=== PATIENT | male | born 1965 | race Caucasian/White ===

== ENCOUNTER → 2019-01-11 | Outpatient (CLI) | payer BC, SELFPAY ==
[2019-01-11 12:43] LABS: Absolute Lymphocyte Count 1.07 X10^3/uL (0.83-4.51); Absolute Neutrophil Count 3.6 X10^3/uL (2.0-7.7); Basophil# 0.04 X10^3/uL; Basophil% 0.7 % (0-1); Eosinophil# 0.46 X10^3/uL; Eosinophils% 8.2 % (0-5); Hematocrit 46.7 % (40-54); Hemoglobin 15.7 g/dL (13.0-16.5); Lymphocyte # 1.07 X10^3/ul (4.0); Lymphocyte % 19.1 % (19-41); Mean Corp Hgb Conc 33.6 g/dL (32-36); Mean Corpuscular Hgb 31.2 pg (27.0-32.0); Mean Corpuscular Volume 92.7 fL (80-94); Mean Platelet Vol. 8.8 fl (6.2-12.0); Monocyte# 0.47 X10^3/uL; Monocyte% 8.4 % (0-10); NRBC Flagged by Analyzer 0 % (0-5); Neutrophil # 3.55 X10^3/uL (2.7-7.7); Neutrophil % 63.4 % (47-70); Platelet Count 305 K/mm3 (150-450); RBC Distribution Width CV 11.9 % (11.6-14.6); RBC Distribution Width SD 40.7 fl (35.1-43.9); Red Blood Count 5.04 M/mm3 (4.6-6.2); White Blood Count 5.6 K/mm3 (4.4-11.0)
[2019-01-11 13:18] LABS: AST(SGOT) 23 U/L (15-37); Alanine Aminotransfer ALT/SGPT 38 U/L (16-61); Albumin, Serum 4.1 g/dL (3.2-5.0); Alkaline Phosphatase 51 U/L (45-117); Anion Gap 9 (5-15); BUN 16 mg/dL (7-18); BUN/Creat Ratio 13.4 RATIO (10-20); Calcium,Total 9.4 mg/dL (8.5-10.1); Chloride 105 mmol/L (98-107); Creatinine, Serum 1.19 mg/dL (0.70-1.30); EST Glomerular Filtration Rate 68 mL/min (>60); Est Glom Filt Rate - Afr Amer 82 mL/min (>60); Globulin 4.1 g/dL (2.2-4.2); Glucose 116 mg/dL (74-106); Potassium 4.2 mmol/L (3.5-5.1); Protein, Total 8.2 g/dL (6.4-8.2); Sodium Level 140 mmol/L (136-145); Thyroid Stim Hormone (TSH) 0.99 uIU/mL (0.358-3.74)
[2019-01-11 13:59] LABS: Hepatitis C Antibody Non-Reactive (Nonreactive)
== END | disposition home or self-care (01) ==
LOC: POLAB3 11:06
PROVIDERS: Family Provider Family Medicine Geriatric Medicine; PCP Family Medicine Geriatric Medicine; Visit Provider Family Medicine Geriatric Medicine
DX: Z00.00 Encounter for general adult medical examination without abnormal findings (principal); Z13.89 Encounter for screening for other disorder
CPT/HCPCS: 36415; 80053; 84443; 85025; 86803

== ENCOUNTER → 2019-07-02 14:27 | Outpatient (CLI) | payer BC, SELFPAY ==
--- NOTE | 2019-07-02 14:35 | RAD_ITS ---
STUDY: X-RAY - LUMBAR SPINE REASON FOR EXAM: Male, 53 years old. Pain TECHNIQUE: 4 view(s) of the lumbar spine were obtained. COMPARISON: None FINDINGS: There is no evidence of fracture or dislocation in the lumbar spine. The vertebral body heights are well-maintained. There are mild degenerative changes in the lower lumbar spine with disc space narrowing at L4/L5 and L5/S1. There is grade 1 anterolisthesis of L5 with respect to S1. RAD/L/S Spine Min 4 Views IMPRESSION: No fracture or dislocation in the lumbar spine. Mild degenerative changes in the lower lumbar spine. Grade 1 anterolisthesis of L5 with respect to S1. Electronically Signed: Mo Duckworth, at 15:05 EST Tel , Service support ,
== END ==
PROVIDERS: PCP Family Medicine Geriatric Medicine; Referring Provider Chiropractor; Visit Provider Chiropractor
DX: S33.5XXA Sprain of ligaments of lumbar spine, initial encounter (principal)
CPT/HCPCS: 72110

== ENCOUNTER → 2020-01-13 08:53 | Outpatient (CLI) | payer BC, SELFPAY ==
[2020-01-13 12:27] LABS: Absolute Lymphocyte Count 1.21 X10^3/uL (0.83-4.51); Absolute Neutrophil Count 3.1 X10^3/uL (2.0-7.7); Basophil# 0.04 X10^3/uL; Basophil% 0.8 % (0-1); Eosinophil# 0.28 X10^3/uL; Eosinophils% 5.5 % (0-5); Hematocrit 47.5 % (40-54); Hemoglobin 15.9 g/dL (13.0-16.5); Lymphocyte # 1.21 X10^3/ul (4.0); Lymphocyte % 23.9 % (19-41); Mean Corp Hgb Conc 33.5 g/dL (32-36); Mean Corpuscular Volume 92.6 fL (80-94); Mean Platelet Vol. 8.9 fl (6.2-12.0); Monocyte# 0.37 X10^3/uL; Monocyte% 7.3 % (0-10); NRBC Flagged by Analyzer 0 % (0-5); Neutrophil # 3.14 X10^3/uL (2.7-7.7); Neutrophil % 62.1 % (47-70); Platelet Count 340 K/mm3 (150-450); RBC Distribution Width CV 12.1 % (11.6-14.6); RBC Distribution Width SD 41.6 fl (35.1-43.9); Red Blood Count 5.13 M/mm3 (4.6-6.2); White Blood Count 5.1 K/mm3 (4.4-11.0)
[2020-01-13 12:45] LABS: AST(SGOT) 32 U/L (15-37); Alanine Aminotransfer ALT/SGPT 54 U/L (16-61); Albumin, Serum 4.2 g/dL (3.2-5.0); Alkaline Phosphatase 50 U/L (45-117); Anion Gap 4 (5-15); BUN 11 mg/dL (7-18); Calcium,Total 9.3 mg/dL (8.5-10.1); Chloride 102 mmol/L (98-107); EST Glomerular Filtration Rate 83 mL/min (>60); Est Glom Filt Rate - Afr Amer 100 mL/min (>60); Globulin 4.1 g/dL (2.2-4.2); Glucose 95 mg/dL (74-106); PSA,Total - Annual Screen 0.75 ng/mL (0.00-4.00); Potassium 4.4 mmol/L (3.5-5.1); Protein, Total 8.3 g/dL (6.4-8.2); Sodium Level 139 mmol/L (136-145); Thyroid Stim Hormone (TSH) 1.79 uIU/mL (0.358-3.74)
== END ==
PROVIDERS: PCP Family Medicine Geriatric Medicine; Visit Provider Family Medicine Geriatric Medicine
DX: I10 Essential (primary) hypertension (principal); Z12.5 Encounter for screening for malignant neoplasm of prostate
CPT/HCPCS: 36415; 80053; 84153; 84443; 85025; G0103

== ENCOUNTER 2020-01-31 10:30 | Outpatient (RCR) | payer BC, SELFPAY ==
--- NOTE | 2020-01-24 09:54 | HP.PTEVAL_ITS ---
Patient's Visit Information MARIANO PENA is a 54 year old M referred to Physical Therapy by Dr. Luis Carter MD with a diagnosis of L sciatica. Date of Evaluation: 01/24/20 Physical Therapist: CATHY Priest - Visit Plan Frequency: 2x /Week Duration: 4 Weeks Plan: Instructed pt to watch posture and do 3 X 10 press ups 5X/ day to help abolish L leg symptoms and to stop if increases leg symptoms for HEP. 2X/ week for 4 weeks for centralization of symptoms, core and postural stability, L LE strength including L hip and L foot with HEP and modalities as needed. - Subjective This started about 1.5 years ago and was at PT and someone felt something in his back and she did not want to see him until he got an MRI... went away on its own until about 6 months ago but the last 6 weeks were the worst. Pt reports that he has a sciatic problems that goes from his L buttock to L lateral thight or his L foot. He has pins and needles. Last week when he was at the (last Friday), he got 4 shots and 5 prescroptions... and with in 5 hours the pain was gone until Friday and then it came back and the last 3 days the pain is worse then it was before and the pins and needles are bad as well. He is worse in standing. He can lay without pain but with some pins and needles. He can sit for as long as he needs to.... He has no weakness in his leg. He sits a lot at work. 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 - Pain back pain Pain Intensity (Out of 10): 0 L buttock pain Pain Intensity (Out of 10): 0 L thigh pain Pain Intensity (Out of 10): 7 L foot Pain Intensity (Out of 10): 2 - Objective Gait: Walks with decrease stance time on the L LE and increase L hip drop. Pt has increase weakness on the L when walking on his heels and on his toes. B patellar DTR 0/3. Trunk AROM: flexion 100%, ext 100%, SB R 100% and SB L 75%. + SLUMP test on the L for min pain. - SLR on the L. LE MMT: B hip flex 4+/5, B knee ext/flex 4/5, L hip abd 4-/5 and R 4+/5, L hip ext 4-/5 and R 4/5. Tight B hip flexors. Sitting posture: sits leaning to the R with rounded L-spine. Prone to GOKUL... slighly decreased thight pain and tingling. PRONE press ups 3 X 10... abolish L thigh pain... numbness in the foot remains. Sitting posture with L-roll immed increases L thigh pain and then press ups 1 X 10 with pt sag abolishes L lateral thigh pain. Palpation: did not feel any difference in tissue on the R vs the L in prone along the L SI area that the pt pointed to and was told that there was abonormal tissue there by his Chiropractor. - Goals Goal 1:: I HEP Goal Time Frame: 4-6 Weeks Goal 2:: Centralize L leg pain Goal Time Frame: 4-6 Weeks Goal 3:: Increase L LE strength by 1/2 muscle grade ( at time of eval: LE MMT: B hip flex 4+/5, B knee ext/flex 4/5, L hip abd 4-/5 and R 4+/5, L hip ext 4-/5 and R 4/5). Goal Time Frame: 4-6 Weeks Goal 4:: Sit with upright posture during treatment sessions to help with carry over to work, home etc. Goal Time Frame: 4-6 Weeks Goal 5:: Be able to heel and toe walk without weakness Goal Time Frame: 4-6 Weeks - Rehabilitation Potential Rehabilitation Potential: Good - Anticipated Interventions Patient/Client Instruction: Educate patient on: Condition, Plan of Care For the Purpose of:: To decrease pain, To increase ROM, To improve nutrient delivery to tissue, To improve muscle performance and motor function, To improve ability to perform ADL's, To increase tolerance to activity/condition/position, To improve performance and independence with ADL's, To decrease level of supervision to perform tasks, To improve ability of physical actions for home/community/work/leisure, To improve gait and locomotor functions, To improve health of tissue, To decrease soft tissue restriction, To increase flexibility/ROM Therapeutic Exercise to Include: Strength training, Body mechanics, Postural training, Flexibilty training, Gait and locomotor training, Neuromotor development, Active ROM, Dynamic Lumbar Stabilization, Leigh Exercises For the Purpose of:: To decrease pain, To decrease swelling/inflammation, To increase ROM, To improve muscle performance and motor function, To improve ability to perform ADL's, To increase tolerance to activity/condition/position, To improve performance and independence with ADL's, To decrease level of supervision to perform tasks, To improve ability of physical actions for home/community/work/leisure, To improve gait and locomotor functions, To improve health of tissue, To decrease soft tissue restriction, To increase flexibility/ROM Manual Therapy Techniques to Include: Mobilization, Soft tissue mobilization For the Purpose of:: To decrease pain, To increase ROM, To improve nutrient delivery to tissue, To improve muscle performance and motor function, To improve ability to perform ADL's, To increase tolerance to activity/condition/position, To increase flexibility/ROM IF ES: Yes Cryotherapy (ice pack, ice massage): Yes Ultrasound (thermal/non thermal): Yes For the Purpose of:: To decrease pain, To decrease swelling/inflammation, To increase ROM, To improve nutrient delivery to tissue, To improve muscle performance and motor function, To improve ability to perform ADL's, To increase tolerance to activity/condition/position Thank you for the opportunity to evaluate your patient. For Medicare and Medicare HMO plans, please review the plan of care and approve it. It will need to be FAXED BACK to us at [phone] for Medicare purposes. For Medicare only, by signing this I certify the plan of care. Please let me know if there are questions or concerns regarding this plan of care. Physician Signature: Date:
--- NOTE | 2020-03-29 13:14 | HP.PTDCNRP_ITS ---
MARIANO Lyles BECKY was seen in my office for initial evaluation on 01/24/20. The following Plan of Care was established for this patient: Initial Frequency: 2x /Week Initial Duration: 4 Weeks Patient/Client Instruction: Educate patient on: Condition, Plan of Care For the Purpose of:: To decrease pain, To increase ROM, To improve nutrient delivery to tissue, To improve muscle performance and motor function, To improve ability to perform ADL's, To increase tolerance to activity/condition/position, To improve performance and independence with ADL's, To decrease level of supervision to perform tasks, To improve ability of physical actions for home/community/work/leisure, To improve gait and locomotor functions, To improve health of tissue, To decrease soft tissue restriction, To increase flexibility/ROM Therapeutic Exercise to Include: Strength training, Body mechanics, Postural training, Flexibilty training, Gait and locomotor training, Neuromotor development, Active ROM, Dynamic Lumbar Stabilization, Leigh Exercises For the Purpose of:: To decrease pain, To decrease swelling/inflammation, To increase ROM, To improve muscle performance and motor function, To improve ability to perform ADL's, To increase tolerance to activity/condition/position, To improve performance and independence with ADL's, To decrease level of supervision to perform tasks, To improve ability of physical actions for home/community/work/leisure, To improve gait and locomotor functions, To improve health of tissue, To decrease soft tissue restriction, To increase flexibility/ROM Manual Therapy Techniques to Include: Mobilization, Soft tissue mobilization For the Purpose of:: To decrease pain, To increase ROM, To improve nutrient delivery to tissue, To improve muscle performance and motor function, To improve ability to perform ADL's, To increase tolerance to activity/condition/position, To increase flexibility/ROM IF ES: Yes Cryotherapy (ice pack, ice massage): Yes Ultrasound (thermal/non thermal): Yes For the Purpose of:: To decrease pain, To decrease swelling/inflammation, To in crease ROM, To improve nutrient delivery to tissue, To improve muscle performance and motor function, To improve ability to perform ADL's, To increase tolerance to activity/condition/position This patient was last seen in our office 01/31/20. Pertinent comments regarding their Physical therapy will appear below: [facility] PT as pt was trying to get an MRI and was going to call in after that and has not. At this point I will be discontinuing this patient from physical therapy. I would be happy to see this patient again in the future if found appropriate by the physician. Thank you! Alexa Christy, MPT
== END 2020-01-31 19:00 | disposition home or self-care (01) ==
LOC: PT 10:30
PROVIDERS: PCP Family Medicine Geriatric Medicine; Referring Provider Family Medicine Geriatric Medicine; Visit Provider Family Medicine Geriatric Medicine
DX: M54.30 Sciatica, unspecified side (principal)
CPT/HCPCS: 97161; 97530

== ENCOUNTER → 2021-01-18 11:45 | Outpatient (CLI) | payer BC, SELFPAY ==
[2020-03-06 13:14] VITALS: BMI 29.7
[2021-01-18 12:56] LABS: Absolute Lymphocyte Count 1.27 X10^3/uL (0.83-4.51); Absolute Neutrophil Count 3.3 X10^3/uL (2.0-7.7); Basophil# 0.03 X10^3/uL; Basophil% 0.6 % (0-1); Eosinophil# 0.28 X10^3/uL; Eosinophils% 5.1 % (0-5); Hematocrit 45.3 % (40-54); Hemoglobin 15.1 g/dL (13.0-16.5); Lymphocyte # 1.27 X10^3/ul (0.83-4.51); Lymphocyte % 23.3 % (19-41); Mean Corp Hgb Conc 33.3 g/dL (32-36); Mean Corpuscular Hgb 31.1 pg (27.0-32.0); Mean Corpuscular Volume 93.4 fL (80-94); Monocyte# 0.57 X10^3/uL; Monocyte% 10.5 % (0-10); NRBC Flagged by Analyzer 0 % (0-5); Neutrophil # 3.28 X10^3/uL (2.7-7.7); Neutrophil % 60.3 % (47-70); Platelet Count 319 K/mm3 (150-450); RBC Distribution Width CV 12.7 % (11.6-14.6); RBC Distribution Width SD 43.8 fl (35.1-43.9); Red Blood Count 4.85 M/mm3 (4.6-6.2); White Blood Count 5.4 K/mm3 (4.4-11.0)
[2021-01-18 13:25] LABS: ALB/GLOB Ratio 1.1 RATIO (0.9-2.4); AST(SGOT) 40 U/L (15-37); Alanine Aminotransfer ALT/SGPT 61 U/L (16-61); Albumin, Serum 4.2 g/dL (3.2-5.0); Alkaline Phosphatase 52 U/L (45-117); Anion Gap 8 (5-15); BUN 14 mg/dL (7-18); BUN/Creat Ratio 13.6 RATIO (10-20); Calcium,Total 9.4 mg/dL (8.5-10.1); Chloride 100 mmol/L (98-107); Creatinine, Serum 1.03 mg/dL (0.70-1.30); EST Glomerular Filtration Rate 79 mL/min (>60); Est Glom Filt Rate - Afr Amer 96 mL/min (>60); Globulin 3.9 g/dL (2.2-4.2); Glucose 89 mg/dL (74-106); PSA,Total - Annual Screen 1.47 ng/mL (0.00-4.00); Potassium 4.3 mmol/L (3.5-5.1); Protein, Total 8.1 g/dL (6.4-8.2); Sodium Level 136 mmol/L (136-145); Thyroid Stim Hormone (TSH) 1.33 uIU/mL (0.358-3.74)
== END ==
PROVIDERS: Visit Provider Family Medicine Geriatric Medicine
DX: I10 Essential (primary) hypertension (principal); Z12.5 Encounter for screening for malignant neoplasm of prostate
CPT/HCPCS: 36415; 80053; 84153; 84443; 85025; G0103

== ENCOUNTER 2021-08-21 12:49 | Outpatient (RCR) | payer BC, SELFPAY ==
--- NOTE | 2021-08-22 11:13 | HP.PTEVAL ---
Patient's Visit Information MARIANO PENA is a 55 year old M referred to Physical Therapy by Dr. Zoila Pope MD with a diagnosis of LEFT FOOT DROP. 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 Patient has had lumbar issues for ~ 2.5 years . Patient had severe radicular symptoms 2 years ago.. Patient was seeing another pain management DR who was prescribing gabapentin. Most recently ,seen DR King but patient only wanted medications. Patient pain issue with pain top of foot mainly at night 8:00 which gabapentin. During day patient has not much pain . But other DR prescribed 2x/day. Left LS to lateral leg to dorsal foot. Aggravating night worse ,standing or sitting extended period of time repeated bending and lifting. Alleviating factors MEDS. Patient voices frustration about getting a epidural injection that he doesn't need at this time. Patient did have epidural injection 2 years ago. Denies paresthesia/tingling- except at night tingling at night. Coughing/sneezing-. Bowel/bladder. SOCIAL : . VOCAATION: [employer] - Objective POSTURE: mild forward posture. GAIT: reciprocal pattern ( although patient states. NUERO: c/o paresthesia /tingling at night dorsal foot, reflexes L3-4,L4-,L5-S1 2/3. SYMMTIES: align. LUMBAR ROM: flexion WNL, extension min loss , side glides min loss. FLEXABLITY: hams mild tight. MMT: quads/hip/knee WFL, ANKLE (PEAAK FORCE)DF R-31.8,L-17.3 - Special Tests L/S Slump test left side: Negative L/S Slump test right side: Negative L/S Left Straight Leg Raise: Negative L/S Right Straight Leg Raise: Negative Lumbar Standing: Flexion - Mechanical Response: No effect Lumbar Standing: Flexion - Symptoms During Testing: No effect Lumbar Standing: Flexion - Symptoms After Testing: No effect Lumbar Standing: Extension - Mechanical Response: No effect Lumbar Standing: Extension - Symptoms During Testing: No effect Lumbar Standing: Extension - Symptoms After Testing: No effect Lumbar Standing: Right Side Glides - Mechanical Response: No effect Lumbar Standing: Right Side [place] - Symptoms During Testing: No effect Lumbar Standing: Right Side [place] - Symptoms After Testing: No effect Lumbar Standing: Left Side [place] - Mechanical Response: No effect Lumbar Standing: Left Side [place] - Symptoms During Testing: No effect Lumbar Standing: Left Side [place] - Symptoms After Testing: No effect Lumbar Lying: Flexion - Mechanical Response: No effect Lumbar Lying: Flexion - Symptoms During Testing: No effect Lumbar Lying: Flexion - Symptoms After Testing: No effect Lumbar Lying: Extension - Mechanical Response: No effect Lumbar Lying: Extension - Symptoms During Testing: No effect Lumbar Lying: Extension - Symptoms After Testing: No effect - Balance/Special Test Scores Oswestry Low Back Score: 13 - Goals Goal 1:: Patient will be I with HEP. Goal Time Frame: 4-6 Weeks Goal 2:: Patient to improve posture for body mechanics 90% of the time. Goal Time Frame: 4-6 Weeks Goal 3:: Patient demonstrate 50% improvement with decrease symptoms with foot symptoms . Goal Time Frame: 4-6 Weeks Goal 4:: Patient to improve strength left dorsiflexion by 10 # peak force to impr Goal Time Frame: 4-6 Weeks Goal 5:: Patient to improve back oswestry score by 5 points to improve QOL Goal Time Frame: 4-6 Weeks - Rehabilitation Potential Physical Therapy Diagnosis: This patient has h/o lumbar radiculopathy causing and eventually weakness ankle dorsiflexion along with pain during day with sitting and symptoms in foot at night with numbness and tingling thus benefit from skilled PT Rehabilitation Potential: Good - Anticipated Interventions Patient/Client Instruction: Educate patient on: Condition, Plan of Care For the Purpose of:: To decrease pain, To increase ROM, To improve muscle performance and motor function, To increase tolerance to activity/condition/position, To improve performance and independence with ADL's, To improve ability of physical actions for home/community/work/leisure, To improve health of tissue, To decrease soft tissue restriction, To increase flexibility/ROM, To reduce risk of recurrence, To improve ability to perform tasks related to life management Therapeutic Exercise to Include: Strength training, Body mechanics, Postural training, Flexibilty training, Active ROM, Dynamic Lumbar Stabilization For the Purpose of:: To decrease pain, To increase ROM, To improve muscle performance and motor function, To improve ability to perform ADL's, To increase tolerance to activity/condition/position, To improve ability of physical actions for home/community/work/leisure, To improve health of tissue, To decrease soft tissue restriction, To increase flexibility/ROM, To prevent re-injury Thank you for the opportunity to evaluate your patient. For Medicare and Medicare HMO plans, please review the plan of care and approve it. It will need to be FAXED BACK to us at [phone] for Medicare purposes. For Medicare only, by signing this I certify the plan of care. Please let me know if there are questions or concerns regarding this plan of care. Physician Signature: Date:
--- NOTE | 2022-02-13 13:40 | HP.PT.NRP ---
MARIANO PENA was seen in my office for initial evaluation on 08/21/21. The following Plan of Care was established for this patient: Initial Frequency: 2x /Week Initial Duration: 4 Weeks Patient/Client Instruction: Educate patient on: Condition, Plan of Care For the Purpose of:: To decrease pain, To increase ROM, To improve muscle performance and motor function, To increase tolerance to activity/condition/position, To improve performance and independence with ADL's, To improve ability of physical actions for home/community/work/leisure, To improve health of tissue, To decrease soft tissue restriction, To increase flexibility/ROM, To reduce risk of recurrence, To improve ability to perform tasks related to life management Therapeutic Exercise to Include: Strength training, Body mechanics, Postural training, Flexibilty training, Active ROM, Dynamic Lumbar Stabilization For the Purpose of:: To decrease pain, To increase ROM, To improve muscle performance and motor function, To improve ability to perform ADL's, To increase tolerance to activity/condition/position, To improve ability of physical actions for home/community/work/leisure, To improve health of tissue, To decrease soft tissue restriction, To increase flexibility/ROM, To prevent re-injury This patient was last seen in our office . Pertinent comments regarding their Physical therapy will appear below: Patient was seen for PT for left foot drop thus is d/c At this point I will be discontinuing this patient from physical therapy. I would be happy to see this patient again in the future if found appropriate by the physician. Thank you! Keshawn Beckford, PT, Cert MDT, OCS Balance/Gait/Functional tests - Balance/Special Test Scores Oswestry Low Back Score: 13
== END 2021-08-21 19:00 | disposition home or self-care (01) ==
LOC: PT 12:49
PROVIDERS: PCP Family Medicine Geriatric Medicine; Referring Provider Anesthesiology Pain Medicine; Visit Provider Anesthesiology Pain Medicine
DX: M21.372 Foot drop, left foot (principal)
CPT/HCPCS: 97110; 97162

== ENCOUNTER → 2022-01-24 | Outpatient (CLI) | payer OTHER, SELFPAY ==
[2022-01-24 16:42] LABS: Absolute Lymphocyte Count 1.21 X10^3/uL (0.83-4.51); Absolute Neutrophil Count 3.5 X10^3/uL (2.0-7.7); Basophil# 0.04 X10^3/uL; Basophil% 0.7 % (0-1); Eosinophil# 0.24 X10^3/uL; Eosinophils% 4.3 % (0-5); Hematocrit 42.1 % (40-54); Lymphocyte # 1.21 X10^3/ul (0.83-4.51); Lymphocyte % 21.9 % (19-41); Mean Corp Hgb Conc 33.3 g/dL (32-36); Mean Corpuscular Hgb 31.3 pg (27.0-32.0); Monocyte# 0.57 X10^3/uL; Monocyte% 10.3 % (0-10); NRBC Flagged by Analyzer 0 % (0-5); Neutrophil # 3.46 X10^3/uL (2.7-7.7); Neutrophil % 62.6 % (47-70); Platelet Count 307 K/mm3 (150-450); RBC Distribution Width SD 41.7 fl (35.1-43.9); Red Blood Count 4.48 M/mm3 (4.6-6.2); White Blood Count 5.5 K/mm3 (4.4-11.0)
[2022-01-24 17:10] LABS: AST(SGOT) 25 U/L (15-37); Alanine Aminotransfer ALT/SGPT 41 U/L (16-61); Albumin, Serum 3.7 g/dL (3.2-5.0); Alkaline Phosphatase 53 U/L (45-117); Anion Gap 5 (5-15); BUN 21 mg/dL (7-18); BUN/Creat Ratio 18.3 RATIO (10-20); Calcium,Total 8.9 mg/dL (8.5-10.1); Chloride 103 mmol/L (98-107); Creatinine, Serum 1.15 mg/dL (0.70-1.30); EST Glomerular Filtration Rate 70 mL/min (>60); Est Glom Filt Rate - Afr Amer 84 mL/min (>60); Globulin 3.7 g/dL (2.2-4.2); Glucose 89 mg/dL (74-106); Potassium 4.5 mmol/L (3.5-5.1); Protein, Total 7.4 g/dL (6.4-8.2); Sodium Level 140 mmol/L (136-145); Thyroid Stim Hormone (TSH) 1.23 uIU/mL (0.358-3.74)
== END | disposition home or self-care (01) ==
PROVIDERS: PCP Family Medicine Geriatric Medicine; Visit Provider Family Medicine Geriatric Medicine
DX: Z00.00 Encounter for general adult medical examination without abnormal findings (principal); I10 Essential (primary) hypertension; Z12.5 Encounter for screening for malignant neoplasm of prostate
CPT/HCPCS: 36415; 80053; 84153; 84443; 85025; G0103

== ENCOUNTER → 2023-01-27 | Outpatient (CLI) | payer BC, SELFPAY ==
[2023-01-27 12:04] LABS: Absolute Lymphocyte Count 1.12 X10^3/uL (0.83-4.51); Absolute Neutrophil Count 4.1 X10^3/uL (2.0-7.7); Basophil# 0.03 X10^3/uL; Basophil% 0.5 % (0-1); Eosinophil# 0.34 X10^3/uL; Eosinophils% 5.4 % (0-5); Hematocrit 42.9 % (40-54); Hemoglobin 14.2 g/dL (13.0-16.5); Lymphocyte # 1.12 X10^3/ul (0.83-4.51); Lymphocyte % 17.9 % (19-41); Mean Corp Hgb Conc 33.1 g/dL (32-36); Mean Corpuscular Hgb 30.3 pg (27.0-32.0); Mean Corpuscular Volume 91.7 fL (80-94); Mean Platelet Vol. 8.9 fl (6.2-12.0); Monocyte# 0.71 X10^3/uL; Monocyte% 11.3 % (0-10); NRBC Flagged by Analyzer 0 % (0-5); Neutrophil # 4.05 X10^3/uL (2.7-7.7); Neutrophil % 64.7 % (47-70); Platelet Count 302 K/mm3 (150-450); RBC Distribution Width CV 12.6 % (11.6-14.6); RBC Distribution Width SD 41.9 fl (35.1-43.9); Red Blood Count 4.68 M/mm3 (4.6-6.2); White Blood Count 6.3 K/mm3 (4.4-11.0)
[2023-01-27 12:33] LABS: ALB/GLOB Ratio 0.9 RATIO (0.9-2.4); AST(SGOT) 21 U/L (15-37); Alanine Aminotransfer ALT/SGPT 36 U/L (16-61); Albumin, Serum 3.7 g/dL (3.2-5.0); Alkaline Phosphatase 61 U/L (45-117); Anion Gap 3 (5-15); BUN 17 mg/dL (7-18); BUN/Creat Ratio 16.5 RATIO (10-20); Calcium,Total 8.9 mg/dL (8.5-10.1); Chloride 103 mmol/L (98-107); Creatinine, Serum 1.03 mg/dL (0.70-1.30); EST Glomerular Filtration Rate 79 mL/min (>60); Est Glom Filt Rate - Afr Amer 95 mL/min (>60); Globulin 3.9 g/dL (2.2-4.2); Glucose 121 mg/dL (74-106); PSA,Total - Annual Screen 1.03 ng/mL (0.00-4.00); Protein, Total 7.6 g/dL (6.4-8.2); Sodium Level 136 mmol/L (136-145)
== END | disposition home or self-care (01) ==
PROVIDERS: PCP Family Medicine Geriatric Medicine; Visit Provider Family Medicine Geriatric Medicine
DX: I10 Essential (primary) hypertension (principal)
CPT/HCPCS: 36415; 80053; 84153; 84443; 85025; G0103

== ENCOUNTER → 2023-01-31 | Outpatient (CLI) | payer BC, SELFPAY ==
--- NOTE | 2023-02-03 07:55 | PFT ---
INTRODUCTION: The patient is a 57-year-old male who presents for pulmonary function studies secondary to a diagnosis of shortness of breath. Respiratory therapy reported good patient effort. Bronchodilators were used during testing. INTERPRETATION: Forced expiration spirometry demonstrates no evidence of a large airways obstructive ventilatory defect. There was a significant response to aerosolized bronchodilators, however. Spirograms are of good quality and plateau normally. Body plethysmography was performed and revealed lung volumes to be within normal limits. Diffusing capacity by single breath CO was also within normal limits. IMPRESSION: Stigmata of small airways disease with significant bronchodilator response noted.
== END | disposition home or self-care (01) ==
LOC: PSN 09:21
PROVIDERS: PCP Family Medicine Geriatric Medicine; Referring Provider Family Medicine Geriatric Medicine; Visit Provider Family Medicine Geriatric Medicine
DX: R06.02 Shortness of breath (principal); R07.9 Chest pain, unspecified
CPT/HCPCS: 94060; 94726; 94729

== ENCOUNTER → 2023-02-13 | Outpatient (CLI) | payer BC, SELFPAY ==
--- NOTE | 2023-02-14 09:04 | STRESSREP ---
Stress Test Report Exercise stress test. 57-year-old man with a history of shortness of breath Stress protocol: Resting EKG demonstrates normal sinus rhythm with a rate of 60 bpm resting blood pressure is 134/72 mmHg. The patient exercised according to the regular Josef protocol for a total duration of 8 minutes and 45 seconds attaining a maximum heart rate of 151 bpm which was 93% of maximum predicted heart rate; the maximum workload was 10.1 metabolic equivalents. At rest there were no ST or T wave changes noted to suggest ischemia and at peak exercise upsloping ST changes and some flattening of ST changes were present which did not meet the criteria for ischemia. No clinical angina was noted. The test was terminated due to shortness of breath. The peak blood pressure was 230/90 mmHg which was a hypertensive response to exercise and the rate-pressure product was 27,200. Conclusion: Exercise stress test with nonspecific EKG changes not meeting the criteria for ischemia.
== END | disposition home or self-care (01) ==
PROVIDERS: PCP Family Medicine Geriatric Medicine; Referring Provider Family Medicine Geriatric Medicine; Visit Provider Family Medicine Geriatric Medicine
DX: R06.02 Shortness of breath (principal); R07.9 Chest pain, unspecified
CPT/HCPCS: 93017

== ENCOUNTER → 2023-08-06 | Outpatient (CLI) | payer BC, SELFPAY ==
--- NOTE | 2023-08-06 13:46 | CT_ITS ---
STUDY: LOW DOSE CT LUNG CANCER SCREENING REASON FOR EXAM: Male, 57 years old. NICOTINE DEPENDENCE. Former smoker. 35 pack history. RADIATION DOSAGE (If Supplied By Facility): CTDIvol = ( 3.02 ) mGy, DLP = ( 108.35 ) mGycm TECHNIQUE: No contrast was administered. Low dose technique was utilized (average mAS-38 and kVp 120). 1.25 mm axial source images with a slice interval of 1.25-mm were reconstructed in lung windows. 2.5 mm axial source images with a slice interval of 2.5-mm were reconstructed in lung windows. 5.0 mm axial source images with a slice interval of 5.0-mm were reconstructed in soft tissue windows. COMPARISON: None. NODULES: No suspicious nodules are seen. Emphysema: Hyperinflation. Mild degree of emphysematous changes. Endobronchial lesion: None Aorta: Atherosclerotic plaque formation of the aortic arch. CORONARY ARTERIES: Coronary artery calcification is seen. Heart: Unremarkable Pulmonary artery: Unremarkable Mediastinal nodes: Unremarkable. Other chest and abdominal findings: CT/Low Dose CT Lung Screening IMPRESSION: Lung-RADS category 2 - Continue annual screening with LDCT in 12 months. IMPORTANT NOTES FOR USE: ACR Lung-RADS Version 1.1 Assessment Categories Release Date: 2018 Category: Coded 0-4 bases on nodule(s) with highest degree of suspicion. Negative screen is defined as categories 1 and 2; a positive screen is defined as categories 3 and 4. Category 3 and 4A nodules that are unchanged on interval CT should be coded as category 2, and individuals returned to screening in 12 months. Category 4X: Category 3 or 4 nodules with additional imaging findings that increase the suspicion of lung cancer, such as spiculation, GGN that doubles in size in 1 year, enlarged lymph notes, etc. Category Modifiers: S (significant finding unrelated to lung cancer) Electronically Signed: Tadeo Renner MD at 15:23 EST ,
--- OUTSIDE RECORDS SUMMARY | 2023-08-06 23:11 | XMS RPT_ITS | CCD ---
Author Name Unknown Address [address] [place] [address] Organization [facility] Care Team Providers Care Air Sealing Technician Name Role Phone Call, Anthony Greer Primary Care Provider [phone] Allergies Allergy Classification Reported Allergen(s) Allergy Type Date of Onset Reaction(s) Facility (4 sources) ct-scan dye [Other] Propensity to adverse reactions 6 [facility] (1 source) OTHER; Translations: [OTHER] Propensity to adverse reactions (disorder) 6 [facility] Repository Medications Completed/Discontinued Medications Medication Drug Class(es) Dates Sig (Normalized) Sig (Original) diclofenac sodium 75 mg delayed release oral tablet (4 sources) Nonsteroidal Anti-inflammatory Drug Start: 08-10-2021 take 1 tablet by mouth once daily diclofenac, EC, (VOLTAREN) 75 mg EC tablet Take 75 mg by mouth once daily. 0 08/10/2021 Active Problems Problem Classification Problem Date Documented Da te Episodic/Chronic Acquired foot deformities (4 sources) Left foot drop; Translations: [Foot drop, left foot] Episodic Osteoarthritis (3 sources) Inflammation of joint of foot; Translations: [Primary osteoarthritis, unspecified ankle and foot] Chronic Other nervous system disorders (1 source) Neuropathy; Translations: [Polyneuropathy, unspecified] Chronic Results Test Name Value Interpretation Reference Range Facil ity Encounters Encounter Date Encounter Type Care Provider Facility Start: 11-27-2022 Telephone encounter Rodolfo sanders MD Work Phone: Internal Medicine [place] Procedures Date Procedure Procedure Detail Performing Clinician Start: 10-08-2021 Radex foot complete minimum 3 views Corbin Aly Work Phone: Plan of Treatment Date Care Activity Detail Author Start: 02-07-2023 Influenza vaccination INFLUENZA (Sea son Ended) [facility] Start: 06-09-2022 DEPRESSION ASSESSMENT DEPRESSION ASS ESSMENT [facility] Start: 02-07-2022 Influenza vaccination C [facility] Start: 11-09-2020 COVID-19 VACCINE (2 - Booster for Kezia series) COVID-19 VACCINE (2 - Booster for Kezia series) [facility] Start: 09-21-2019 PROSTATE CANCER SCRE ENING DISCUSSION PROSTATE CANCER SCREENING DISCUSSION [facility] Start: 2014 SHINGRIX VACCINE (1 of 2) SHINGRIX V ACCINE (1 of 2) [facility] Start: 2009 COLOGUARD (FIT-DNA) COLOGUARD (FIT-D NA) [facility] Start: 2009 Colonoscopy COLONOSCOPY [facility] Start: 2009 COLORECTAL CANCER SCREENING COLORECTAL CANCER SCREENING [facility] Start: [address] COLONOGRAPHY [facility] Start: 2009 DIABETES SCREEN DIABETES SCREEN [facility] Start: 2009 FECAL OCCULT BLOOD FECAL OCCULT BLOO D [facility] Start: 2009 SIGMOIDOSCOPY SIGMOIDOSCOPY [facility] Start: 09-21-1999 LIPID SCREEN LIPID SCREEN [facility] Start: 09-21-1983 Urine microalbumin profile DTAP,TDAP ,TD (1 - Tdap) [facility] Start: 1982 HEPATITIS C SCREENING HEPATITIS C SC REENING [facility] Start: 1982 HIV SCREENING HIV SCREENING [facility] Start: 1976 Adult depression scr eening assessment DEPRESSION SCREENING [facility] Start: 1964 HEPATITIS B (1 of 3 - 3-dose series) HEPATITIS B (1 of 3 - 3-dose series) [facility] Payers Date Payer Category Payer Unknown [employer] ACCE SS PPO [id number] 2022-Present [phone] [address] [place] [address] PPO [id number] 2021 Private Health Insurance [employer] MANAGED CHOICE POS [id number] 2021-Present [phone] [address] [place] [address] POS [id number] 2021 Private Health Insurance [employer] MANAGED CHOICE POS [id number] 2021-Present [phone] [address] [place] [address] POS [id number] 2021 Private Health Insurance [id number] Social History Date Type Detail Facility [facility]: [facility] History of tobacco use Chews Tobacco [facility] Start: 10-08-2021 Alcohol intake Current drinke r of alcohol (finding) [facility] Start: 1965 Sex Assigned At Not on file [facility] Start: 09-28-2021 End: 10-08-2021 Exposure to SARS-CoV-2 (event) Not sure [facility] Start: 06-23-2019 Tobacco use and exposure User of smo keless tobacco [facility] Clinical Notes 10-08-2021 to 11-27-2022 Telephone Encounter - Renita Pollard RN - 11/27/2022 4:34 PM EDTTelephone Encounter - Danielle Hernandez LPN - 11/27/2022 4:25 PM EDTTelephone Encounter - Rodolfo Mckeon MD - 11/27/2022 12:51 PM EDT Note Date & Type Note Facility 11-27-2022 Miscellaneous Notes Formattin g of this note might be different from the original. Pt called and is notified of providers message and instructions. Pt voices understanding, states his elbow is hurting so he will have to see other provider. Pt will call back to schedule with Dr Valentine. Renita Pollard RN Message left to pt with info and requested return call to arrange appt. Okay. Schedule in 1-2 months. Request records. Pts called to see if pt could be added as a pt. She is a pt and spoke with Dr. Mckeon. Please advise if pt can be established. documented in this encounter [facility] 06-28-2022 Note HNO ID: [id number] Author: Carri Hunt LPN Service: ? Author Type: LICENSED NURSE Type: Progress Notes Filed: 06/28/2022 2:19 PM Note Text: Per Demetrius Wilde was provided with powerstep original inserts, size 9, and instructed/educated in its application, wear, and care. All questions were answered, and patient was able to demonstrate competence with the necessary skills to utilize the above equipment. Carri Hunt LPN [facility] 06-28-2022 History of Presen t illness Narrative Per Demetrius Wilde was provided with powerstep original inserts, size 9, and instructed/educated in its application, wear, and care. All questions were answered, and patient was able to demonstrate competence with the necessary skills to utilize the above equipment. Carri Hunt LPN documented in this encounter [facility] 10-08-2021 History of Presen t illness Narrative Per Demetrius Wilde was provided with a pair of Power Step original inserts, size 9 -9 1/2, and instructed/educated in its application, wear, and care. All questions were answered, and patient was able to demonstrate competence with the necessary skills to utilize the above equipment. Naila Diaz RN Images from the original note were not included. Initial Podiatric Office Visit: Chief Complaint: This 56 year old male who presents with chief complaint:pain in both feet HPI Patient presents to clinic for evaluation of b/l feet. Patient complains of burning on both feet. He states that his feet feel like he has a tourniquet on his foot. This has been going on for 2.5 years. He had issues of sciatia 2.5 years ago and was treated at [facility] with epidural. That epidural injection helped his pain in back and legs but the pain in his foot did not relieve. Patient was prescribed gabapentin and voltaren. The gabapentin and voltaren did help. Unfortunately, his pain specialist left town. The new pain specialist feels he needs another epidural injection . Patient is not interested in another injection. Patient new specialist feels his pain is related to drop foot from his back and he will not treat him press tender long goods with neurontin or voltaren, rather recommends epidural. Patient is here to have his foot evaluated. PAIN EVALUATION 10/08/2021 0931 Pain Level: 2 Pain Location: Foot-Left Description: Other: See comment Feel like a weight on my foot, like a torniquet. Duration Amount of Time: 2 Duration Units: Years Frequency: Continuous Intervention/Comfort measure: Medication No results found for: HBA1C PCP: Anthony Diaz PAST MEDICAL HISTORY Diagnosis Date NEGATIVE MEDICAL HISTORY Current Outpatient Medications Medication Sig gabapentin (NEURONTIN) 300 mg capsule Take 300 mg by mouth once daily. diclofenac, EC, (VOLTAREN) 75 mg EC tablet Take 75 mg by mouth once daily. metaxalone (SKELAXIN) 800 mg tablet Take 800 mg by mouth once daily. No current facility-administered medications for this visit. ALLERGIES Allergen Reactions Ct-Scan Dye [Other] Hives PAST SURGICAL HISTORY Procedure Laterality Date PAST SURGICAL HISTORY OF Left and right ACL repair FAMILY HISTORY Problem Relation Age of Onset Lung Cancer Mother Breast Cancer Mother Lung Cancer Father No Known Problems Sister No Known Problems Maternal Grandmother No Known Problems Maternal Grandfather Cancer Paternal Grandmother other (Heart disease) Paternal Grandfather Social History Tobacco Use Smoking status: Never Smoker Smokeless tobacco: Current User Types: Chew Vaping Use Vaping Use: Never used Substance Use Topics Alcohol use: Yes Comment: occasionally Drug use: Not on file REVIEW OF SYSTEMS GENERAL: Negative for Malaise, significant weight loss, fever RESPIRATORY: Negative for cough, wheezing and shortness of breath CARDIOVASCULAR: Negative for chest pain, leg swelling and palpitations GI: Negative for abdominal discomfort, blood in stools or black stools and change in bowel habits : Negative for dysuria, frequency and incontinence MUSCULOSKELETAL: Negative for joint pain or swelling, back pain, and muscle pain. SKIN: Negative for lesions, rash, and itching. HEMATOLOGY/LYMPHOLOGY Negative for prolonged bleeding, bruising easily, and swollen nodes. ENDOCRINE: Negative for cold or heat intolerance, polyuria, polydipsia and goiter. NEURO: negative Physical Exam: Constitutional: Pt is a well developed 56 year old male who is alert, oriented and cooperative Eyes: Following during examination. No redness or drainage. Respiratory: RR normal and nonlabored. Even breathing. No evidence of distress or shortness of breath. Psychology: Patient is engaged during conversation. Normal affect and mood. Does not appear depressed or anxious during encounter. Vascular: Dorsalis pedis and posterior tibial pulses palpable as b/l Capillary Fill time < 5 seconds to digits 1-5 b/l Skin temperature warm to warm proximal to distal b/l Hair growth present to digits Neurological: intact light touch/epicritic sensation Vibratory sensation decreased b/l decreased protective sensation + significant neurological deficits Dermatological: Nails 1-5 b/l appear normal. Webspaces clean and dry 1-4 b/l. Skin appears well hydrated and supple. good color, texture, turgor. No open lesions present. No callosities present. Musculoskeletal/Orthopaedic: Patient has pain to palpation of left tarsal metatarasl joint Foot type is pronated structurally with forefoot abduction AJ ROM is full with knee extended and flexed 1st MPJ is full when loaded and no pain or crepitus are noted with ROM. MTJ, STJ are full and free of pain and crepitus. +5/5 muscle strength dorsiflexion, plantarflexion, inversion, eversion right +4/5 muscle strength dorsiflexion, plantarflexion, inversion, eversion left Radiographs: ordered ASSESSMENT: (M19.079) Arthritis of foot (primary encounter diagnosis) (M21.372) Left foot drop (G62.9) Neuropathy (M21.41, M21.42) Pes planus of both feet PLAN: 1. History and physical examination performed. 2. Discussed pain in left foot. While this patient demonstrates slight decrease in strength of left foot relative to right foot and has evidence of neuropatrhy, I do feel his pain is likely more arthritis than the dropfoot or neuropathy 3. I am going to recommend powerstep inserts. If he continues to have pain, consider midtarsal joint injection under xray guide 4. xrays ordered today Corbin Aly DPM Podiatry [address] [facility] [address] Dept: [phone] Dept documented in this encounter [facility] 10-08-2021 History of Presen t illness Narrative Radiology Service Progress Note PATIENT NAME: Demetrius Smith DATE OF SERVICE: October 08, 2021 TIME: 10:35 AM PATIENT IDENTITY VERIFICATION COMPLETED USING TWO (2) IDENTIFIERS: Name and Date of confirmed by patient verbally. FALL SCREENING: Has the patient had 2 falls in the last year or 1 fall with injury or currently using an Ambulatory Assistive Device (Walker, Cane, Wheelchair, Crutches, etc.)? No PATIENT GENDER DATA: Male PATIENT RELEVANT IMPLANT DATA REVIEWED: Not Applicable RADIOLOGY DEPARTMENT: General X-ray: Exam(s) Completed: Lower Extremity X-Ray(s): Foot, Bilateral and Wt. Bearing PERIPHERAL IV DATA: Not applicable SIGNED BY: RT Mary Lou(R) October 08, 2021 10:35 AM documented in this encounter [facility] 10-08-2021 Instructions Corbin Aly - 10/08/2021 10:18 AM EDT Powerstep Original Full length. Can purchase at [facility] [employer] here in [place], [employer] in [place] or [place]. Also can find in [employer] in [facility]. Powersteps can also be purchased online, starting around $25.00 If you have a metatarsal or dancer pad for your feet apply the pad directly to the insole so you can interchange between your shoes. Find a shoe with a removable insole and take this out and replace with your powerstep insole. Always bring powersteps with you when shopping for shoes so that you can make sure that everything fits well together If inserts do not help, I would consider injection under xray documented in this encounter [facility] Diagnosis Arthritis of foot Unspecified arthropathy, ankle and foot Pes planus of both feet [facility] Diagnosis Arthritis of foot- Primary Unspecified arthropathy, ankle and foot Pes planus of both feet documented in this encounter [facility] for referral (narrative)* Diagnostic Procedure Only (Routine) - Closed Specialty Diagnoses / Procedures Referred By Leatha hinojosa Referred To Contact XR IMAGING Diagnoses Arthritis of foot Pes planus of both feet Procedures XR FOOT GENERAL 3V AP/LAT/OBL BILATERAL RADEX FOOT COMPLETE MINIMUM 3 VIEWS Corbin Aly[address] [place] [address] Xr Imaging Referral ID Status Reason Start Date Expiration Date V isits Requested Visits Authorized [id number] Closed Auto-Generate d Referral 10/08/2021 11/07/[address] [facility] for referral (narrative)* Diagnostic Procedure Only (Routine) - Closed Specialty Diagnoses / Procedures Referred By Leatha hinojosa Referred To Contact XR IMAGING Diagnoses Arthritis of foot Pes planus of both feet Procedures XR FOOT GENERAL 3V AP/LAT/OBL BILATERAL RADEX FOOT COMPLETE MINIMUM 3 VIEWS Corbin Aly [address] [place] [address] Xr Imaging Referral ID Status Reason Start Date Expiration Date V isits Requested Visits Authorized [id number] Closed Auto-Generate d Referral 10/08/2021 11/07/[address] [facility] for visit Narrative* Diagnostic Procedure Only (Routine) - Closed Specialty Diagnoses / Procedures Referred By Contac t Referred To Contact XR IMAGING Diagnoses Arthritis of foot Pes planus of both feet Procedures XR FOOT GENERAL 3V AP/LAT/OBL BILATERAL RADEX FOOT COMPLETE MINIMUM 3 [place] [address] Xr Imaging Referral ID Status Reason Start Date Expiration Date V isits Requested Visits Authorized [id number] Closed Auto-Generate d Referral 10/08/2021 11/07/2022 1 1 [facility] Summary Purpose Family History No Family History Records Found Advance Directives No Advanced Directives Records Found Additional Source Comments Source Comments (unrecognize d section and content) In the event this informatio n is protected by the Federal Confidentiality of Alcohol and Drug Abuse Patient Records regulations: The Federal rules restrict any use of the information to criminally investigate or prosecute any alcohol or drug abuse patient.[facility] the event this information is protected by the Federal Confidentiality of Alcohol and Drug Abuse Patient Records regulations: The Federal rules restrict any use of the information to criminally investigate or prosecute any alcohol or drug abuse patient.[facility] the event this information is protected by the Federal Confidentiality of Alcohol and Drug Abuse Patient Records regulations: The Federal rules restrict any use of the information to criminally investigate or prosecute any alcohol or drug abuse patient.[facility] the event this information is protected by the Federal Confidentiality of Alcohol and Drug Abuse Patient Records regulations: The Federal rules restrict any use of the information to criminally investigate or prosecute any alcohol or drug abuse patient.[facility] Reason for Visit (unrecogniz ed section and content) Reason Comments Patient Question Care Teams (unrecognized sec tion and content) Air Sealing Technician Relationship Specialty Start Date End Date Call, Anthony Greer [place], [place] [id number] [facility] 07/02/04 Air Sealing Technician Relationship Specialty Start Date End Date Call, Anthony Percy [place], [place] [id number] [facility] 07/02/04 Air Sealing Technician Relationship Specialty Start Date End Date Call, Anthony Percy [place], [place] [id number] [facility] General 07/02/04 (unrecognized sect ion and content) No Status Records Found INFORMATION SOURCE (unrecogn ized section and content) FOR RECORDS PERTAINING TO PATIENTS WHO ARE OR HAVE BEEN ENROLLED IN A CHEMICAL DEPENDENCY/SUBSTANCEABUSE PROGRAM, SOME INFORMATION MAY BE OMITTED. This clinical summary was aggregated from multiple sources. Caution should be exercised in using it in the provision of clinical care. This summary normalizes information from multiple sources, and as a consequence, information in this document may materially change the coding, format and clinical context of patient data. In addition, data may be omitted in some cases. CLINICAL DECISIONS SHOULD BE BASED ON THE PRIMARY CLINICAL RECORDS. [facility]. provides no warranty or guarantee of the accuracy or completeness of information in this document.
== END | disposition home or self-care (01) ==
LOC: CT 13:45
PROVIDERS: PCP Family Medicine Geriatric Medicine; Referring Provider Family Medicine Geriatric Medicine; Visit Provider Family Medicine Geriatric Medicine
DX: F17.210 Nicotine dependence, cigarettes, uncomplicated (principal)
CPT/HCPCS: 71271

== ENCOUNTER → 2024-02-02 | Outpatient (CLI) | payer OTHER, SELFPAY ==
[2024-02-02 09:51] LABS: Absolute Lymphocyte Count 1.37 X10^3/uL (0.83-4.51); Absolute Neutrophil Count 3.1 X10^3/uL (2.0-7.7); Basophil# 0.05 X10^3/uL; Basophil% 0.9 % (0-1); Eosinophil# 0.51 X10^3/uL; Eosinophils% 9.2 % (0-5); Hematocrit 43.9 % (40-54); Hemoglobin 14.4 g/dL (13.0-16.5); Lymphocyte # 1.37 X10^3/ul (0.83-4.51); Lymphocyte % 24.7 % (19-41); Mean Corp Hgb Conc 32.8 g/dL (32-36); Mean Corpuscular Hgb 30.3 pg (27.0-32.0); Mean Corpuscular Volume 92.4 fL (80-94); Mean Platelet Vol. 8.5 fl (6.2-12.0); Monocyte# 0.53 X10^3/uL; Monocyte% 9.5 % (0-10); NRBC Flagged by Analyzer 0 % (0-5); Neutrophil # 3.08 X10^3/uL (2.7-7.7); Neutrophil % 55.5 % (47-70); Platelet Count 300 K/mm3 (150-450); RBC Distribution Width CV 12.3 % (11.6-14.6); Red Blood Count 4.75 M/mm3 (4.6-6.2); White Blood Count 5.6 K/mm3 (4.4-11.0)
[2024-02-02 12:10] LABS: ALB/GLOB Ratio 0.9 RATIO (0.9-2.4); AST(SGOT) 22 U/L (15-37); Alanine Aminotransfer ALT/SGPT 31 U/L (16-61); Albumin, Serum 3.7 g/dL (3.2-5.0); Alkaline Phosphatase 54 U/L (45-117); Anion Gap 4 (5-15); BUN 17 mg/dL (7-18); BUN/Creat Ratio 15.3 RATIO (10-20); Calcium,Total 9.2 mg/dL (8.5-10.1); Chloride 104 mmol/L (98-107); Cholesterol 263 mg/dL (200); Creatinine, Serum 1.11 mg/dL (0.70-1.30); EST Glomerular Filtration Rate 72 mL/min (>60); Est Glom Filt Rate - Afr Amer 87 mL/min (>60); Globulin 4.1 g/dL (2.2-4.2); Glucose 122 mg/dL (74-106); High Density Lipoprotein 56 mg/dL; PSA,Total - Annual Screen 1.22 ng/mL (0.00-4.00); Potassium 4.8 mmol/L (3.5-5.1); Protein, Total 7.8 g/dL (6.4-8.2); Sodium Level 138 mmol/L (136-145); Triglycerides 115 mg/dL; Very Low Density Lipoprotein 23 mg/dL (5-40)
== END | disposition home or self-care (01) ==
LOC: POLAB3 09:36
PROVIDERS: PCP Family Medicine Geriatric Medicine; Visit Provider Family Medicine Geriatric Medicine
DX: I10 Essential (primary) hypertension (principal); Z12.5 Encounter for screening for malignant neoplasm of prostate; E78.5 Hyperlipidemia, unspecified
CPT/HCPCS: 36415; 80053; 80061; 84153; 84443; 85025; G0103

== ENCOUNTER → 2024-08-17 | Outpatient (CLI) | payer OTHER, SELFPAY ==
[2024-08-17 12:49] LABS: Absolute Lymphocyte Count 1.42 X10^3/uL (0.83-4.51); Absolute Neutrophil Count 3.9 X10^3/uL (2.0-7.7); Basophil# 0.06 X10^3/uL; Basophil% 0.9 % (0-1); Eosinophils% 9.2 % (0-5); Hematocrit 43.3 % (40-54); Hemoglobin 14.5 g/dL (13.0-16.5); Lymphocyte # 1.42 X10^3/ul (0.83-4.51); Lymphocyte % 21.9 % (19-41); Mean Corp Hgb Conc 33.5 g/dL (32-36); Mean Corpuscular Hgb 30.9 pg (27.0-32.0); Mean Corpuscular Volume 92.3 fL (80-94); Mean Platelet Vol. 8.9 fl (6.2-12.0); Monocyte# 0.47 X10^3/uL; Monocyte% 7.2 % (0-10); NRBC Flagged by Analyzer 0 % (0-5); Neutrophil # 3.93 X10^3/uL (2.7-7.7); Neutrophil % 60.6 % (47-70); Platelet Count 305 K/mm3 (150-450); RBC Distribution Width SD 43.9 fl (35.1-43.9); Red Blood Count 4.69 M/mm3 (4.6-6.2); White Blood Count 6.5 K/mm3 (4.4-11.0)
[2024-08-17 13:24] LABS: ALB/GLOB Ratio 1.3 RATIO (0.9-2.4); AST(SGOT) 23 U/L (<=37); Alanine Aminotransfer ALT/SGPT 24 U/L (<=46); Albumin, Serum 4.5 g/dL (3.5-5.0); Alkaline Phosphatase 59 U/L (40-129); Anion Gap 12 (5-15); BUN 18 mg/dL (4-19); BUN/Creat Ratio 18.6 RATIO (10-20); Calcium,Total 9.6 mg/dL (7.6-11.0); Carbon Dioxide 25.8 mmol/L (21.0-32.0); Chloride 100 mmol/L (98-108); Creatinine, Serum 0.97 mg/dL (0.70-1.20); EST Glomerular Filtration Rate 89 (>60); Globulin 3.3 g/dL (2.2-4.2); Glucose 157 mg/dL (70-99); Potassium 4.3 mmol/L (3.3-5.1); Protein, Total 7.8 g/dL (5.9-8.4); Sodium Level 138 mmol/L (133-145); Total Bilirubin 0.43 mg/dL (0.00-1.30)
[2024-08-18 09:44] LABS: Hemoglobin A1c 6.1 % (<=5.6)
== END | disposition home or self-care (01) ==
LOC: POLAB3 11:17
PROVIDERS: PCP Family Medicine Geriatric Medicine; Visit Provider Family Medicine Geriatric Medicine
DX: I10 Essential (primary) hypertension (principal); R73.09 Other abnormal glucose
CPT/HCPCS: 36415; 80053; 83036; 85025

== ENCOUNTER → 2024-09-10 | Outpatient (CLI) | payer OTHER, SELFPAY ==
--- NOTE | 2024-09-10 14:06 | ECHOD_ITS ---
Reason For Study Reason For Study: SOB Procedure This was a 2D Doppler, Color Flow transthoracic echocardiogram. Exam performed in department. Left Ventricle Normal LV size. Left ventricular systolic function is normal. The estimated ejection fraction is 60 %. No regional wall motion abnormalities noted. Right Ventricle Normal size and thickness. Normal systolic function. Atria The left atrium is mildly enlarged. Normal right atrium. Mitral Valve Normal mitral valve. Tricuspid Valve Normal tricuspid valve. Mild tricuspid valve insufficiency. Pulmonary artery systolic pressure is 28 mmHg. Aortic Valve Trisinus/trileaflet aortic valve. Pulmonic Valve Normal pulmonic valve. Great Vessels Normal aortic root. The pulmonary artery is normal size. Normal inferior vena cava. Pericardium/Pleural No pericardial effusion. MMode/2D Measurements & Calculations LVIDd: 4.6 cm IVSd: 1.3 cm Ao root diam: 3.2 cm LVIDs: 3.4 cm LVPWd: 1.1 cm RVDd: 3.7 cm FS: 26.3 % LAV(MOD-bp): 73.4 ml LVAd ap4: 32.6 cm2 LVAd ap2: 33.9 cm2 LAV(MOD-bp) Indexed: 37.6 ml/m2 LVLd ap4: 9.2 cm LVLd ap2: 9.3 cm LAV(MOD-sp2): 59.3 ml EDV(MOD-sp4): 95.3 ml EDV(MOD-sp2): 104.9 ml LAV(MOD-sp4): 90.8 ml EDV(sp4-el): 98.3 ml EDV(sp2-el): 105.2 ml LVAs ap4: 18.4 cm2 LVAs ap2: 21.0 cm2 LVLs ap4: 8.0 cm LVLs ap2: 8.1 cm ESV(MOD-sp4): 36.5 ml ESV(MOD-sp2): 50.3 ml ESV(sp4-el): 35.9 ml ESV(sp2-el): 46.1 ml EF(MOD-sp4): 61.7 % EF(MOD-sp2): 52.0 % EF(sp4-el): 63.4 % SV(MOD-sp4): 58.8 ml SV(MOD-sp2): 54.6 ml SV(sp4-el): 62.4 ml SI(MOD-sp4): 30.1 ml/m2 SI(MOD-sp2): 28.0 ml/m2 LA A4 area: 25.7 cm2 LA dimension(2D): 4.0 cm RA A4 area: 15.3 cm2 TAPSE: 1.8 cm Time Measurements MV dec time: 0.17 sec Doppler Measurements & Calculations MV E max fracisco: 82.6 cm/sec Lat Peak E' Fracisco: 16.8 cm/sec Med Peak E' Fracisco: 9.4 cm/sec MV A max fracisco: 58.8 cm/sec E/E' lat: 4.9 E/E' med: 8.7 MV E/A: 1.4 Ao V2 max: 146.2 cm/sec LV V1 max: 93.5 cm/sec MV dec slope: 490.1 cm/sec2 Ao max P.5 mmHg LV V1 max P.5 mmHg Ao V2 mean: 102.7 cm/sec LV V1 mean P.0 mmHg Ao mean P.8 mmHg LV V1 mean: 65.6 cm/sec Ao V2 VTI: 32.8 cm LV V1 VTI: 21.7 cm AV (velocity ratio): 0.66 PA V2 max: 119.3 cm/sec TR max fracisco: 247.2 cm/sec PA V2 mean: 87.2 cm/sec TR max P.4 mmHg ECHO/Echo Complete Interpretation Summary Normal LV size. Left ventricular systolic function is normal. The estimated ejection fraction is 60 %. The left atrium is mildly enlarged. Ordering Physician: Luis Carter Chi Referring Physician: Luis Carter Chi Performed By: Kamila Mitchell, RDMADALYN
--- NOTE | 2024-09-10 14:07 | CDU_ITS ---
Reason For Study Reason For Study: SOB Rt. Velocities/BP Lt. Velocities/BP Prox CCA 69.6/16.8 cm/sec. Prox CCA 110.4/24.8 cm/sec. Mid CCA 166.8/42.6 cm/sec. Mid CCA 88.2/22.5 cm/sec. Dist CCA 117.4/27.9 cm/sec. Dist CCA 101.0/27.9 cm/sec. Prox ICA 139.0/20.4 cm/sec. Prox ICA 158.7/44.6 cm/sec. Mid ICA 79.0/28.6 cm/sec. Mid ICA 79.5/24.5 cm/sec. Dist ICA 66.8/25.7 cm/sec. Dist ICA 68.5/16.8 cm/sec. Rt. ICA/CCA = 0.8. Lt. ICA/CCA = 1.8. Prox ECA 156.5/18.2 cm/sec. Prox ECA 154.3/18.2 cm/sec. Rt. Vert. 70.7/15.7 cm/sec. Lt. Vert. 38.6/9.0 cm/sec. Right Extracranial There is homogeneous, smooth atherosclerotic plaque noted in the right common carotid artery. Stenosis noted at Mid CCA. There is heterogeneous, irregular atherosclerotic plaque noted in the right internal carotid artery. There is heterogeneous, irregular atherosclerotic plaque noted in the right external carotid artery. Antegrade flow is noted in the right vertebral artery. Left Extracranial There is intimal thickening but no significant atherosclerotic plaque noted in the left common carotid artery. There is heterogeneous, irregular atherosclerotic plaque noted in the left internal carotid artery. There is homogeneous, smooth atherosclerotic plaque noted in the left external carotid artery. Antegrade flow is noted in the left vertebral artery. Procedure Carotid Duplex [id number]. This is a Carotid Duplex examination using B-mode, color flow and specral Doppler. Exam performed in department. VL/Carotid Duplex Ultrasound Interpretation Summary Moderate (50-69%) stenosis right extracranial internal carotid. Elevated veolci ties mid common carotid artery Moderate (50-69%) stenosis left extracranial internal carotid. Patent and antegrade vertebrals bilaterally. Ordering Physician: Luis Carter Chi Referring Physician: Luis Carter Chi Performed By: Nayeli Childers RVT
== END | disposition home or self-care (01) ==
PROVIDERS: PCP Family Medicine Geriatric Medicine; Referring Provider Family Medicine Geriatric Medicine; Visit Provider Family Medicine Geriatric Medicine
DX: R55 Syncope and collapse (principal); R06.02 Shortness of breath; R07.9 Chest pain, unspecified
CPT/HCPCS: 93306; 93880

== ENCOUNTER → 2024-11-16 | Outpatient (CLI) | payer OTHER, SELFPAY ==
[2024-11-16 11:19] LABS: ALB/GLOB Ratio 1.3 RATIO (0.9-2.4); AST(SGOT) 23 U/L (<=37); Alanine Aminotransfer ALT/SGPT 23 U/L (<=46); Albumin, Serum 4.3 g/dL (3.4-4.8); Alkaline Phosphatase 57 U/L (40-129); Anion Gap 10 (5-15); BUN 19 mg/dL (4-19); BUN/Creat Ratio 18.6 RATIO (10-20); Calcium,Total 9.3 mg/dL (7.6-11.0); Carbon Dioxide 27.9 mmol/L (21.0-32.0); Chloride 102 mmol/L (98-108); Cholesterol 269 mg/dL (<=200); Creatinine, Serum 1.02 mg/dL (0.70-1.20); EST Glomerular Filtration Rate 84 (>60); Globulin 3.2 g/dL (2.2-4.2); Glucose 118 mg/dL (70-99); High Density Lipoprotein 52 mg/dL; Low Density Lipoprotein Calc. 180 mg/dL; Potassium 4.5 mmol/L (3.3-5.1); Protein, Total 7.5 g/dL (5.9-8.4); Sodium Level 139 mmol/L (133-145); Total Bilirubin 0.32 mg/dL (0.00-1.30); Triglycerides 185 mg/dL; Very Low Density Lipoprotein 37 mg/dL (5-40); cholesterol:hdl ratio screen 5.19
--- OUTSIDE RECORDS SUMMARY | 2024-11-16 21:02 | XMS RPT_ITS | CCD ---
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 Luis Chiang Primary Care Provider Juliane, Dr. Lusi Chiang Referring Provider Juliane, Dr. Luis Chiang Other Provider Dr. Chapin Buckley Attending Provider Juliane CUTLER, Dr. Luis Chiang Primary Care Provider Juliane CUTLER, Dr. Luis Chiang Attending Provider Juliane CUTLER, Dr. Luis Chiang Referring Provider Johnathan CUTLER, Dr. Vazquez Attending Provider Pina CUTLER, Dr. Wei Attending Provider Elvin CUTLER, Dr. Koch Attending Provider Juliane, Luis Chi Referring Unavailable Juliane, Luis Chi Primary Care Unavailable August Oconnor Attending Unavailable Juliane, Luis Chi Referring Unavailable Juliane, Luis Chi Primary Care Unavailable Juliane, Luis Chi Attending Unavailable Juliane, Luis Chi Primary Care Unavailable Juliane, Luis Chi Attending Unavailable Juliane, Luis Chi Primary Care Unavailable Juliane, Luis Chi Attending Unavailable Juliane, Luis Chi Primary Care Unavailable August Oconnor Attending Unavailable Elvin, August Referring Unavailable Juliane, Luis Chi Referring Unavailable Juliane, Luis Chi Primary Care Unavailable Eriberto Heller Attending Unavailable Juliane, Luis Chi Primary Care Unavailable George Mann Attending Unavailable Allergies Allergy Classification Reported Allergen(s) Allergy Type Date of Onset Reaction(s) Facility (4 sources) ct-scan dye [Other] Propensity to adverse reactions 6 [facility] (2 sources) Contrast media Allergy to substance 0 [facility] Work Phone: (8 sources) Iodine Drug Allergy 0 [facility] (1 source) OTHER; Translations: [OTHER] Propensity to adverse reactions (disorder) 6 [facility] (6 sources) Triiodobenzoic Acids Allergy to substance 3 [facility] Comment on above: CT DYE (1 source) Iodine Drug Allergy 5 [facility] (1 source) Iodinated Contrast Media Drug allergy (disorder) 5 [facility] Medications Current Medications Medication Drug Class(es) Dates Sig (Normalized) Sig (Original) Fluticasone Furoate (1 source) Corticosteroid Start: 10-20-2024 take 200 ug by inhalation once daily Fluticasone Furoate (Arnuity Ellipta) 200 mcg/actuation blister with device Active 1 NMA INHALATION daily October 20, 2024 12:00am gabapentin 300 mg oral capsule (14 sources) Anti-epileptic Agent Start: 09-03-2024 take 1 capsule by mouth at bedtime Gabapentin 300 mg capsule Active 300 mg PO AT BEDTIME September 03, 2024 10:43am Start: 08-10-2021 take 1 capsule by mo [facility] once daily gabapentin (NEURONTIN) 300 mg capsule Take 300 mg by mouth once daily. 0 08/10/2021 Active Start: 03-06-2020 End: 09-03-2024 take 1 capsule by mouth twice daily Gabapentin 300 mg capsule Discontinued 300 mg PO TWICE A DAY March 06, 2020 12:00am September 03, 2024 10:45am Comment on above: Take 300 mg by mouth once daily. Completed/Discontinued Medications Medication Drug Class(es) Dates Sig (Normalized) Sig (Original) [id number] 200 actuat albuterol 0.09 mg/actuat metered dose inhaler (2 sources) beta2-Adrenergic Agonist Start: 09-03-2024 End: 10-20-2024 Albuterol Sulfate 90 mcg/actuation HFA aerosol inhaler Discontinued 2 NMA INHALATION Q4H as needed September 03, 2024 12:00am October 20, 2024 10:08am diclofenac sodium 75 mg delayed release oral tablet (12 sources) Nonsteroidal Anti-inflammatory Drug Start: 08-10-2021 take 1 tablet by mouth once daily diclofenac, EC, (VOLTAREN) 75 mg EC tablet Take 75 mg by mouth once daily. 0 08/10/2021 Active Start: 03-06-2020 End: 09-03-2024 take 1 tablet by mouth twice daily Diclofenac Sodium 75 mg tablet,delayed release (DR/EC) Discontinued 75 mg PO TWICE A DAY March 06, 2020 12:00am September 03, 2024 10:44am Comment on above: Take 75 mg by mouth once daily. metaxalone 800 mg oral tablet (12 sources) Start: 08-11-2021 take 1 tablet by mouth once daily metaxalone (SKELAXIN) 800 mg tablet Take 800 mg by mouth once daily. 0 08/11/2021 Active Start: 03-06-2020 End: 09-03-2024 take 1 tablet by mouth three times daily Metaxalone 800 mg tablet Discontinued 800 mg PO THREE TIMES A DAY March 06, 2020 12:00am September 03, 2024 10:44am Comment on above: Take 800 mg by mouth once daily. pantoprazole 40 mg delayed release oral tablet (8 sources) Proton Pump Inhibitor Start: End: take 1 tablet by mouth once daily Pantoprazole 40 mg tablet,delayed release (DR/EC) Discontinued 40 mg PO DAILY March 06, 2020 12:00am September 03, 2024 10:44am Problems Active Problems Problem Classification Problem Date Documented Da te Episodic/Chronic Acquired foot deformities (4 sources) Left foot drop; Translations: [Foot drop, left foot] Episodic Alcohol-related disorders (3 sources) Alcohol abuse; Translations: [Alcohol abuse, uncomplicated] Onset: 10-20-2024 10-20-2024 Chronic Asthma (3 sources) Asthma; Translations: [Unspecified asthma, uncomplicated] Onset: 10-20-2024 10-20-2024 Chronic Conditions associated with dizziness or vertigo (5 sources) Lightheadedness; Translations: [Dizziness and giddiness] Onset: 10-20-2024 09-03-2024 Episodic Disorders of lipid metabolism (5 sources) Hyperlipidemia; Translations: [Hyperlipidemia, unspecified] Onset: 10-20-2024 09-03-2024 Chronic Essential hypertension (3 sources) Essential hypertension; Translations: [Essential (primary) hypertension] Onset: 08-26-2024 09-03-2024 Chronic Osteoarthritis (3 sources) Inflammation of joint of foot; Translations: [Primary osteoarthritis, unspecified ankle and foot] Chronic Other circulatory disease (2 sources) Disorder of carotid artery; Translations: [Disorder of arteries and arterioles, unspecified] 10-20-2024 Chronic Other circulatory disease (1 source) Disorder of arteries and arterioles, unspecified; Translations: [Disorder of arteries and arterioles, unspecified] Onset: 10-20-2024 Chronic Other lower respiratory disease (1 source) Shortness of breath; Translations: [Shortness of breath] Onset: 09-16-2024 Episodic Other nervous system disorders (1 source) Neuropathy; Translations: [Polyneuropathy, unspecified] Chronic Syncope (5 sources) Syncope; Translations: [Syncope and collapse] Onset: 10-20-2024 09-03-2024 Episodic Past or Other Problems Problem Classification Problem Date Documented Da te Episodic/Chronic Unclassified (7 sources) history bilateral ACL repair 12-28-2021 Results Test Name Value Interpretation Reference Range Facility Cardiology Visit Reporton Cardiology Visit Report [facility] [address] [place] [address] OFFICE VISIT Date of Service: 10/20/24 MR#: [id number] Acct: [id number] Name: DEMETRIUS PENA Rep #: [id number] : 1965 Provider: Dr. August Oconnor MD Age/Sex: 59/M Location: [facility] Status: Signed HPI HPI History of Present Illness Details: This gentleman has been referred to us for syncopal episode. Per patient, in July of this year, he was partying with his and some friends. Per him, he drank excessively and also had some THC Gummies. While with his friends, he momentarily just put his head back. According to him, his friend shook him and then he was back to normal. The same episode occurred about 5 days later when he has not had any alcohol or the Gummies. He just felt lightheaded on that occasion. Per patient, he feels lightheaded for a few seconds almost on a daily basis. According to him, he could be sitting or walking when he momentarily feels lightheaded. No syncope or presyncope. Per him, he just feels unsteady on his feet for a couple of seconds most. Denies any chest pains either at rest or with exertion. Per patient, he previously used to get shortness of breath with exertion however since his inhaler was changed for his asthma, he has not been having any shortness of breath either at rest or with exertion. Denies any palpitations. No orthopnea or PND. No ankle edema. Patient has had an echocardiogram done. It showed normal left ventricular systolic function. Mildly dilated left atrium was reported. Doppler ultrasound of the carotids showed 50 to 69% stenosis bilaterally. Intake Vital Signs 10/20/24 08:35 Height 5 ft 7 in Weight: 185 lb BMI 29.0 BP 138/62 H Blood Pressure Location Lt brachial Position Sitting Respiration 20 H Pulse 64 Pulse Source NIBP Intake Visit Reasons: SYNCOPE (JULIANE) Camera Technician Required: No Accompanied by: Self Is patient in pain?: No Allergies Iodinated Contrast Media (CT) Allergy (Intermediate, Verified 10/20/24 10:07) Hives iodine Allergy (Intermediate, Verified 10/20/24 10:07) Hives Medications ???Medication ???Instructions ???Recorded ???Confirmed ???Type gabapentin 300 mg capsule 300 mg PO QHS 09/03/24 10/20/24 Hi story fluticasone furoate 200 1 inh inhalation QDAY 10/20/24 History mcg/actuation blister powder for inhalation (Arnuity Ellipta) Ejection fraction %: 60 Have you fallen in the past year?: No PFSH Medical History (Updated 10/20/24 @ 10:[address] August Oconnor MD) Essential hypertension Hyperlipidemia Asthma Lightheadedness Syncope Sciatica History of back problems Arthritis Surgical History History of repair of ACL History of colonoscopy Family History Aunt Breast cancer Mother Breast cancer Father Cancer Lung Cancer Grandfather Hypertension Grandmother Hypertension Social History Smoking Status: Former smoker quit date: 06/09/87 alcohol intake: current substance use type: other details: THC Gummies ROS Const Const: Negative for fatigue, weakness, headache(s) or weight gain ENT ENT: Positive for dizziness and balance problems; Negative for headache(s) or Nosebleed/epistaxis Cardio Chest Pain: No Palpitations: No Edema: None Muscle aches with walking: None Resp Respiratory: Negative for SOB with activity, SOB at rest or SOB orthopnea SOB lying down GI GI: Negative nausea, vomiting or heartburn Musc Musc: Positive for balance problems; Negative for muscle aches/ myalgia, muscle weakness or joint pain Neuro Neuro: Positive for dizziness and lightheadedness; Negative for near syncope, syncope, headache(s) or weakness Endo Endo: Negative for fatigue Cardiology Exam Const Appearance: comfortable and no acute distress Nutritional Appearance: well nourished Neck Neck: no JVD Carotids: Negative bruit Chest Auscultation: Bilateral: Clear to Auscultation Cardio Rate: regular rate Rhythm: regular rhythm Heart sounds: S1 normal and S2 normal Neuro General: patient alert, patient awake and patient oriented x3 Extremities Lower Extremity Edema: None: Bilateral Supplemental Info Supplemental Information Echocardiogram 09/10/2024: Interpretation Summary Normal LV size. Left ventricular systolic function is normal. The estimated ejection fraction is 60 %. The left atrium is mildly enlarged. Stress Test 02/14/2023: Conclusion: Exercise stress test with nonspecific EKG changes not meeting the criteria for ischemia. Carotid Duplex US 09/12/2024: Interpretation Summary Moderate (50-69%) stenos (more content not included)... Normal [facility] Duplex ultrasound of carotid artery reportOrdered By: Eriberto Heller on 09-12-[address] [facility] [address] [place] [address] Carotid Duplex Ultrasound 09/10/24 1440 MR#: [id number] Acct: [id number] Name: DEMETRIUS PENA Rafal Rep #:[id number] : 1965 58 From: Eriberto Goins Attending Dr: Dr. Luis Carter MD Status: REG CLI Ordering Dr: Luis Carter MD Date: 10/01 Location: [facility] Sex: M C Admitted: Reason For Study Reason For Study: SOB Rt. Velocities/BP Lt. Velocities/BP Prox CCA 69.6/16.8 cm/sec. Prox CCA 110.4/24.8 cm/sec. Mid CCA 166.8/42.6 cm/sec. Mid CCA 88.2/22.5 cm/sec. Dist CCA 117.4/27.9 cm/sec. Dist CCA 101.0/27.9 cm/sec. Prox ICA 139.0/20.4 cm/sec. Prox ICA 158.7/44.6 cm/sec. Mid ICA 79.0/28.6 cm/sec. Mid ICA 79.5/24.5 cm/sec. Dist ICA 66.8/25.7 cm/sec. Dist ICA 68.5/16.8 cm/sec. Rt. ICA/CCA = 0.8. Lt. ICA/CCA = 1.8. Prox ECA 156.5/18.2 cm/sec. Prox ECA 154.3/18.2 cm/sec. Rt. Vert. 70.7/15.7 cm/sec. Lt. Vert. 38.6/9.0 cm/sec. Right Extracranial There is homogeneous, smooth atherosclerotic plaque noted in the right common carotid artery. Stenosis noted at Mid CCA. There is heterogeneous, irregular atherosclerotic plaque noted in the right internal carotid artery. There is heterogeneous, irregular atherosclerotic plaque noted in the right external carotid artery. Antegrade flow is noted in the right vertebral artery. Left Extracranial There is intimal thickening but no significant atherosclerotic plaque noted in the left common carotid artery. There is heterogeneous, irregular atherosclerotic plaque noted in the left internal carotid artery. There is homogeneous, smooth atherosclerotic plaque noted in the left external carotid artery. Antegrade flowis noted in the left vertebral artery. Procedure Carotid Duplex [id number]. This is a Carotid Duplex examination using B-mode, color flow and specral Doppler. Exam performed in department. VL/Carotid Duplex Ultrasound Interpretation Summary Moderate (50-69%) stenosis right extracranial internal carotid. Elevated veolcities mid common carotid artery Moderate (50-69%) stenosis left extracranial internal carotid. Patent and antegrade vertebrals bilaterally. __ Ordering Physician: Luis Carter Chi Referring Physician: Luis Carter Chi Performed By: Nayeli Childers RVT 09/12/24 1338 Date _ Eriberto Heller MD CC: Dr. Luis Carter MD ~ Date Dictated: 09/10/24 1440 Date Transcribed: 09/12/241337 Medical Technologist Chemistry: Signed [facility] Work Phone: Carotid Duplex Ultrasoundon 09-10-2024 Carotid Duplex Ultrasound [facility] [address] [place] [address] Carotid Duplex Ultrasound 09/10/24 1440 MR#: [id number] Acct: [id number] Name: BECKYDEMETRIUS Rafal Rep #: [id number] : 1965 58 From: Eriberto Heller MD Attending Dr: Dr. Luis Carter MD Status: REG CLI Ordering Dr: Luis Carter MD Date: 09/10/24 Location: [facility] Sex: M C Admitted: Reason For Study Reason For Study: SOB Rt. Velocities/BP Lt. Velocities/BP Prox CCA 69.6/16.8 cm/sec. Prox CCA 110.4/24.8 cm/sec. Mid CCA 166.8/42.6 cm/sec. Mid CCA 88.2/22.5 cm/sec. Dist CCA 117.4/27.9 cm/sec. Dist CCA 101.0/27.9 cm/sec. Prox ICA 139.0/20.4 cm/sec. Prox ICA 158.7/44.6 cm/sec. Mid ICA 79.0/28.6 cm/sec. Mid ICA 79.5/24.5 cm/sec. Dist ICA 66.8/25.7 cm/sec. Dist ICA 68.5/16.8 cm/sec. Rt. ICA/CCA = 0.8. Lt. ICA/CCA = 1.8. Prox ECA 156.5/18.2 cm/sec. Prox ECA 154.3/18.2 cm/sec. Rt. Vert. 70.7/15.7 cm/sec. Lt. Vert. 38.6/9.0 cm/sec. Right Extracranial There is homogeneous, smooth atherosclerotic plaque noted in the right common carotid artery. Stenosis noted at Mid CCA. There is heterogeneous, irregular atherosclerotic plaque noted in the right internal carotid artery. There is heterogeneous, irregular atherosclerotic plaque noted in the right external carotid artery. Antegrade flow is noted in the right vertebral artery. Left Extracranial There is intimal thickening but no significant atherosclerotic plaque noted in the left common carotid artery. There is heterogeneous, irregular atherosclerotic plaque noted in the left internal carotid artery. There is homogeneous, smooth atherosclerotic plaque noted in the left external carotid artery. Antegrade flow is noted in the left vertebral artery. Procedure Carotid Duplex [id number]. This is a Carotid Duplex examination using B-mode, color flow and specral Doppler. Exam performed in department. VL/Carotid Duplex Ultrasound Interpretation Summary Moderate (50-69%) stenosis right extracranial internal carotid. Elevated veolcities mid common carotid artery Moderate (50-69%) stenosis left extracranial internal carotid. Patent and antegrade vertebrals bilaterally. __ Ordering Physician: Luis Carter Chi Referring Physician: Luis Carter Chi Performed By: Nayeli Childers, RVT 09/12/24 1338 Date Eriberto Heller MD CC: Dr. Luis Carter MD Date Dictated: 09/10/24 1440 Date Transcribed: 09/12/24 1338 Medical Technologist Chemistry: Signed Normal [facility] Echo Completeon 09-10-2024 Echo Complete [facility] [place] [address] Echo Complete 09/10/24 1412 MR#: [id number] Acct: [id number] Name: DEMETRIUS PENA Rep #: [id number] : 1965 58 From: George Mann MD Attending Dr: Dr. Luis Carter MD Status: REG CLI Ordering Dr: Luis Carter MD Date: 09/10/24 Location: [facility] Sex: M C Admitted: Reason For Study Reason For Study: SOB Procedure This was a 2D Doppler, Color Flow transthoracic echocardiogram. Exam performed in department. Left Ventricle Normal LV size. Left ventricular systolic function is normal. The estimated ejection fraction is 60 %. No regional wall motion abnormalities noted. Right Ventricle Normal size and thickness. Normal systolic function. Atria The left atrium is mildly enlarged. Normal right atrium. Mitral Valve Normal mitral valve. Tricuspid Valve Normal tricuspid valve. Mild tricuspid valve insufficiency. Pulmonary artery systolic pressure is 28 mmHg. Aortic Valve Trisinus/trileaflet aortic valve. Pulmonic Valve Normal pulmonic valve. Great Vessels Normal aortic root. The pulmonary artery is normal size. Normal inferior vena cava. Pericardium/Pleural No pericardial effusion. MMode/2D Measurements Calculations LVIDd: 4.6 cm IVSd: 1.3 cm Ao root diam: 3.2 cm LVIDs: 3.4 cm LVPWd: 1.1 cm RVDd: 3.7 cm FS: 26.3 % __ LAV(MOD-bp): 73.4 ml LVAd ap4: 32.6 cm2 LVAd ap2: 33.9 cm2 LAV(MOD-bp) Indexed: 37.6 ml/m2 LVLd ap4: 9.2 cm LVLd ap2: 9.3 cm LAV(MOD-sp2): 59.3 ml EDV(MOD-sp4): 95.3 ml EDV(MOD-sp2): 104.9 ml LAV(MOD-sp4): 90.8 ml EDV(sp4-el): 98.3 ml EDV(sp2-el): 105.2 ml LVAs ap4: 18.4 cm2 LVAs ap2: 21.0 cm2 LVLs ap4: 8.0 cm LVLs ap2: 8.1 cm ESV(MOD-sp4): 36.5 ml ESV(MOD-sp2): 50.3 ml ESV(sp4-el): 35.9 ml ESV(sp2-el): 46.1 ml EF(MOD-sp4): 61.7 % EF(MOD-sp2): 52.0 % EF(sp4-el): 63.4 % __ SV(MOD-sp4): 58.8 ml SV(MOD-sp2): 54.6 ml SV(sp4-el): 62.4 ml SI(MOD-sp4): 30.1 ml/m2 SI(MOD-sp2): 28.0 ml/m2 __ LA A4 area: 25.7 cm2 LA dimension(2D): 4.0 cm RA A4 area: 15.3 cm2 __ TAPSE: 1.8 cm Time Measurements MV dec time: 0.17 sec Doppler Measurements Calculations MV E max fracisco: 82.6 cm/sec Lat Peak E' Fracisco: 16.8 cm/sec Med Peak E' Fracisco: 9.4 cm/sec MV A max fracisco: 58.8 cm/sec E/E' lat: 4.9 E/E' med: 8.7 MV E/A: 1.4 __ Ao V2 max: 146.2 cm/sec LV V1 max: 93.5 cm/sec MV dec slope: 490.1 cm/sec2 Ao max P.5 mmHg LV V1 max P.5 mmHg Ao V2 mean: 102.7 cm/sec LV V1 mean P.0 mmHg Ao mean P.8 mmHg LV V1 mean: 65.6 cm/sec Ao V2 VTI: 32.8 cm LV V1 VTI: 21.7 cm AV (velocity ratio): 0.66 __ PA V2 max: 119.3 cm/sec TR max fracisco: 247.2 cm/sec PA V2 mean: 87.2 cm/sec TR max P.4 mmHg ECHO/Echo Complete Interpretation Summary Normal LV size. Left ventricular systolic function is normal. The estimated ejection fraction is 60 %. The left atrium is mildly enlarged. __ Ordering Physician: Luis Carter Chi Referring Physician: Luis Carter Chi Performed By: Kamila Mitchell RDCS 09/10/24 1558 Date George Mann MD CC: Dr. Luis Carter MD Date Dictated: 09/10/24 141 Date Transcribed: 09/10/241557 Medical Technologist Chemistry: Signed Normal [facility] Echocardiogram study reportO rdered By: George Mann on 09-10-[address] [facility] [address] [place] [address] Echo Complete 09/10/24 1412 MR#: [id number] Acct: [id number] Name: DEMETRIUS PENA Rep #:[id number] : 1965 58 From: George Goins Attending Dr: Dr. Luis Carter MD Status: REG CLI Ordering Dr: Luis Carter MD Date: 10/01 Location: [facility] Sex: M C Admitted: Reason For Study Reason For Study: SOB Procedure This was a 2D Doppler, Color Flow transthoracic echocardiogram. Exam performed in department. Left Ventricle Normal LV size. Left ventricular systolic function is normal. The estimated ejection fraction is 60 %. No regional wall motion abnormalities noted. Right Ventricle Normal size and thickness. Normal systolic function. Atria The left atrium is mildly enlarged. Normal right atrium. Mitral Valve Normal mitral valve. Tricuspid Valve Normal tricuspid valve. Mild tricuspid valve insufficiency. Pulmonary artery systolic pressure is 28 mmHg. Aortic Valve Trisinus/trileaflet aortic valve. Pulmonic Valve Normal pulmonic valve. Great Vessels Normal aortic root. The pulmonary artery is normal size. Normal inferior vena cava. Pericardium/Pleural No pericardial effusion. MMode/2D Measurements & Calculations LVIDd: 4.6 cm IVSd: 1.3 cm Ao root diam: 3.2 cm LVIDs: 3.4 cm LVPWd: 1.1 cm RVDd: 3.7 cm FS: 26.3 % ____ LAV(MOD-bp): 73.4 ml LVAd ap4: 32.6 cm2 LVAd ap2: 33.9 cm2 LAV(MOD-bp) Indexed: 37.6 ml/m2 LVLd ap4: 9.2 cm LVLd ap2: 9.3 cm LAV(MOD-sp2): 59.3 ml EDV(MOD-sp4): 95.3 ml EDV(MOD-sp2): 104.9 ml LAV(MOD-sp4): 90.8 ml EDV(sp4-el): 98.3 ml EDV(sp2-el): 105.2 ml LVAs ap4: 18.4 cm2 LVAs ap2: 21.0 cm2 LVLs ap4: 8.0 cm LVLs ap2: 8.1 cm ESV(MOD-sp4): 36.5 ml ESV(MOD-sp2): 50.3 ml ESV(sp4-el): 35.9 ml ESV(sp2-el): 46.1 ml EF(MOD-sp4): 61.7 % EF(MOD-sp2): 52.0 % EF(sp4-el): 63.4 % __ SV(MOD-sp4): 58.8 ml SV(MOD-sp2): 54.6 ml SV(sp4-el): 62.4 ml SI(MOD-sp4): 30.1 ml/m2 SI(MOD-sp2): 28.0 ml/m2 ____ LA A4 area: 25.7 cm2 LA dimension(2D): 4.0 cm RA A4 area: 15.3 cm2 ____ TAPSE: 1.8 cm Time Measurements MV dec time: 0.17 sec Doppler Measurements & Calculations MV E max fracisco: 82.6 cm/sec Lat Peak E' Fracisco: 16.8 cm/sec Med Peak E' Fracisco: 9.4 cm/sec MV A max fracisco: 58.8 cm/sec E/E' lat: 4.9 E/E' med: 8.7 MV E/A: 1.4 ____ Ao V2 max: 146.2 cm/sec LV V1 max: 93.5 cm/sec MV dec slope: 490.1 cm/sec2 Ao max P.5 mmHg LV V1 max P.5 mmHg Ao V2 mean: 102.7 cm/sec LV V1 mean P.0 mmHg Ao mean P.8 mmHg LV V1 mean: 65.6 cm/sec Ao V2 VTI: 32.8 cm LV V1 VTI: 21.7 cm AV (velocity ratio): 0.66 __ PA V2 max: 119.3 cm/sec TR max fracisco: 247.2 cm/sec PA V2 mean: 87.2 cm/sec TR max P.4 mmHg ECHO/Echo Complete Interpretation Summary Normal LV size. Left ventricular systolic function is normal. The estimated ejection fraction is 60 %. The left atrium is mildly enlarged. __ Ordering Physician: Luis Carter Chi Referring Physician: Luis Carter Chi Performed By: Kamila Mitchell RDCS 09/10/24 1558 Date _ George Mann MD CC: Dr. Luis Carter MD ~ Date Dictated: 09/10/24 1412 Date Transcribed: 09/10/24 0284 Medical Technologist Chemistry: Signed [facility] Work Phone: Hemoglobin A1con 08-18-2024 HbA1c (Bld) [Mass fraction] 6.1 % Normal <=5.6 [facility] Comment on above: Order Comment: ADD O N FROM 08/17/24 H209 Performed By: #### L 100.0100, L501.9985, L500.4050 ####[facility] [id number] [place], [address] Absolute lymphocyte countOrd ered By: Luis Carter on 08-17-2024 Lymphocytes Auto (Unsp spec) [#/Vol] 1.42 10*3/uL 0.83-4.51 [facility] Absolute neutrophil countOrd ered By: Luis Carter on 08-17-2024 Neutrophils (Bld) [#/Vol] 3.9 10*3/uL 2.0-7.7 [facility] Anion gap in Serum or Plasma Ordered By: Luis Carter on 08-17-2024 Anion gap [Moles/Vol] 12 mmol/L 5-15 [facility] Automated lymphocyte count a s percentage of total leukocytesOrdered By: Luis Carter on 08-17-2024 Lymphocytes/100 WBC Auto (Unsp spec) 21.9 % 19-41 [facility] BUN/creatinine ratioOrdered By: Luis Carter on 08-17-2024 Urea nitrogen/Creatinine [Mass ratio] 18.6 mg/mg 10-20 [facility] Basophil percentageOrdered B y: Luis Carter on 08-17-2024 Basophils/100 WBC (Bld) 0.9 % 0-1 [facility] Bilirubin, totalOrdered By: Luis Carter on 08-17-2024 Bilirubin [Mass/Vol] 0.43 mg/dL 0.00-1.30 [facility] CBC W/Diff, Automatedon 03- Absolute Lymph 1.42 X10 3/uL Normal 0.83-4.51 [facility] Comment on above: Performed By: #### L 100.0100, L501.9985, L500.4050 #### [facility] [address] [place], [address] Absolute Neut 3.9 X10 3/uL Normal 2.0-7.7 [facility] [place] Comment on above: Performed By: #### L 100.0100, L501.9985, L500.4050 #### [facility] [address] [place], [address] Basophils/100 WBC (Bld) 0.9 % Normal 0-1 [facility] Comment on above: Performed By: #### L 100.0100, L501.9985, L500.4050 #### [facility] [address] [place], [address] Eosinophils/100 WBC (Bld) 9.2 % High 0-5 [facility] Comment on above: Performed By: #### L 100.0100, L501.9985, L500.4050 #### [facility] [address] [place], [address] Erythrocyte distribution width (RBC) [Ratio] 13.0 % Normal 11.6-14.6 [facility] Comment on above: Performed By: #### L 100.0100, L501.9985, L500.4050 #### [facility] [address] [place], [address] Hematocrit (Bld) [Volume fraction] 43.3 % Normal 40-54 [facility] Comment on above: Performed By: #### L 100.0100, L501.9985, L500.4050 #### [facility] [address] [place], [address] Hemoglobin (Bld) [Mass/Vol] 14.5 g/dL Normal 13.0-16.5 [facility] Comment on above: Performed By: #### L 100.0100, L501.9985, L500.4050 #### [facility] [address] [place], [address] IG% 0.200 Normal 0.0-0.9 [facility] Comment on above: Result Comment: IG% - Immature Granulocytes (promyelocytes, myelocytes and metamyelocytes) > 1% indicates that a LEFT SHIFT is Present. Performed By: #### L 100.0100, L501.9985, L500.4050 #### [facility] [address] [place], [address] Lymphocytes/100 WBC (Bld) 21.9 % Normal 19-41 [facility] Comment on above: Performed By: #### L 100.0100, L501.9985, L500.4050 #### [facility] [address] [place], [address] MCH (RBC) [Entitic mass] 30.9 pg Normal 27.0-32.0 [facility] Comment on above: Performed By: #### L 100.0100, L501.9985, L500.4050 #### [facility] [address] [place], [address] MCHC (RBC) [Mass/Vol] 33.5 g/dL Normal 32-36 [facility] Comment on above: Performed By: #### L 100.0100, L501.9985, L500.4050 #### [facility] [address] [place], [address] MCV (RBC) [Entitic vol] 92.3 fL Normal 80-94 [facility] Comment on above: Performed By: #### L 100.0100, L501.9985, L500.4050 #### [facility] [address] [place], [address] Monocytes/100 WBC (Bld) 7.2 % Normal 0-10 [facility] Comment on above: Performed By: #### L 100.0100, L501.9985, L500.4050 #### [facility] [address] [place], [address] Neutrophils/100 WBC (Bld) 60.6 % Normal 47-70 [facility] Comment on above: Performed By: #### L 100.0100, L501.9985, L500.4050 #### [facility] [address] [place], [address] Nucleated RBC (Bld) [#/Vol] 0 10*3/uL Normal 0-5 [facility] Comment on above: Performed By: #### L 100.0100, L501.9985, L500.4050 #### [facility] [address] [place], [address] Platelet mean volume (Bld) [Entitic vol] 8.9 fL Normal 6.2-12.0 [facility] Comment on above: Performed By: #### L 100.0100, L501.9985, L500.4050 #### [facility] [address] [place], [address] Platelets (Bld) [#/Vol] 305 10*3/uL Normal 150-450 [facility] Comment on above: Performed By: #### L 100.0100, L501.9985, L500.4050 #### [facility] [address] [place], [address] RBC (Bld) [#/Vol] 4.69 10*6/uL Normal 4.6-6.2 [facility] Comment on above: Performed By: #### L 100.0100, L501.9985, L500.4050 #### [facility] [address] [place], [address] RDW SD 43.9 fl Normal 35.1-43.9 [facility] Comment on above: Performed By: #### L 100.0100, L501.9985, L500.4050 #### [facility] [address] [place], [address] WBC (Bld) [#/Vol] 6.5 10*3/uL Normal 4.4-11.0 [facility] Comment on above: Performed By: #### L 100.0100, L501.9985, L500.4050 #### [facility] [address] [place], [address] Carbon dioxide, total [Moles /volume] in Central venous bloodOrdered By: Luis Carter on 08-17-2024 CO2 [Moles/Vol] 25.8 mmol/L 21.0-32.0 [facility] Chloride assayOrdered By: Nadeem Carter on 08-17-2024 Chloride [Moles/Vol] 100 mmol/L 98-108 [facility] Comprehensive Metabolic Prof ilon 08-17-2024 Albumin [Mass/Vol] 4.5 g/dL Normal 3.5-5.0 [facility] Comment on above: Performed By: #### L 100.0100, L501.9985, L500.4050 #### [facility] [address] [place], [address] Albumin/Globulin [Mass ratio] 1.3 {ratio} Normal 0.9-2.4 [facility] Comment on above: Performed By: #### L 100.0100, L501.9985, L500.4050 #### [facility] [address] [place], [address] ALK PHOS 59 U/L Normal 40-129 [facility] Comment on above: Performed By: #### L 100.0100, L501.9985, L500.4050 #### [facility] [address] [place], [address] ALT [Catalytic activity/Vol] 24 U/L Normal <=46 [facility] Comment on above: Performed By: #### L 100.0100, L501.9985, L500.4050 #### [facility] [address] [place], [address] AST [Catalytic activity/Vol] 23 U/L Normal <=37 [facility] Comment on above: Performed By: #### L 100.0100, L501.9985, L500.4050 #### [facility] [address] [place], [address] Bilirubin [Mass/Vol] 0.43 mg/dL Normal 0.00-1.30 [facility] Comment on above: Performed By: #### L 100.0100, L501.9985, L500.4050 #### [facility] [address] [place], [address] BUN/CRE 18.6 RATIO Normal 10-20 [facility] Comment on above: Performed By: #### L 100.0100, L501.9985, L500.4050 #### [facility] [address] [place], [address] Calcium [Mass/Vol] 9.6 mg/dL Normal 7.6-11.0 [facility] Comment on above: Performed By: #### L 100.0100, L501.9985, L500.4050 #### [facility] [address] [place], [address] Chloride [Moles/Vol] 100 mmol/L Normal 98-108 [facility] Comment on above: Performed By: #### L 100.0100, L501.9985, L500.4050 #### [facility] [address] [place], [address] CO2 [Moles/Vol] 25.8 mmol/L Normal 21.0-32.0 [facility] Comment on above: Performed By: #### L 100.0100, L501.9985, L500.4050 #### [facility] [address] [place], [address] Creatinine [Mass/Vol] 0.97 mg/dL Normal 0.70-1.20 [facility] Comment on above: Performed By: #### L 100.0100, L501.9985, L500.4050 #### [facility] [address] [place], [address] GAP 12 Normal 5-15 [facility] Comment on above: Performed By: #### L 100.0100, L501.9985, L500.4050 #### [facility] [address] [place], [address] GFR/1.73 sq M.predicted among non-blacks MDRD (S/P/Bld) [Vol rate/Area] 89 mL/min/{1.73_m2} Normal >60 [facility] Comment on above: Result Comment: mL/m in/1.73m2 CKD-EPI Creatinine Equation (2020) Performed By: #### L 100.0100, L501.9985, L500.4050 #### [facility] [address] [place], [address] Globulin (S) [Mass/Vol] 3.3 g/dL Normal 2.2-4.2 [facility] Comment on above: Performed By: #### L 100.0100, L501.9985, L500.4050 #### [facility] [address] [place], [address] Glucose [Mass/Vol] 157 mg/dL High 70-99 [facility] Comment on above: Performed By: #### L 100.0100, L501.9985, L500.4050 #### [facility] [address] [place], [address] Potassium [Moles/Vol] 4.3 mmol/L Normal 3.3-5.1 [facility] Comment on above: Result Comment: Hemo lysis present, Results??could be affected. ?? Performed By: #### L 100.0100, L501.9985, L500.4050 #### [facility] [address] [place], [address] Sodium [Moles/Vol] 138 mmol/L Normal 133-145 [facility] Comment on above: Performed By: #### L 100.0100, L501.9985, L500.4050 #### [facility] [address] [place], [address] T PROT 7.8 g/dL Normal 5.9-8.4 [facility] Comment on above: Performed By: #### L 100.0100, L501.9985, L500.4050 #### [facility] [address] [place], [address] Urea nitrogen [Mass/Vol] 18 mg/dL Normal 4-19 [facility] Comment on above: Performed By: #### L 100.0100, L501.9985, L500.4050 #### [facility] [address] [place], [address] Eosinophil percentageOrdered By: Luis Carter on 08-17-2024 Eosinophils/100 WBC (Bld) 9.2 % High 0-5 [facility] Erythrocyte distribution wid th ratioOrdered By: Luis Carter on 08-17-2024 Erythrocyte distribution width (RBC) [Ratio] 13.0 % 11.6-14.6 [facility] Erythrocyte distribution wid th standard deviationOrdered By: Luis Carter on 08-17-2024 Erythrocyte distribution width (RBC) [Entitic vol] 43.9 fL 35.1-43.9 [facility] Erythrocyte distribution width (RBC) [Ratio] 43.9 fl 35.1-43.9 [facility] GFR/1.73 sq M.predicted nory g non-blacks MDRD (S/P/Bld) [Vol rate/Area]Ordered By: Luis Carter on 08-17-2024 Estimated GFR (MDRD) Non-Af Amer 89 >60 [facility] Comment on above: mL/min/1.73m2 CKD-EP I Creatinine Equation (2020) Glomerular filtration rate ( GFR) estimation/1.73 sq m using serum, plasma, or whole bOrdered By: Luis Carter on 08-17-2024 GFR/1.73 sq M.predicted among non-blacks MDRD (S/P/Bld) [Vol rate/Area] 89 mL/min/{1.73_m2} >60 [facility] Comment on above: mL/min/1.73m2 CKD-EP I Creatinine Equation (2020) Hematocrit Auto (Bld) [Volum e fraction]Ordered By: Luis Carter 08-17-2024 Hematocrit (Bld) [Volume fraction] 43.3 % 40-54 [facility] Hemoglobin A1c percentageOrd ered By: Luis Carter 08-17-2024 HbA1c (Bld) [Mass fraction] 6.1 % >5.7 [facility] Hemoglobin measurementOrdere d By: Luis Carter 08-17-2024 Hemoglobin (Bld) [Mass/Vol] 14.5 g/dL 13.0-16.5 [facility] Immature granulocytes/100 WB C Auto (Bld)Ordered By: Luis Carter 08-17-2024 Immature granulocytes/100 WBC (Bld) 0.200 % 0.0-0.9 [facility] Comment on above: IG% - Immature Granu locytes (promyelocytes, myelocytes and metamyelocytes) > 1% indicates that a LEFT SHIFT is Present. Laboratory - Chemistry and C hemistry - challengeOrdered By: Luis Carter 08-17-2024 AST [Catalytic activity/Vol] 23 U/L <38 [facility] Lymphocytes Auto (Unsp spec) [#/Vol]Ordered By: Luis Carter 08-17-2024 Lymphocytes (Bld) [#/Vol] 1.42 10*3/uL 0.83-4.5 1 [facility] Lymphocytes/100 WBC Auto (Un sp spec)Ordered By: Luis Carter on 08-17-2024 Lymphocytes/100 WBC (Bld) 21.9 % 19-41 [facility] MCV (mean corpuscular volume ) determinationOrdered By: Luis Carter on 08-17-2024 MCV (RBC) [Entitic vol] 92.3 fL 80-94 [facility] Mean corpuscular hemoglobin (MCH) determinationOrdered By: Luis Carter on 08-17-2024 MCH (RBC) [Entitic mass] 30.9 pg 27.0-32.0 [facility] Mean corpuscular hemoglobin concentration (MCHC) determinationOrdered By: Luis Carter on 08-17-2024 MCHC (RBC) [Mass/Vol] 33.5 g/dL 32-36 [facility] Mean platelet volume determi nationOrdered By: Luis Carter on 08-17-2024 Platelet mean volume (Bld) [Entitic vol] 8.9 fL 6.2-12.0 [facility] Monocyte percentageOrdered B y: Luis Carter on 08-17-2024 Monocytes/100 WBC (Bld) 7.2 % 0-10 [facility] Neutrophil percentageOrdered By: Luis Carter on 08-17-2024 Neutrophils/100 WBC (Bld) 60.6 % 47-70 [facility] Nucleated red blood cell per centageOrdered By: Luis Carter on 08-17-2024 Nucleated RBC/100 WBC (Bld) [Ratio] 0 % 0-5 [facility] Platelet countOrdered By: Nadeem Carter on 08-17-2024 Platelets (Bld) [#/Vol] 305 10*3/uL 150-450 [facility] Potassium (Unsp spec) [Mass/ Vol]Ordered By: Luis Carter on 08-17-2024 Potassium [Moles/Vol] 4.3 mmol/L 3.3-5.1 [facility] Comment on above: Hemolysis present, R esults could be affected. Potassium measurement (mass/ volume)Ordered By: Luis Carter on 08-17-2024 Potassium (Unsp spec) [Mass/Vol] 4.3 mmol/L 3.3-5.1 [facility] Comment on above: Hemolysis present, R esults could be affected. RBC Auto (Bld) [#/Vol]Ordere d By: Luis Carter on 08-17-2024 RBC (Bld) [#/Vol] 4.69 10*6/uL 4.6-6.2 [facility] Serum creatinine measurement (mass/volume)Ordered By: Luis Carter on 08-17-2024 Creatinine [Mass/Vol] 0.97 mg/dL 0.70-1.20 [facility] Serum globulin measurementOr dered By: Luis Carter on 08-17-2024 Globulin (S) [Mass/Vol] 3.3 g/dL 2.2-4.2 [facility] Serum glucose measurement (m ass/volume)Ordered By: Luis Carter on 08-17-2024 Glucose [Mass/Vol] 157 mg/dL High 70-99 [facility] Serum or plasma alanine sexton otransferase (ALT) measurementOrdered By: Luis Carter on 08-17-2024 ALT [Catalytic activity/Vol] 24 U/L <47 [facility] Serum or plasma albumin nima urement (mass/volume)Ordered By: Luis Carter 08-17-2024 Albumin [Mass/Vol] 4.5 g/dL 3.5-5.0 [facility] Serum or plasma albumin/glob ulin mass ratioOrdered By: Luis Carter 08-17-2024 Albumin/Globulin [Mass ratio] 1.3 {ratio} 0.9-2.4 [facility] Serum or plasma alkaline kamini sphatase measurementOrdered By: Luis Carter 08-17-2024 ALP [Catalytic activity/Vol] 59 U/L 40-129 [facility] Serum or plasma calcium nima urement (mass/volume)Ordered By: Luis Carter 08-17-2024 Calcium [Mass/Vol] 9.6 mg/dL 7.6-11.0 [facility] Serum or plasma urea nitroge n measurement (mass/volume)Ordered By: Luis Carter 08-17-2024 Urea nitrogen [Mass/Vol] 18 mg/dL 4-19 [facility] Sodium levelOrdered By: Luis Carter on 08-17-2024 Sodium [Moles/Vol] 138 mmol/L 133-145 [facility] Total proteinOrdered By: Luis Carter on 08-17-2024 Protein [Mass/Vol] 7.8 g/dL 5.9-8.4 [facility] White blood cell (WBC) count Ordered By: Luis Carter on 08-17-2024 WBC (Bld) [#/Vol] 6.5 10*3/uL 4.4-11.0 [facility] CBC W/Diff, Automatedon 01-08 Absolute Lymph 1.37 X10 3/uL Normal 0.83-4.51 [facility] Comment on above: Performed By: #### L 500.4050, L100.0100, L500.4100, L501.9910, L501.9520 #### [facility] [address] [place], [address] Absolute Neut 3.1 X10 3/uL Normal 2.0-7.7 [facility] Comment on above: Performed By: #### L 500.4050, L100.0100, L500.4100, L501.9910, L501.9520 #### [facility] [address] [place], [address] Basophils/100 WBC (Bld) 0.9 % Normal 0-1 [facility] Comment on above: Performed By: #### L 500.4050, L100.0100, L500.4100, L501.9910, L501.9520 #### [facility] [address] [place], [address] Eosinophils/100 WBC (Bld) 9.2 % High 0-5 [facility] Comment on above: Performed By: #### L 500.4050, L100.0100, L500.4100, L501.9910, L501.9520 #### [facility] [address] [place], [address] Erythrocyte distribution width (RBC) [Ratio] 12.3 % Normal 11.6-14.6 [facility] Comment on above: Performed By: #### L 500.4050, L100.0100, L500.4100, L501.9910, L501.9520 #### [facility] [address] [place], [address] Hematocrit (Bld) [Volume fraction] 43.9 % Normal 40-54 [facility] Comment on above: Performed By: #### L 500.4050, L100.0100, L500.4100, L501.9910, L501.9520 #### [facility] [address] [place], [address] Hemoglobin (Bld) [Mass/Vol] 14.4 g/dL Normal 13.0-16.5 [facility] Comment on above: Performed By: #### L 500.4050, L100.0100, L500.4100, L501.9910, L501.9520 #### [facility] [address] [place], [address] IG% 0.200 Normal 0.0-0.9 [facility] Comment on above: Result Comment: IG% - Immature Granulocytes (promyelocytes, myelocytes and metamyelocytes) > 1% indicates that a LEFT SHIFT is Present. Performed By: #### L 500.4050, L100.0100, L500.4100, L501.9910, L501.9520 #### [facility] [address] [place], [address] Lymphocytes/100 WBC (Bld) 24.7 % Normal 19-41 [facility] Comment on above: Performed By: #### L 500.4050, L100.0100, L500.4100, L501.9910, L501.9520 #### [facility] [address] [place], [address] MCH (RBC) [Entitic mass] 30.3 pg Normal 27.0-32.0 [facility] Comment on above: Performed By: #### L 500.4050, L100.0100, L500.4100, L501.9910, L501.9520 #### [facility] [address] [place], [address] MCHC (RBC) [Mass/Vol] 32.8 g/dL Normal 32-36 [facility] Comment on above: Performed By: #### L 500.4050, L100.0100, L500.4100, L501.9910, L501.9520 #### [facility] [address] [place], [address] MCV (RBC) [Entitic vol] 92.4 fL Normal 80-94 [facility] Comment on above: Performed By: #### L 500.4050, L100.0100, L500.4100, L501.9910, L501.9520 #### [facility] [address] [place], [address] Monocytes/100 WBC (Bld) 9.5 % Normal 0-10 [facility] Comment on above: Performed By: #### L 500.4050, L100.0100, L500.4100, L501.9910, L501.9520 #### [facility] [address] [place], [address] Neutrophils/100 WBC (Bld) 55.5 % Normal 47-70 [facility] Comment on above: Performed By: #### L 500.4050, L100.0100, L500.4100, L501.9910, L501.9520 #### [facility] [address] [place], [address] Nucleated RBC (Bld) [#/Vol] 0 10*3/uL Normal 0-5 [facility] Comment on above: Performed By: #### L 500.4050, L100.0100, L500.4100, L501.9910, L501.9520 #### [facility] [address] [place], [address] Platelet mean volume (Bld) [Entitic vol] 8.5 fL Normal 6.2-12.0 [facility] Comment on above: Performed By: #### L 500.4050, L100.0100, L500.4100, L501.9910, L501.9520 #### [facility] [address] [place], [address] Platelets (Bld) [#/Vol] 300 10*3/uL Normal 150-450 [facility] Comment on above: Performed By: #### L 500.4050, L100.0100, L500.4100, L501.9910, L501.9520 #### [facility] [address] [place], [address] RBC (Bld) [#/Vol] 4.75 10*6/uL Normal 4.6-6.2 [facility] Comment on above: Performed By: #### L 500.4050, L100.0100, L500.4100, L501.9910, L501.9520 #### [facility] [address] [place], [address] RDW SD 42.0 fl Normal 35.1-43.9 [facility] Comment on above: Performed By: #### L 500.4050, L100.0100, L500.4100, L501.9910, L501.9520 #### [facility] [address] [place], [address] WBC (Bld) [#/Vol] 5.6 10*3/uL Normal 4.4-11.0 [facility] Comment on above: Performed By: #### L 500.4050, L100.0100, L500.4100, L501.9910, L501.9520 #### [facility] [address] [place], [address] Comprehensive Metabolic Prof ilon 02-02-2024 Albumin [Mass/Vol] 3.7 g/dL Normal 3.2-5.0 [facility] Comment on above: Performed By: #### L 500.4050, L100.0100, L500.4100, L501.9910, L501.9520 #### [facility] [address] [place], [address] Albumin/Globulin [Mass ratio] 0.9 {ratio} Normal 0.9-2.4 [facility] Comment on above: Performed By: #### L 500.4050, L100.0100, L500.4100, L501.9910, L501.9520 #### [facility] [address] [place], [address] ALK P 54 U/L Normal 45-117 [facility] Comment on above: Performed By: #### L 500.4050, L100.0100, L500.4100, L501.9910, L501.9520 #### [facility] [address] [place], [address] ALT [Catalytic activity/Vol] 31 U/L Normal 16-61 [facility] Comment on above: Performed By: #### L 500.4050, L100.0100, L500.4100, L501.9910, L501.9520 #### [facility] [address] [place], [address] AST [Catalytic activity/Vol] 22 U/L Normal 15-37 [facility] Comment on above: Performed By: #### L 500.4050, L100.0100, L500.4100, L501.9910, L501.9520 #### [facility] [address] [place], [address] Bilirubin [Mass/Vol] 0.40 mg/dL Normal 0.20-1.00 [facility] Comment on above: Result Comment: For patients on eltrombopag therapy, use of Dimension [place] TBIL is not recommended. Performed By: #### L 500.4050, L100.0100, L500.4100, L501.9910, L501.9520 #### [facility] [address] [place], [address] BUN/CRE 15.3 RATIO Normal 10-20 [facility] Comment on above: Performed By: #### L 500.4050, L100.0100, L500.4100, L501.9910, L501.9520 #### [facility] [address] [place], [address] CA,Total 9.2 mg/dL Normal 8.5-10.1 [facility] Comment on above: Performed By: #### L 500.4050, L100.0100, L500.4100, L501.9910, L501.9520 #### [facility] [address] [place], [address] Chloride [Moles/Vol] 104 mmol/L Normal 98-107 [facility] Comment on above: Performed By: #### L 500.4050, L100.0100, L500.4100, L501.9910, L501.9520 #### [facility] [address] [place], [address] CO2 [Moles/Vol] 30.0 mmol/L Normal 21.0-32.0 [facility] Comment on above: Performed By: #### L 500.4050, L100.0100, L500.4100, L501.9910, L501.9520 #### [facility] [address] [place], [address] Creatinine [Mass/Vol] 1.11 mg/dL Normal 0.70-1.30 [facility] Comment on above: Result Comment: The validity of the calculated GFR GFRAA in patients over 70 years has not been determined. Clinical correlation is essential. Performed By: #### L 500.4050, L100.0100, L500.4100, L501.9910, L501.9520 #### [facility] [address] [place], [address] EST GFR - AA 87 mL/min Normal >60 [facility] Comment on above: Result Comment: Afri can [place] GFR Calc Performed By: #### L 500.4050, L100.0100, L500.4100, L501.9910, L501.9520 #### [facility] [address] [place], [address] GAP 4 Low 5-15 [facility] Comment on above: Performed By: #### L 500.4050, L100.0100, L500.4100, L501.9910, L501.9520 #### [facility] [address] [place], [address] GFR/1.73 sq M.predicted among non-blacks MDRD (S/P/Bld) [Vol rate/Area] 72 mL/min/{1.73_m2} Normal >60 [facility] Comment on above: Result Comment: Non- GFR Calc Performed By: #### L 500.4050, L100.0100, L500.4100, L501.9910, L501.9520 #### [facility] [address] [place], [address] Globulin (S) [Mass/Vol] 4.1 g/dL Normal 2.2-4.2 [facility] Comment on above: Performed By: #### L 500.4050, L100.0100, L500.4100, L501.9910, L501.9520 #### [facility] [address] [place], [address] Glucose [Mass/Vol] 122 mg/dL High 74-106 [facility] Comment on above: Result Comment: Fast ing Glucose result from 100 to 125 mg/dL suggests IMPAIRED HOMEOSTASIS per A.D.A. criteria. Performed By: #### L 500.4050, L100.0100, L500.4100, L501.9910, L501.9520 #### [facility] [address] [place], [address] Potassium [Moles/Vol] 4.8 mmol/L Normal 3.5-5.1 [facility] Comment on above: Performed By: #### L 500.4050, L100.0100, L500.4100, L501.9910, L501.9520 #### [facility] [address] [place], [address] Sodium [Moles/Vol] 138 mmol/L Normal 136-145 [facility] Comment on above: Performed By: #### L 500.4050, L100.0100, L500.4100, L501.9910, L501.9520 #### [facility] [address] [place], [address] T PROT 7.8 g/dL Normal 6.4-8.2 [facility] Comment on above: Performed By: #### L 500.4050, L100.0100, L500.4100, L501.9910, L501.9520 #### [facility] [address] [place], [address] Urea nitrogen [Mass/Vol] 17 mg/dL Normal 7-18 [facility] Comment on above: Performed By: #### L 500.4050, L100.0100, L500.4100, L501.9910, L501.9520 #### [facility] [address] [place], [address] Lipid Profileon 02-02-2024 Cholesterol [Mass/Vol] 263 mg/dL High 200 [facility] Comment on above: Result Comment: <200 mg/dL Desirable 200-240 mg/dL Borderline >240 mg/dL High Risk Performed By: #### L 500.4050, L100.0100, L500.4100, L501.9910, L501.9520 #### [facility] [address] [place], [address] Cholesterol in HDL [Mass/Vol] 56 mg/dL Normal [facility] Comment on above: Result Comment: The drugs N-Acetylcysteine and Metamizole may falsely depress this assay. Reference Range HDL <40 mg/dL Low HDL Cholesterol HDL >or= 60 mg/dL High HDL Cholesterol Performed By: #### L 500.4050, L100.0100, L500.4100, L501.9910, L501.9520 #### [facility] [address] [place], [address] Cholesterol in LDL [Mass/Vol] 184 mg/dL High 0-130 [facility] Comment on above: Performed By: #### L 500.4050, L100.0100, L500.4100, L501.9910, L501.9520 #### [facility] [address] [place], [address] Cholesterol in VLDL [Mass/Vol] 23 mg/dL Normal 5-40 [facility] Comment on above: Performed By: #### L 500.4050, L100.0100, L500.4100, L501.9910, L501.9520 #### [facility] [address] [place], [address] Triglyceride [Mass/Vol] 115 mg/dL Normal [facility] Comment on above: Result Comment: The drugs N-Acetylcysteine and Metamizole may falsely depress this assay. Serum Triglycerides Reference Interval Normal <150 mg/dL Borderline high 150 - 199 mg/dL High 200 - 499 mg/dL Very High > or = 500 mg/dL Performed By: #### L 500.4050, L100.0100, L500.4100, L501.9910, L501.9520 #### [facility] [address] [place], [place], [id number] PSA,Total - Annual Screenon 02-02-2024 PSA,TOT SCREEN 1.22 ng/mL Normal 0.00-4.00 [facility] Comment on above: Result Comment: This test was performed using the TPSA assay method for the [employer] chemistry system. Values obtained with different assay methods cannot be used interchangably. When changing PSA assays in the course of monitoring a patient, additional sequential testing should be carried out to confirm baseline values. Performed By: #### L 500.4050, L100.0100, L500.4100, L501.9910, L501.9520 #### [facility] [address] [place], [place], [id number] Thyroid Stim Hormone (TSH)on 02-02-2024 TSH 1.720 uIU/mL Normal 0.358-3.740 [facility] Comment on above: Performed By: #### L 500.4050, L100.0100, L500.4100, L501.9910, L501.9520 #### [facility] [address] [place], [place], [address] Absolute lymphocyte countOrd ered By: Luis Carter on 01-27-2023 Lymphocytes Auto (Unsp spec) [#/Vol] 1.12 10*3/uL 0.83-4.51 [facility] Basophil percentageOrdered B y: Luis Carter on 01-27-2023 Basophils/100 WBC (Bld) 0.5 % 0-1 [facility] Bilirubin [Mass/Vol] 0.60 mg/dL 0.20-1.00 [facility] Comment on above: For patients on eltr ombopag therapy, use of Dimension [place] TBIL is not recommended. Chloride [Moles/Vol] 103 mmol/L 98-107 [facility] Eosinophils/100 WBC (Bld) 5.4 % 0-5 [facility] Glucose [Mass/Vol] 121 mg/dL 74-106 [facility] Comment on above: Fasting Glucose resu lt from 100 to 125 mg/dL suggests IMPAIRED HOMEOSTASIS per A.D.A. criteria. Neutrophils (Bld) [#/Vol] 4.1 10*3/uL 2.0-7.7 [facility] Neutrophils/100 WBC (Bld) 64.7 % 47-70 [facility] Potassium [Moles/Vol] 4.0 mmol/L 3.5-5.1 [facility] Protein [Mass/Vol] 7.6 g/dL 6.4-8.2 [facility] Sodium [Moles/Vol] 136 mmol/L 136-145 [facility] WBC (Bld) [#/Vol] 6.3 10*3/uL 4.4-11.0 [facility] Blood erythrocytes count (nu mber/volume)Ordered By: Luis Carter on 01-27-2023 RBC (Bld) [#/Vol] 4.68 10*6/uL 4.6-6.2 [facility] Blood hemoglobin measurement (mass/volume)Ordered By: Luis Carter on 01-27-2023 Hemoglobin (Bld) [Mass/Vol] 14.2 g/dL 13.0-16.5 [facility] Blood lymphocytes/100 leukoc ytesOrdered By: Luis Carter on 01-27-2023 Lymphocytes/100 WBC (Bld) 17.9 % 19-41 [facility] Blood monocytes/100 leukocyt esOrdered By: Luis Carter on 01-27-2023 Monocytes/100 WBC (Bld) 11.3 % 0-10 [facility] Blood platelet mean volumeOr dered By: Luis Carter on 01-27-2023 Platelet mean volume (Bld) [Entitic vol] 8.9 fL 6.2-12.0 [facility] Determination of erythrocyte mean corpuscular volume (MCV)Ordered By: Luis Cartre on 01-27-2023 MCV (RBC) [Entitic vol] 91.7 fL 80-94 [facility] Hematocrit Auto (Bld) [Volum e fraction]Ordered By: Luis Carter on 01-27-2023 Hematocrit (Bld) [Volume fraction] 42.9 % 40-54 [facility] - Chemistry and C hemistry - challengeOrdered By: Luis Carter on 01-27-2023 ALP [Catalytic activity/Vol] 61 U/L 45-117 [facility] ALT [Catalytic activity/Vol] 36 U/L 16-61 [facility] CO2 [Moles/Vol] 30.0 mmol/L 21.0-32.0 [facility] Globulin (S) [Mass/Vol] 3.9 g/dL 2.2-4.2 [facility] Urea nitrogen/Creatinine [Mass ratio] 16.5 mg/mg 10-20 [facility] - Hematology and Cell countsOrdered By: Luis Carter on 01-27-2023 Erythrocyte distribution width (RBC) [Entitic vol] 41.9 fL 35.1-43.9 [facility] Erythrocyte distribution width (RBC) [Ratio] 12.6 % 11.6-14.6 [facility] Immature granulocytes/100 WBC (Bld) 0.200 % 0.0-0.9 [facility] Comment on above: IG% - Immature Granu locytes (promyelocytes, myelocytes and metamyelocytes) > 1% indicates that a LEFT SHIFT is Present. MCH (RBC) [Entitic mass] 30.3 pg 27.0-32.0 [facility] Nucleated RBC/100 WBC (Bld) [Ratio] 0 % 0-5 [facility] MCHC Auto (RBC) [Mass/Vol]Or dered By: Luis Carter on 01-27-2023 MCHC (RBC) [Mass/Vol] 33.1 g/dL 32-36 [facility] No Panel InformationOrdered By: Luis Carter on 01-27-2023 Estimated GFR (MDRD) Amer 95 mL/min >60 [facility] Comment on above: GFR Calc Estimated GFR (MDRD) Non-Af Amer 79 mL/min >60 [facility] Comment on above: Non- GFR Calc Prostate Specific Antigen Screen 1.03 ng/mL 0.00-4.00 [facility] Comment on above: This test was perfor med using the TPSA assay method for [employer] chemistry system. Values obtained with differentassay methods cannot be used interchangably.When changing PSA assays in the course of monitoring apatient, additional sequential testing should be carriedout to confirm baseline values. Thyroid Stimulating Hormone (TSH) 1.20 uIU/mL 0.358-3.74 [facility] Platelets bldOrdered By: Luis Carter on 01-27-2023 Platelets (Bld) [#/Vol] 302 10*3/uL 150-450 [facility] Serum or plasma albumin nima urement (mass/volume)Ordered By: Luis Carter on 01-27-2023 Albumin [Mass/Vol] 3.7 g/dL 3.2-5.0 [facility] Serum or plasma albumin/glob ulin mass ratioOrdered By: Luis Carter 01-27-2023 Albumin/Globulin [Mass ratio] 0.9 {ratio} 0.9-2.4 [facility] Serum or plasma calcium nima urement (mass/volume)Ordered By: Luis Carter 01-27-2023 Calcium [Mass/Vol] 8.9 mg/dL 8.5-10.1 [facility] Serum or plasma creatinine m easurement (mass/volume)Ordered By: Luis Carter 01-27-2023 Creatinine [Mass/Vol] 1.03 mg/dL 0.70-1.30 [facility] Comment on above: The validity of the calculated GFR & GFRAA in patients over 70 years has not been determined. Clinical correlation is essential. Serum or plasma urea nitroge n measurement (mass/volume)Ordered By: Luis Carter on 01-27-2023 Urea nitrogen [Mass/Vol] 17 mg/dL 7-18 [facility] Thin prep Papanicolaou smear with manual screeningOrdered By: Luis Carter 01-27-2023 Thin prep Papanicolaou smear with manual screening 21 U/L 15-37 [facility] Thin prep Papanicolaou smear with manual screening 3 5-15 [facility] CNPNon 11-27-2022 CNPN Telephone (INTMWS) ---- DEMETRIUS PENA ([id number]) 1965 M Date Time Provider Department 11/27/22 RODOLFO GUERRERO During your visit today, we recorded the following information about you: Skylar Sal 11/27/2022 9:57 AM Signed Pts called to see if pt could be added as a pt. She is a pt and spoke with Dr. Guerrero. Please advise if pt can be established. Rodolfo Guerrero MD 11/27/2022 12:53 PM Signed Okay. Schedule in 1-2 months. Request records. Danielle Hernandez LPN 11/27/2022 4:25 PM Signed Message left to pt with info and requested return call to arrange appt. Maddison Gale RN 11/27/2022 4:38 PM Signed Pt called and is notified of providers message and instructions. Pt voices understanding, states his elbow is hurting so he will have to see other provider. Pt will call back to schedule with Dr Valentine. FAY Maria LPN 12/18/2022 9:02 AM Signed Message left to pt if still having elbow issues Dr. Guerrero can review sooner than one or two months. Dr. Guerrero could see him this week or next if needed. Allergies As of Date: 11/27/[address]-scan dye [Other] 11/01/2005 4 - Hives Date Reviewed: 10/08/2021 Reviewed by: Matilde Iraheta LPN - Fully Assessed Reason for Visit: Patient Question [6087] Prescriptions as of 12/18/2022 - gabapentin (NEURONTIN) 300 mg capsule Take 300 mg by mouth once daily. - diclofenac, EC, (VOLTAREN) 75 mg EC tablet Take 75 mg by mouth once daily. - metaxalone (SKELAXIN) 800 mg tablet Take 800 mg by mouth once daily. Problem List As Of Date: 11/27/2022 (None) Encounter Status:Closed by MADDISON GALE on 11/27/22 Normal [facility] CNNURSEon 06-28-2022 CNNURSE Nurse Visit (PODIWS) ---- DEMETRIUS PENA ([id number]) 1965 M Date Time Provider Department 06/28/22 2:00 PM NURSE/[facility] PODIWS During your visit today, we recorded the following information about you: Carri Hunt LPN 06/28/2022 2:19 PM Signed Per Demetrius Wilde was provided with powerstep original inserts, size 9, and instructed/educated in its application, wear, and care. All questions were answered, and patient was able to demonstrate competence with the necessary skills to utilize the above equipment. 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 - diclofenac, EC, (VOLTAREN) 75 mg EC tablet Take 75 mg by mouth once daily. - metaxalone (SKELAXIN) 800 mg tablet Take 800 mg by mouth once daily. Problem List As Of Date: 06/28/2022 (None) Encounter Status:Closed by CARRI HUNT on 06/28/22 Normal [facility] Absolute lymphocyte counton 01-24-2022 Lymphocytes Auto (Unsp spec) [#/Vol] 1.21 10*3/uL 0.83-4.51 [facility] Work Phone: Basophil percentageon 2021 Basophils/100 WBC (Bld) 0.7 % 0-1 [facility] Work Phone: [phone] Bilirubin [Mass/Vol] 0.40 mg/dL 0.20-1.00 [facility] Work Phone: Comment on above: For patients on eltr ombopag therapy, use of Dimension [place] TBIL is not recommended. Chloride [Moles/Vol] 103 mmol/L 98-107 [facility] Work Phone: Eosinophils/100 WBC (Bld) 4.3 % 0-5 [facility] Work Phone: [phone] Glucose [Mass/Vol] 89 mg/dL 74-106 [facility] Work Phone: [phone] Neutrophils (Bld) [#/Vol] 3.5 10*3/uL 2.0-7.7 [facility] Work Phone: Neutrophils/100 WBC (Bld) 62.6 % 47-70 [facility] Work Phone: [phone] Potassium [Moles/Vol] 4.5 mmol/L 3.5-5.1 [facility] Work Phone: [phone] Protein [Mass/Vol] 7.4 g/dL 6.4-8.2 [facility] Work Phone: [phone] Sodium [Moles/Vol] 140 mmol/L 136-145 [facility] Work Phone: WBC (Bld) [#/Vol] 5.5 10*3/uL 4.4-11.0 [facility] Work Phone: Blood erythrocytes count (nu mber/volume)on 01-24-2022 RBC (Bld) [#/Vol] 4.48 10*6/uL 4.6-6.2 [facility] Work Phone: [phone] Blood hemoglobin measurement (mass/volume)on 01-24-2022 Hemoglobin (Bld) [Mass/Vol] 14.0 g/dL 13.0-16.5 [facility] Work Phone: Blood lymphocytes/100 leukoc yteson 01-24-2022 Lymphocytes/100 WBC (Bld) 21.9 % 19-41 [facility] Work Phone: Blood monocytes/100 leukocyt eson 01-24-2022 Monocytes/100 WBC (Bld) 10.3 % 0-10 [facility] Work Phone: Blood platelet mean volumeon 01-24-2022 Platelet mean volume (Bld) [Entitic vol] 9.0 fL 6.2-12.0 [facility] Work Phone: Determination of erythrocyte mean corpuscular volume (MCV)on 01-24-2022 MCV (RBC) [Entitic vol] 94.0 fL 80-94 [facility] Work Phone: Hematocrit Auto (Bld) [Volum e fraction]on 01-24-2022 Hematocrit (Bld) [Volume fraction] 42.1 % 40-54 [facility] Work Phone: Laboratory - Chemistry and C hemistry - challengeon 01-24-2022 ALP [Catalytic activity/Vol] 53 U/L 45-117 [facility] Work Phone: ALT [Catalytic activity/Vol] 41 U/L 16-61 [facility] Work Phone: CO2 [Moles/Vol] 32.0 mmol/L 21.0-32.0 [facility] Work Phone: Globulin (S) [Mass/Vol] 3.7 g/dL 2.2-4.2 [facility] Work Phone: Urea nitrogen/Creatinine [Mass ratio] 18.3 mg/mg 10-20 [facility] Work Phone: Laboratory - Hematology and Cell countson 01-24-2022 Erythrocyte distribution width (RBC) [Entitic vol] 41.7 fL 35.1-43.9 [facility] Work Phone: Erythrocyte distribution width (RBC) [Ratio] 12.0 % 11.6-14.6 [facility] Work Phone: Immature granulocytes/100 WBC (Bld) 0.200 % 0.0-0.9 [facility] Work Phone: Comment on above: IG% - Immature Granu locytes (promyelocytes, myelocytes and metamyelocytes) > 1% indicates that a LEFT SHIFT is Present. MCH (RBC) [Entitic mass] 31.3 pg 27.0-32.0 [facility] Work Phone: Nucleated RBC/100 WBC (Bld) [Ratio] 0 % 0-5 [facility] Work Phone: MCHC Auto (RBC) [Mass/Vol]on 01-24-2022 MCHC (RBC) [Mass/Vol] 33.3 g/dL 32-36 [facility] Work Phone: No Panel Informationon 01-24 Estimated GFR (MDRD) Amer 84 mL/min >60 [facility] Work Phone: Comment on above: GFR Calc Estimated GFR (MDRD) Non-Af Amer 70 mL/min >60 [facility] Work Phone: Comment on above: Non- GFR Calc Prostate Specific Antigen Screen 1.30 ng/mL 0.00-4.00 [facility] Work Phone: Comment on above: This test was perfor med using the TPSA assay method for the[employer] chemistry system. Values obtained with differentassay methods cannot be used interchangably.When changing PSA assays in the course of monitoring apatient, additional sequential testing should be carriedout to confirm baseline values. Thyroid Stimulating Hormone (TSH) 1.23 uIU/mL 0.358-3.74 [facility] Work Phone: Platelets bldon 01-24-2022 Platelets (Bld) [#/Vol] 307 10*3/uL 150-450 [facility] Work Phone: Serum or plasma albumin nima urement (mass/volume)on 01-24-2022 Albumin [Mass/Vol] 3.7 g/dL 3.2-5.0 [facility] Work Phone: Serum or plasma albumin/glob ulin mass ratioon 01-24-2022 Albumin/Globulin [Mass ratio] 1.0 {ratio} 0.9-2.4 [facility] Work Phone: Serum or plasma calcium nima urement (mass/volume)on 01-24-2022 Calcium [Mass/Vol] 8.9 mg/dL 8.5-10.1 [facility] Work Phone: Serum or plasma creatinine m easurement (mass/volume)on 01-24-2022 Creatinine [Mass/Vol] 1.15 mg/dL 0.70-1.30 [facility] Work Phone: Comment on above: The validity of the calculated GFR & GFRAA in patients over 70 years has not been determined. Clinical correlation is essential. Serum or plasma urea nitroge n measurement (mass/volume)on 01-24-2022 Urea nitrogen [Mass/Vol] 21 mg/dL 7-18 [facility] Work Phone: Thin prep Papanicolaou smear with manual screeningon 01-24-2022 Thin prep Papanicolaou smear with manual screening 25 U/L 15-37 [facility] Work Phone: Thin prep Papanicolaou smear with manual screening 5 5-15 [facility] Work Phone: No Panel Informationon 10-08 [facility] Vital Signs Date Time Vital Sign Value Performing Clinician Faci lity 10-20-2024 08:35-0400 Body height 170.[address] Luis Carter MD Work Phone: [facility] 10-20-2024 08:35-0400 Body mass index (BMI) [Ratio] 29 kg/m2 Dr. Luis Carter MD Work Phone: [facility] 10-20-2024 08:35-0400 Body weight 83.[address] Luis Carter MD Work Phone: [facility] 10-20-2024 08:35-0400 Diastolic blood pressure 62 mm[Hg] Dr. Luis Carter MD Work Phone: [facility] 10-20-2024 08:35-0400 Heart rate 64 /min Dr. Luis Carter MD Work Phone: [facility] 10-20-2024 08:35-0400 Respiratory rate 20 /min Dr. Luis Carter MD Work Phone: [facility] 10-20-2024 08:35-0400 Systolic blood pressure 138 mm[Hg] Dr. Luis Carter MD Work Phone: [facility] Encounters Encounter Date Encounter Type Care Provider Facility Start: 11-16-2024 ambulatory [facility] Facility:[facility] Start: 10-20-2024 End: 10-20-[address] August Oconnor MD -[facility] Work Phone: Start: 10-20-2024 End: 10-20-[address] Luis Carter MD Work Phone: [facility] Work Phone: Start: 09-10-2024 Non-patient / Non-visit Dr. Eriberto faulkner MD -[facility] Start: 09-10-2024 End: 09-10-[address] Luis Carter MD Work Phone: [facility] Work Phone: Start: 09-10-2024 End: 09-10-[address] Luis Carter MD -Cardiovascular Services Work Phone: Start: 09-10-2024 End: 09-10-2024 ambulatory Luis Carter Facility:[facility] Start: 08-17-2024 End: 08-17-[address] Luis Carter MD Work Phone: [facility] Work Phone: Start: 08-17-2024 End: 08-17-[address] Luis Carter MD -Laboratory, Phy Office 3rd Flr Start: 08-17-2024 End: 08-17-2024 ambulatory Luis Lambok Facility:[facility] Start: 02-02-2024 End: 02-02-2024 ambulatory [facility] Juliane Facility:[facility] Start: 08-06-2023 End: 08-06-2023 ambulatory [facility] Work Phone: Start: 08-06-2023 End: 08-06-2023 [facility] Start: 02-03-2023 Non-patient / Non-visit Dr. Nadeem Carter Work Phone: [facility] Start: 01-31-2023 End: 01-31-[address] Luis Carter Work Phone: [facility] Work Phone: Start: 01-31-2023 End: 01-31-2023 Patient encounter procedure [facility]-Pulmonary Services/Neurology Work Phone: Start: 01-27-2023 End: 01-27-2023 ambulatory [facility] Work Phone: Start: 01-27-2023 End: 01-27-2023 Patient encounter procedure [facility]-Laboratory, Phy Office 3rd Flr Start: 11-27-2022 Telephone encounter Rodolfo sanders MD Work Phone: [facility] [place] Comment on above: Patient Question Start: 06-28-2022 End: 06-28-2022 ambulatory NIDHI C CALL Facility:[facility] Start: 06-28-2022 End: 06-28-2022 Nursing evaluation of patient and report Nurse/[facility] Work Phone: Podiatry Comment on above: Arthritis of foot (P rimary Dx); Pes planus of both feet Start: 01-24-2022 End: 01-24-2022 ambulatory [facility] Work Phone: Start: 01-24-2022 End: 01-24-2022 Patient encounter procedure [facility]-Laboratory, Phy Office 3rd Flr Start: 10-08-2021 End: 10-08-2021 Subsequent hospital visit by physician Xr [facility] Work Phone: Radiology Comment on above: Arthritis of foot [M 19.079] Start: 10-08-2021 End: 10-08-2021 Patient encounter procedure Corbin Aly Work Phone: Podiatry Comment on above: Arthritis of foot (P rimary Dx); Left foot drop; Neuropathy; Pes planus of both feet Procedures Date Procedure Procedure Detail Performing Clinician Start: 08-06-2023 CT of chest Start: 10-08-2021 Radex foot complete minimum 3 views Corbin Aly Work Phone: Plan of Treatment Date Care Activity Detail Author Start: 10-20-2024 Evaluation of diagnostic study results [facility] Start: 02-07-2023 [facility] Start: 06-09-2022 DEPRESSION ASSESSMENT DEPRESSION ASSESSMENT [facility] Start: 02-07-2022 Influenza vaccination [facility] Start: 11-09-2020 COVID-19 VACCINE (2 - Booster for Kezia series) COVID-19 VACCINE (2 - Booster for Kezia series) [facility] Start: 09-21-2019 PROSTATE CANCER SCREENING DISCUSSION PROSTATE CANCER SCREENING DISCUSSION [facility] Start: 2014 SHINGRIX VACCINE (1 of 2) SHINGRIX VACCINE (1 of 2) [facility] Start: 2009 COLOGUARD (FIT-DNA) COLOGUARD (FIT-DNA) [facility] Start: 2009 Colonoscopy COLONOSCOPY [facility] Start: 2009 COLORECTAL CANCER SCREENING COLORECTAL CANCER SCREENING [facility] Start: [address] COLONOGRAPHY [facility] Start: 2009 DIABETES SCREEN DIABETES SCREEN [facility] Start: 2009 FECAL OCCULT BLOOD FECAL OCCULT BLOOD [facility] Start: 2009 SIGMOIDOSCOPY SIGMOIDOSCOPY [facility] Start: 09-21-1999 LIPID SCREEN LIPID SCREEN [facility] Start: 09-21-1983 Urine microalbumin profile DTAP,TDAP,TD (1 - Tdap) [facility] Start: 1982 HEPATITIS C SCREENING HEPATITIS C SCREENING [facility] Start: 1982 HIV SCREENING HIV SCREENING [facility] Start: 1976 Adult depression screening assessment DEPRESSION SCREENING [facility] Start: 1964 HEPATITIS B (1 of 3 - 3-dose series) HEPATITIS B (1 of 3 - 3-dose series) [facility] Payers Date Payer Category Payer Unknown [id number] 2024 Self-pay [id number] 2024 Unknown [id number] 2022 Unknown [employer] PPO [id number] 2022-Present [phone] [address] [place] [address] PPO [id number] 2021 Private Health Insurance [employer] CHOICE POS [id number] 2021-Present [phone] [address] [place] [address] POS [id number] 2021 Private Health Insurance [id number] 2021 Private Health Insurance [employer] MANA[employer]ED CHOICE POS [id number] 2021-Present [phone] [address] [place] [address] POS [id number] 2006 Unknown [facility] *DO NOT USE* [id number] Unknown [employer] [id number] Unknown ANTHEM [id number] Unknown [id number] 62 Unknown [id number] 62 Unknown [id number] 62 Unknown [id number] 62 Unknown [id number] 62 Unknown [id number] 62 Unknown [id number] 62 Social History Date Type Detail Facility Start: 06-23-2019 Tobacco smoking stat [facility] Never smoked tobacco [facility] History of tobacco use Chews Tobacco [facility] Start: 10-08-2021 Alcohol intake Current drinke r of alcohol (finding) [facility] Start: 1965 Sex Assigned At Not on file [facility] Start: 09-28-2021 End: 10-08-2021 Exposure to SARS-CoV-2 (event) Not sure [facility] Start: 1965 Sex Assigned At Male [facility] Start: 06-23-2019 Tobacco use and exposure User of smokeless tobacco [facility] Work Phone: Start: 08-26-2024 End: 09-16-2024 Sex Male (finding) [facility] Start: 09-03-2024 Tobacco smoking stat us ILIS Smokes tobacco daily (finding) [facility] Start: 10-20-2024 Tobacco smoking stat us ILIS Ex-smoker (finding) [facility] Clinical Notes 10-08-2021 to 10-20-2024 Note Date & Type Note Facility 10-20-2024 Progress note [facility] 10-20-2024 Progress note Note Date/Time October 20, 2024 10:40am [facility] [address] [place] [address] OFFICE VISIT Date of Service: 10/20/24 MR#: [id number] Acct: [id number] Name: DEMETRIUS PENA Rep #: [id number] : 1965 Provider: Dr. Zack Oconnor MD Age/Sex: 59/M Location: [facility] Status: Signed HPI HPI History of Present Illness Details: This gentleman has been referred to us for syncopal episode. Per patient, in July of this year, he was partying with his and some friends. Per him, he drank excessively and also had some THC Gummies. While with his friends, he momentarily just put his head back. According to him, his friend shook him and then he was back to normal. The same episode occurred about 5 days later when he has not had any alcohol or the Gummies. He just feltlightheaded on that occasion. Per patient, he feels lightheaded for a few seconds almost on a daily basis. According to him, he could be sitting or walking when he momentarily feels lightheaded. No syncope or presyncope. Per him, he just feels unsteady on his feet for a couple of seconds most. Denies any chest pains either at rest or with exertion. Per patient, he previously used to get shortness of breath with exertion however since his inhaler was changed for his asthma, he has not been having any shortness of breath either at rest or with exertion. Denies any palpitations. No orthopnea or PND. No ankle edema. Patient has had an echocardiogram done. It showed normal left ventricular systolic function. Mildly dilated left atrium was reported. Doppler ultrasoundof the carotids showed 50 to 69% stenosis bilaterally. Intake Vital Signs 10/20/24 08:35 Height 5 ft 7 in Weight: 185 lb BMI 29.0 BP 138/62 H Blood Pressure Location Lt brachial Position Sitting Respiration 20 H Pulse 64 Pulse Source NIBP Intake Visit Reasons: SYNCOPE (JULIANE) Camera Technician Required: No Accompanied by: Self Is patient in pain?: No Allergies Iodinated Contrast Media (CT) Allergy (Intermediate, Verified 10/20/24 10:07) Hives iodine Allergy (Intermediate, Verified 10/20/24 10:07) Hives Medications ?Medication ?Instructions ?Recorded ?Confirmed ?Type gabapentin 300 mg capsule 300 mg PO QHS 09/03/2410/20 History fluticasone furoate 200 1 inh inhalation QDAY 10/20/24 History mcg/actuation blister powder for inhalation (Arnuity Ellipta) Ejection fraction %: 60 Have you fallen in the past year?: No PFSH Medical History (Updated 10/20/24 @ 10:[address] August Oconnor MD) Essential hypertension Hyperlipidemia Asthma Lightheadedness Syncope Sciatica History of back problems Arthritis Surgical History History of repair of ACL History of colonoscopy Family History Aunt Breast cancer Mother Breast cancer Father Cancer Lung Cancer Grandfather Hypertension Grandmother Hypertension Social History Smoking Status: Former smoker quit date: 06/09/87 alcohol intake: current substance use type: other details: THC Gummies ROS Const Const: Negative for fatigue, weakness, headache(s) or weight gain ENT ENT: Positive for dizziness and balance problems; Negative for headache(s) or Nosebleed/epistaxis Cardio Chest Pain: No Palpitations: No Edema: None Muscle aches with walking: None Resp Respiratory: Negative for SOB with activity, SOB at rest or SOB orthopneaundefinedSOB lying down GI GI: Negative nausea, vomiting or heartburn Musc Musc: Positive for balance problems; Negative for muscle aches/ myalgia, muscle weakness or joint pain Neuro Neuro: Positive for dizziness and lightheadedness; Negative for near syncope, syncope, headache(s) or weakness Endo Endo: Negative for fatigue Cardiology Exam Const Appearance: comfortable and no acute distress Nutritional Appearance: well nourished Neck Neck: no JVD Carotids: Negative bruit Chest Auscultation: Bilateral: Clear to Auscultation Cardio Rate: regular rate Rhythm: regular rhythm Heart sounds: S1 normal and S2 normal Neuro General: patient alert, patient awake and patient oriented x3 Extremities Lower Extremity Edema: None: Bilateral Supplemental Info Supplemental Information Echocardiogram 09/10/2024: Interpretation Summary Normal LV size. Left ventricular systolic function is normal. The estimated ejection fraction is 60 %. The left atrium is mildly enlarged. Stress Test 02/14/2023: Conclusion: Exercise stress test with nonspecific EKG changes not meeting the criteria for ischemia. Carotid Duplex US 09/12/2024: Interpretation Summary Moderate (50-69%) stenosis right extracranial internal carotid. Elevated veolcities mid common carotid artery Moderate (50-69%) stenosis left extracranial internal carotid. Patent and antegrade vertebrals bilaterally. Assessment and Plan Assessment and Plan (1) Lightheadedness: Status: Chronic Plan: Per patient, this happens almost on a daily basis. Check 48-hour Holter monitor. Normal LV systolic function on echo. Moderate bilateral carotid artery disease. Refer to vascular surgery for establishing care. (2) Syncope: Status: Resolved Plan: Question of very brief syncopal episode earlier in July when he was under the influence of alcohol and cannabis Gummies. Counseled to quit alcohol and drugs. (3) Carotid artery disease: Status: Chronic Plan: Start enteric-coated aspirin 81 mg daily. Refer to vascular surgery for establishing care. (4) Dyslipidemia: Status: Chronic Plan: Repeat lipid profile. (5) Asthma: Status: Chronic Plan: As per PCP. (6) ETOH abuse: Status: Chronic Plan: Per patient, he has a couple drinks of hard liquor every night. Counseled to quit. Orders: Orders 12 Lead EKG performed by BMS Today R42 - Dizziness and giddiness, R55 - Syncopeand collapse Plan Details Follow Up: 3 Months Coding Level of Care Code Off vis,new,level 4 Diagnoses Lightheadedness R42 Syncope R55 Carotid artery disease I77.9 Dyslipidemia E78.5 Asthma J45.909 ETOH abuse F10.10 Coding Level of Care Code Off vis,new,level 4 Diagnoses Lightheadedness R42 Syncope R55 Carotid artery disease I77.9 Dyslipidemia E78.5 Asthma J45.909 ETOH abuse F10.10 Clinical Quality Measures Falls Risk Screening/Assistive Devices Have you fallen in the past year?: No Cardiac Ejection fraction %: 60 10/20/24 1040 <Electronically signed by August Oconnor MD> Date _ [facility] Signature: Date (if applicable) CC: Dr. Luis Carter MD ~ [place] [employer] Work Phone: [phone] 902-116308-28-2023 Procedure [facility] 11-27-2022 Miscellaneous Notes* Telephone Encounter - Maddison Gale RN - 11/27/2022 4:34 PM EDT Pt called and is notified of providers message and instructions. Pt voices understanding, states his elbow is hurting so he will have to see other provider. Pt will call back to schedule with Dr Valentine. Maddison Gale RN * Telephone Encounter - Danielle Hernandez LPN - 11/27/2022 4:25 PM EDT Message left to pt with info and requested return call to arrange appt. * Telephone Encounter - Rodolfo Guerrero MD - 11/27/2022 12:51 PM EDT Okay. Schedule in 1-2 months. Request records. * Telephone Encounter - kSylar Sal - 11/27/2022 9:55 AM EDT Pts called to see if pt could be added as a pt. She is a pt and spoke with Dr. Guerrero. Please advise if pt can be established. [facility]23 NoteHNO ID: [id number] Author: Carri Hunt LPN Service: ? Author Type: LICENSED NURSE Type: Progress Notes Filed: 06/28/2022 2:19 PM Note Text: Per Demetrius Wilde was provided with powerstep original inserts, size 9, and instructed/educated in its application, wear, and care. All questions were answered, and patient was able to demonstrate competence with the necessary skills to utilize the above equipment. [facility] History of Present illness Narrative* Carri Hunt LPN - 06/28/2022 2:19 PM EST Per Demetrius Wilde was provided with powerstep original inserts, size 9, and instructed/educated in its application, wear, and care. All questions were answered, and patient was able to demonstrate competence with the necessary skills to utilize the above equipment. Carri Hunt LPN documented in this encounterGood [facility]05-02-[facility]22 History of Present illness Narrative* Naila Diaz RN - 10/08/2021 2:34 PM EDT Per Demetrius Wilde was provided with a pair of Power Step original inserts, size 9 -9 1/2, and instructed/educated in its application, wear, and care. All questions were answered, and patient wasable to demonstrate competence with the necessary skills to utilize the above equipment. Naila Diaz RN * Corbin Aly - 10/08/2021 10:04 AM EDT Images from the original note were not [...] 2.5 years ago and was treated at [facility] with epidural. That epidural injection helped his pain in back and legs but the pain in his foot did not relieve. Patient was prescribed gabapentin and voltaren. The gabapentin and voltaren did help. Unfortunately, his pain specialistleft town. The new pain specialist feels he needs another epidural injection . Patient is not interested in another injection. 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 Patient is here to have his foot evaluated. PAIN EVALUATION 10/08/2021 0931 Pain Level: 2 Pain Location: Foot-Left Description: Other: See comment Feel like a weight on my foot, like a torniquet. Duration Amount of Time: 2 Duration Units: Years Frequency: Continuous Intervention/Comfort measure: Medication No results found for: HBA1C PCP: Nidhi Diaz PAST MEDICAL HISTORY Diagnosis Date NEGATIVE [...] patient demonstrates slight decrease in strength of leftfoot relative to right foot and has evidence of neuropatrhy, I do feel his pain is likely more arthritis than the dropfoot or neuropathy 3. I am going to recommend powerstep inserts. If he continues to have pain, consider midtarsal joint injection under xray guide 4. xrays ordered today Corbin Aly DPM Podiatry [address] [place] [facility] [address] Dept: [phone] Dept documented in this encounterGood [facility] History of Present illness Narrative* RT Mary Lou(R) - 10/08/2021 10:30 AM EDT Radiology Service Progress Note PATIENT NAME: Demetrius Pena DATE OF SERVICE: October 08, 2021 TIME: 10:35 AM PATIENT IDENTITY VERIFICATION COMPLETED USING TWO (2) IDENTIFIERS: Name and Date of confirmedby patient verbally. FALL SCREENING: Has the patient had 2 falls in the last year or 1 fall with injury or currently using an Ambulatory Assistive Device (Walker, Cane, Wheelchair, Crutches, etc.)? No PATIENT GENDER DATA: Male PATIENT RELEVANT IMPLANT DATA REVIEWED: Not Applicable RADIOLOGY DEPARTMENT: General X-ray: Exam(s) Completed: Lower Extremity X- Ray(s): Foot, Bilateral and Wt. Bearing PERIPHERAL IV DATA: Not applicable SIGNED BY: RT Mary Lou(R) October 08, 2021 10:35 AM documented in this encounterGood [facility]05-02-2022 Instructions* Patient Instructions* Corbin Aly - 10/08/2021 10:18 AM EDT Powerstep Original Full length. Can purchase at [employer] here in [place], [employer] in [place] or [place]. Also can find in [place] in [facility]. Powersteps can also be purchased online, [...] consider injection under xray [facility]* Diagnosis Arthritis of foot- Primary Unspecified arthropathy, ankle and foot Left foot drop Other acquired deformity of ankle and foot Neuropathy Mononeuritis of unspecified site Pes planus of both feet documented in this encounter [facility]* Diagnosis Arthritis of foot Unspecified arthropathy, ankle and foot Pes planus of both feet documented in this encounter [facility] noteNo assessment information availableWAdena [facility] Work Phone: Evaluation note* Diagnosis Arthritis of foot- Primary Unspecified arthropathy, ankle and foot Pes planus of both feet documented in this encounter [facility] note* Diagnosis Onset Date Resolution Status Admit Date Asthma chronic October 20, 2024 9:59am Carotid artery disease chronic 2024 9:59am Dyslipidemia chronic October 20 9:59am ETOH abuse chronic October 20, 2024 9:59am Lightheadedness chronic October 20, 2024 9:59am Syncope resolved October 20, 2024 9:59am [facility] Work Phone: Reason for referral (narrative)* Diagnostic Procedure Only (Routine) - Closed Specialty Diagnoses / Procedures Referred By Contac t Referred To Contact XR IMAGING Diagnoses Arthritis of foot Pes planus of both feet Procedures XR FOOT GENERAL 3V AP/LAT/OBL BILATERAL RADEX FOOT COMPLETE MINIMUM 3 VIEWS Corbin Aly [address] [place] [address] Xr Imaging Referral ID Status Reason Start Date Expiration Date V isits Requested Visits Authorized [id number] Closed Auto-Generate d Referral 10/08/2021 11/07/2022 1 1 [facility] for referral (narrative)* Diagnostic Procedure Only (Routine) - Closed Specialty Diagnoses / Procedures Referred By Contac t Referred To Contact XR IMAGING Diagnoses Arthritis of foot Pes planus of both feet Procedures XR FOOT GENERAL 3V AP/LAT/OBL BILATERAL RADEX FOOT COMPLETE MINIMUM 3 VIEWS Corbin Aly [address] [place] [address] Xr Imaging Referral ID Status Reason Start Date Expiration Date V isits Requested Visits Authorized [id number] Closed Auto-Generate d Referral 10/08/2021 11/07/2022 1 1 [facility] for referral (narrative)No reason for referral information availableWAdena [facility] Work Phone: Reason for visit Narrative* Diagnostic Procedure Only (Routine) - Closed Specialty Diagnoses / Procedures Referred By Contac t Referred To Contact XR IMAGING Diagnoses Arthritis of foot Pes planus of both feet Procedures XR FOOT GENERAL 3V AP/LAT/OBL BILATERAL RADEX FOOT COMPLETE MINIMUM 3 VIEWS Corbin Aly [address] [place] [address] Xr Imaging Referral ID Status Reason Start Date Expiration Date V isits Requested Visits Authorized [id number] Closed Auto-Generate d Referral 10/08/2021 11/07/2022 1 1 [facility] Family History No Family History Records Found Relationship Condition Age at Onset Recorded Date/T shon aunt Malignant neoplasm of breast Unknown mother Malignant neoplasm of breast Unknown father Malignant neoplasm Unknown grandfather Hypertension Unknown grandmother Hypertension Unknown Summary Purpose Advance Directives No Advanced Directives Records FoundNo Advanced Directives Records Found Chief Complaint and Reason for Visit Chief Complaint SOB Chief Complaint SOB Shortness of breath Chief Complaint NICOTINE DEPENDENCE Chief Complaint Admit Date SOB September 10, 2024 1:56 pm Chief Complaint Admit Date SOB September 10, 2024 1:56 pm SYNCOPE (JULIANE) October 20, 2024 9:59a m Reason for Visit Admit Date Asthma October 20, 2024 9:59a m Carotid artery disease October 20, 2024 9: 59am Dyslipidemia October 20, 2024 9:59a m ETOH abuse October 20, 2024 9:59a m Lightheadedness October 20, 2024 9:59a m Syncope October 20, 2024 9:59a m Additional Source Comments Source Comments (unrecognize d section and content) In the event this informatio n is protected by the Federal Confidentiality of Alcohol and Drug Abuse Patient Records regulations: The Federal rules restrict any use of the information to criminally investigate or prosecute any alcohol or drug abuse patient.[facility] HospitalIn the event this information is protected by the Federal Confidentiality of Alcohol and Drug Abuse Patient Records regulations: The Federal rules restrict any use of the information to criminally investigate or prosecute any alcohol or drug abuse patient.[facility] HospitalIn the event this information is protected by the Federal Confidentiality of Alcohol and Drug Abuse Patient Records regulations: The Federal rules restrict any use of the information to criminally investigate or prosecute any alcohol or drug abuse patient.[facility] HospitalIn the event this information is protected by the Federal Confidentiality of Alcohol and Drug Abuse Patient Records regulations: The Federal rules restrict any use of the information to criminally investigate or prosecute any alcohol or drug abuse patient.[facility] Reason for Visit (unrecogniz ed section and content) Reason Comments New Pain Reason Comments Patient Question Care Teams (unrecognized sec tion and content) 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 Luis Carter MD Family Provider Active Dr. Luis Carter MD Primary Care Provider Active Team Status: Inactive Member Role Status Dates Dr. Luis Carter MD Primary Care Provider, Attending Provider Active Team Status: Active Member Role Status Dates Dr. Luis Carter MD Primary Care Provi sudhir, Attending Provider, Referring Provider Active Team Status: Active Member Role Status Dates Dr. Luis Carter MD Primary Care Provi sudhir, Referring Provider, Other Provider Active Dr. Chapin Buckley DO Attending Provider Active Team Status: Inactive Member Role Status Dates Dr. Luis Carter MD Primary Care Provi sudhir, Attending Provider, Referring Provider Active Team Status: Active Member Role Status Dates Dr. Luis Carter MD Primary Care Provider Active Team Status: Inactive Member Role Status Dates Dr. Luis Carter MD Primary Care Provider Active Start: August 17, 2024 End: August 17, 2024 Dr. Luis Carter MD Attending Provider Active Start: August 17, 2024 End: August 17, 2024 Team Status: Inactive Member Role Status Dates Dr. Luis Carter MD Primary Care Provider Active Start: September 10, 2024 End: September 10, 2024 Dr. Luis Carter MD Attending Provider Active Start: September 10, 2024 End: September 10, 2024 Dr. Luis Carter MD Referring Provider Active Start: September 10, 2024 End: September 10, 2024 Team Status: Active Member Role Status Dates Dr. Luis Carter MD Primary Care Provider Active Start: September 10, 2024 Dr. George Mann MD Attending Provider Active S tart: September 10, 2024 Team Status: Active Member Role Status Dates Dr. Luis Carter MD Primary Care Provider Active Start: September 10, 2024 Dr. Luis Carter MD Referring Provider Active Start: September 10, 2024 Dr. Eriberto Heller MD Attending Provider Active S tart: September 10, 2024 Team Status: Inactive Member Role Status Dates Dr. Luis Carter MD Primary Care Provider Active Start: October 20, 2024 End: October 20, 2024 Dr. Luis Carter MD Referring Provider Active Start: October 20, 2024 End: October 20, 2024 Dr. August Oconnor MD Attending Provider Active Start: October 20, 2024 End: October 20, 2024 Goals (unrecognized section and content) Goals may be documented in a n alternate sectionGoals may be documented in an alternate sectionGoals may be documented in an alternate sectionGoals may be documented in an alternate sectionGoals may be documented in an alternate sectionGoals may be documented in an alternate sectionGoals may be documented in an alternate section (unrecognized sect ion and content) No Status Records FoundNo Status Records Found INFORMATION SOURCE (unrecogn ized section and content) DATE CREATED AUTHOR 12/19/2022 [facility] DATE CREATED AUTHOR 'S PARMJIT ATCHRIS 11/05/2024 [facility] FOR RECORDS PERTAINING TO PATIENTS WHO ARE [...] BE BASED ON THE PRIMARY CLINICAL RECORDS. [facility] CenterFastBook[facility]. provides no warranty or guarantee of the accuracy or completeness of information in this document.
== END | disposition home or self-care (01) ==
LOC: PSN 09:15 → LAB 09:32
PROVIDERS: PCP Family Medicine Geriatric Medicine; Referring Provider Internal Medicine Cardiovascular Disease; Visit Provider Internal Medicine Cardiovascular Disease
DX: R42 Dizziness and giddiness (principal); R55 Syncope and collapse; I10 Essential (primary) hypertension; E78.5 Hyperlipidemia, unspecified
CPT/HCPCS: 36415; 80053; 80061; 93225; 93226

== ENCOUNTER 2024-11-29 15:18 | Observation (INO) | payer OTHER, SELFPAY ==
[2024-11-26 10:06] VITALS: BMI 29.0
--- NOTE | 2024-11-26 12:10 | RAD_ITS ---
PROCEDURE: CHEST PA AND LATERAL 11/26/2024 REASON FOR EXAM: PACEMAKER INSERTION TECHNIQUE: CHEST PA AND LATERAL COMPARISON: None. FINDINGS: The lungs are expanded. There is no demonstrated parenchymal abnormality. There is no demonstrated pleural abnormality. Normal heart and pericardium. Normal mediastinum and jennyfer. Normal visualized pulmonary arteries. Normal visualized aortic arch and descending thoracic aorta. Normal visualized thoracic spine. Normal visualized ribs, clavicles, and shoulders. There is no demonstrated abnormality of the visualized soft tissue structures of the upper abdomen. RAD/Chest PA and Lateral IMPRESSION: No evidence for acute abnormality. Reading Location[facility]
--- NOTE | 2024-11-26 12:10 | RAD_ITS ---
PROCEDURE: CHEST PA AND LATERAL 11/26/2024 REASON FOR EXAM: PACEMAKER INSERTION TECHNIQUE: CHEST PA AND LATERAL COMPARISON: None. FINDINGS: The lungs are expanded. There is no demonstrated parenchymal abnormality. There is no demonstrated pleural abnormality. Normal heart and pericardium. Normal mediastinum and jennyfer. Normal visualized pulmonary arteries. Normal visualized aortic arch and descending thoracic aorta. Normal visualized thoracic spine. Normal visualized ribs, clavicles, and shoulders. There is no demonstrated abnormality of the visualized soft tissue structures of the upper abdomen. RAD/Chest PA and Lateral IMPRESSION: No evidence for acute abnormality. Reading Location[facility]
[2024-11-26 12:17] LABS: Bacteria 0 SEEN /hpf (None Seen); Mucous, Urine 0 SEEN /hpf (<or=2+); Squamous Epithelial Cells - UA 0 SEEN /hpf (0-5); White Blood Cells 0 SEEN /hpf (0-5)
[2024-11-26 12:42] LABS: Hemoglobin 14.4 g/dL (13.0-16.5); Mean Corp Hgb Conc 33.5 g/dL (32-36); Mean Corpuscular Hgb 31.2 pg (27.0-32.0); Mean Corpuscular Volume 93.1 fL (80-94); Mean Platelet Vol. 8.8 fl (6.2-12.0); Platelet Count 303 K/mm3 (150-450); RBC Distribution Width CV 12.6 % (11.6-14.6); RBC Distribution Width SD 42.9 fl (35.1-43.9); Red Blood Count 4.62 M/mm3 (4.6-6.2); White Blood Count 8.2 K/mm3 (4.4-11.0)
[2024-11-26 12:46] LABS: Color, Urine Yellow (Yellow); Glucose, Dipstick Normal (Normal); Ketone-Dipstick Negative (Negative); Leukocyte Esterase-Dipstick Negative /ul (Negative); Nitrite-Dipstick Negative (Negative); Occult Blood-Urine 10 /ul (Negative); Protein-Dipstick Negative (Negative); Urine Bilirubin Dipstick Negative (Negative); Urine Clarity Clear (Clear); Urine Urobilinogen Normal (Normal)
[2024-11-26 12:48] LABS: International Normalized Ratio 0.9; Prothrombin Time (Protime)PT. 12.2 SECONDS (11.7-14.9)
[2024-11-26 12:52] LABS: Red Blood Cells-Urine 0-5 SEEN /hpf (0-5)
[2024-11-26 13:30] LABS: Anion Gap 10 (5-15); BUN 20 mg/dL (4-19); BUN/Creat Ratio 20.8 RATIO (10-20); Calcium,Total 9.4 mg/dL (7.6-11.0); Carbon Dioxide 27.6 mmol/L (21.0-32.0); Chloride 103 mmol/L (98-108); Creatinine, Serum 0.95 mg/dL (0.70-1.20); EST Glomerular Filtration Rate 92 (>60); Estimated Creatinine Clearance 84.03 ml/min (50-250); Glucose 114 mg/dL (70-99); Sodium Level 141 mmol/L (133-145)
[2024-11-29] VITALS (8 sets, daily range): BP systolic 128–154; BP diastolic 66–86; PULSE 63–73; RESP 18; TEMP 36.5–36.6; O2SAT 95–98; BMI 29.0
[2024-11-29] MEDS: Atorvastatin Calcium 20 MG Tablet PO (21:33)
[2024-11-29] MEDS: Gabapentin 300 MG Capsule PO (21:33)
--- OUTSIDE RECORDS SUMMARY | 2024-11-29 23:09 | XMS RPT_ITS | CCD ---
Author Organization [facility] Care Team Providers Care Red Leader Name Role Phone Call, Nidhi Greer Primary Care Provider Juliane, Dr. Luis Chiang Primary Care Provider Juliane, Dr. Luis Chiang Referring Provider Juliane, Dr. Luis Chiang Other Provider Dr. Chapin Buckley Attending Provider 1([facility])[phone] Juliane CUTLER, Dr. Luis Chiang Primary Care Provider 1([facility] )[phone] Juliane CUTLER, Dr. Luis Chiang Attending Provider 1([facility])[phone] Juliane CUTLER, Dr. Luis Chiang Referring Provider Johnathan CUTLER, Dr. Vazquez Attending Provider [phone] Pina CUTLER, Dr. Wei Attending Provider 1([facility])[phone] Elvin CUTLER, Dr. Koch Attending Provider Elvin CUTLER, Dr. Koch Referring Provider Danyell Lyon Attending Provider [phone] George Mann Attending Unavailable George Mann Referring Unavailable Juliane, Luis Chi Primary Care Unavailable Juliane, Luis Chi Attending Unavailable Juliane, Luis Chi Referring Unavailable Juliane, Luis Chi Primary Care Unavailable Juliane, Luis Chi Referring Unavailable Juliane, Luis Chi Primary Care Unavailable Eriberto Heller Attending Unavailable George Mann Attending Unavailable Juliane, Luis Chi Primary Care Unavailable Danyell Quintero Attending Unavailable Juliane, Luis Chi Referring Unavailable Juliane, Luis Chi Primary Care Unavailable August Oconnor Attending Unavailable Juliane, Luis Chi Referring Unavailable Juliane, Luis Chi Primary Care Unavailable Juliane, Luis Chi Attending Unavailable Juliane, Luis Chi Primary Care Unavailable Juliane, Luis Chi Primary Care Unavailable Juliane, Luis Chi Attending Unavailable August Oconnor Attending Unavailable August Oconnor Referring Unavailable Luis Carter Chi Primary Care Unavailable Allergies Allergy Classification Reported Allergen(s) Allergy Type Date of Onset Reaction(s) Facility (4 sources) ct-scan dye [Other] Propensity to adverse reactions 6 [facility] (2 sources) Contrast media Allergy to substance 0 [facility] Work Phone: (10 sources) Iodine Drug Allergy 0 [facility] (1 source) OTHER; Translations: [OTHER] Propensity to adverse reactions (disorder) [address] [facility] Repository (8 sources) Triiodobenzoic Acids Allergy to substance 3 [facility] Comment on above: CT DYE (1 source) Iodine Drug Allergy 5 [facility] Repository (1 source) Iodinated Contrast Media Drug allergy (disorder) 5 [facility] Repository Medications Current Medications Medication Drug Class(es) Dates Sig (Normalized) Sig (Original) aspirin 81 mg delayed release oral tablet (2 sources) Platelet Aggregation Inhibitor, Nonsteroidal Anti-inflammatory Drug Start: 10-20-2024 Aspirin (Adult Low Dose Aspirin) 81 mg tablet,delayed release (DR/EC) Active 81 mg PO daily October 20, 2024 12:00am atorvastatin 20 mg oral tablet (2 sources) HMG-CoA Reductase Inhibitor Start: 11-17-2024 take 1 tablet by mouth once daily Atorvastatin 20 mg tablet Active 20 mg PO DAILY November 17, 2024 12:00am diphenhydrAMINE hydrochloride 25 mg oral capsule (1 source) Histamine-1 Receptor Antagonist Start: 11-26-2024 take 1 capsule by mouth at bedtime as needed Diphenhydramine Hcl (Benadryl) 25 mg capsule Active 25 mg PO AT BEDTIME as needed November 26, 2024 12:00am Fluticasone Furoate (3 sources) Corticosteroid Start: 10-20-2024 take 200 ug by inhalation once daily Fluticasone Furoate (Arnuity Ellipta) 200 mcg/actuation blister with device Active 1 NMA INHALATION daily October 20, 2024 12:00am gabapentin 300 mg oral capsule (18 sources) Anti-epileptic Agent Start: 09-03-2024 take 1 capsule by mouth at bedtime Gabapentin 300 mg capsule Active 300 mg PO AT BEDTIME September 03, 2024 10:43am Start: 08-10-2021 take 1 capsule by mo uth once daily gabapentin (NEURONTIN) 300 mg capsule [...] Drug Class(es) Dates Sig (Normalized) Sig (Original) [id number] 200 actuat albuterol 0.09 mg/actuat metered dose inhaler (4 sources) beta2-Adrenergic Agonist Start: 09-03-2024 End: 10-20-2024 Albuterol Sulfate 90 mcg/actuation HFA aerosol inhaler Discontinued 2 NMA INHALATION Q4H as needed September 03, 2024 12:00am October 20, 2024 10:08am diclofenac sodium 75 mg delayed release oral tablet (14 sources) Nonsteroidal Anti-inflammatory Drug Start: 08-10-2021 take [...] once daily. metaxalone 800 mg oral tablet (14 sources) Start: 08-11-2021 take 1 tablet by [...] pantoprazole 40 mg delayed release oral tablet (10 sources) Proton Pump Inhibitor Start: 0 End: take 1 tablet by mouth once daily Pantoprazole 40 mg tablet,delayed release (DR/EC) Discontinued 40 mg PO DAILY March 06, 2020 12:00am September 03, 2024 10:44am Problems Active Problems Problem Classification Problem Date Documented Da te Episodic/Chronic Acquired foot deformities (4 sources) Left foot drop; Translations: [Foot drop, left foot] Episodic Alcohol-related disorders (7 sources) Alcohol abuse; Translations: [Alcohol abuse, uncomplicated] Onset: 10-20-2024 10-20-2024 Chronic Asthma (7 sources) Asthma; Translations: [Unspecified asthma, uncomplicated] Onset: 10-20-2024 10-20-2024 Chronic Cardiac dysrhythmias (4 sources) Sick sinus syndrome; Translations: [Sick sinus syndrome] Onset: 11-26-2024 11-22-2024 Chronic Conditions associated with dizziness or vertigo (8 sources) Lightheadedness; Translations: [Dizziness and giddiness] Onset: 11-18-2024 09-03-2024 Episodic Disorders of lipid metabolism (11 sources) Hyperlipidemia; Translations: [Hyperlipidemia, unspecified] Onset: 10-20-2024 09-03-2024 Chronic Essential hypertension (5 sources) Essential hypertension; Translations: [Essential (primary) hypertension] Onset: 08-26-2024 09-03-2024 Chronic Occlusion or stenosis of precerebral arteries (4 sources) Carotid artery stenosis Chronic Osteoarthritis (3 sources) Inflammation of joint of foot; Translations: [Primary osteoarthritis, unspecified ankle and foot] Chronic Other circulatory disease (6 sources) Disorder of carotid artery; Translations: [Disorder of arteries and arterioles, unspecified] 10-20-2024 Chronic Other circulatory disease (1 source) Disorder of arteries and arterioles, unspecified; Translations: [Disorder of arteries and arterioles, unspecified] Onset: 10-20-2024 Chronic Other lower respiratory disease (1 source) Shortness of breath; Translations: [Shortness of breath] Onset: 09-16-2024 Episodic Other nervous system disorders (1 source) Neuropathy; Translations: [Polyneuropathy, unspecified] Chronic Syncope (8 sources) Syncope; Translations: [Syncope and collapse] Onset: 10-20-2024 09-03-2024 Episodic Past or Other Problems Problem Classification Problem Date Documented Da te Episodic/Chronic Unclassified (9 sources) history bilateral ACL repair 12-28-2021 Results Test Name Value Interpretation Reference Range Facility Basic Metabolic Profile (BMP )on 11-26-2024 BUN/CRE 20.8 RATIO High 03-28 [facility] Comment on above: Performed By: #### L 501.9520, L100.0500, L300.3900, L500.2500, L400.0001 ####[facility] [address] [place], [address] Calcium [Mass/Vol] 9.4 mg/dL Normal 7.6-11.0 [facility] Comment on above: Performed By: #### L 501.9520, L100.0500, L300.3900, L500.2500, L400.0001 ####[facility] [address] [place], [address] Chloride [Moles/Vol] 103 mmol/L Normal 98-108 [facility] Comment on above: Performed By: #### L 501.9520, L100.0500, L300.3900, L500.2500, L400.0001 ####[facility] [address] [place], [address] CO2 [Moles/Vol] 27.6 mmol/L Normal 21.0-32.0 [facility] Comment on above: Performed By: #### L 501.9520, L100.0500, L300.3900, L500.2500, L400.0001 ####[facility] [address] [place], [address] Creatinine [Mass/Vol] 0.95 mg/dL Normal 0.70-1.20 [facility] Comment on above: Performed By: #### L 501.9520, L100.0500, L300.3900, L500.2500, L400.0001 ####[facility] [address] [place], [address] ECRCL 84.03 ml/min Normal 50-250 [facility] Comment on above: Performed By: #### L 501.9520, L100.0500, L300.3900, L500.2500, L400.0001 ####[facility] [address] [place], [address] GAP 10 Normal 5-15 [facility] Comment on above: Performed By: #### L 501.9520, L100.0500, L300.3900, L500.2500, L400.0001 ####[facility] [address] [place], [address] GFR/1.73 sq M.predicted among non-blacks MDRD (S/P/Bld) [Vol rate/Area] 92 mL/min/{1.73_m2} Normal >60 [facility] Comment on above: Result Comment: mL/m in/1.73m2 CKD-EPI Creatinine Equation (2020) Performed By: #### L 501.9520, L100.0500, L300.3900, L500.2500, L400.0001 ####[facility] [address] [place], [address] Glucose [Mass/Vol] 114 mg/dL High 70-99 [facility] Comment on above: Performed By: #### L 501.9520, L100.0500, L300.3900, L500.2500, L400.0001 ####[facility] [address] [place], [address] Potassium [Moles/Vol] 5.0 mmol/L Normal 3.3-5.1 [facility] Comment on above: Performed By: #### L 501.9520, L100.0500, L300.3900, L500.2500, L400.0001 ####[facility] [address] [place], [address] Sodium [Moles/Vol] 141 mmol/L Normal 133-145 [facility] Comment on above: Performed By: #### L 501.9520, L100.0500, L300.3900, L500.2500, L400.0001 ####[facility] [address] [place], [address] Urea nitrogen [Mass/Vol] 20 mg/dL High 4-19 [facility] Comment on above: Performed By: #### L 501.9520, L100.0500, L300.3900, L500.2500, L400.0001 ####[facility] [address] [place], [address] CBC-Complete Blood Cnt No Di ffon 11-26-2024 Erythrocyte distribution width (RBC) [Ratio] 12.6 % Normal 11.6-14.6 [facility] Comment on above: Performed By: #### L 501.9520, L100.0500, L300.3900, L500.2500, L400.0001 #### [facility] [address] [place], [address] Hematocrit (Bld) [Volume fraction] 43.0 % Normal 40-54 [facility] Comment on above: Performed By: #### L 501.9520, L100.0500, L300.3900, L500.2500, L400.0001 #### [facility] [address] [place], [address] Hemoglobin (Bld) [Mass/Vol] 14.4 g/dL Normal 13.0-16.5 [facility] Comment on above: Performed By: #### L 501.9520, L100.0500, L300.3900, L500.2500, L400.0001 #### [facility] [address] [place], [address] MCH (RBC) [Entitic mass] 31.2 pg Normal 27.0-32.0 [facility] Comment on above: Performed By: #### L 501.9520, L100.0500, L300.3900, L500.2500, L400.0001 #### [facility] [address] [place], [address] MCHC (RBC) [Mass/Vol] 33.5 g/dL Normal 32-36 [facility] Comment on above: Performed By: #### L 501.9520, L100.0500, L300.3900, L500.2500, L400.0001 #### [facility] [address] [place], [address] MCV (RBC) [Entitic vol] 93.1 fL Normal 80-94 [facility] Comment on above: Performed By: #### L 501.9520, L100.0500, L300.3900, L500.2500, L400.0001 #### [facility] [address] [place], [address] Platelet mean volume (Bld) [Entitic vol] 8.8 fL Normal 6.2-12.0 [facility] Comment on above: Performed By: #### L 501.9520, L100.0500, L300.3900, L500.2500, L400.0001 #### [facility] [address] [place], [address] Platelets (Bld) [#/Vol] 303 10*3/uL Normal 150-450 [facility] Comment on above: Performed By: #### L 501.9520, L100.0500, L300.3900, L500.2500, L400.0001 #### [facility] [address] [place], [address] RBC (Bld) [#/Vol] 4.62 10*6/uL Normal 4.6-6.2 [facility] Comment on above: Performed By: #### L 501.9520, L100.0500, L300.3900, L500.2500, L400.0001 #### [facility] [address] [place], [address] RDW SD 42.9 fl Normal 35.1-43.9 [facility] Comment on above: Performed By: #### L 501.9520, L100.0500, L300.3900, L500.2500, L400.0001 #### [facility] [address] [place], [address] WBC (Bld) [#/Vol] 8.2 10*3/uL Normal 4.4-11.0 [facility] Comment on above: Performed By: #### L 501.9520, L100.0500, L300.3900, L500.2500, L400.0001 #### [facility] [address] [place], [address] Cardiology Visit Reporton Cardiology Visit Report [facility] [address] [place], [place] [address] OFFICE VISIT Date of Service: 11/26/24 MR#: [id number] Acct: [id number] Name: DEMETRIUS PENA Rep #: [id number] : 1965 Provider: JAC causey Age/Sex: 59/M [place] [facility] [place] Status: Signed HPI HPI History of Present Illness Surgical H P: Yes Details: This is a 59-year-old male who presents today for cardiovascular follow-up visit. He was previously seen for syncopal episode. Per patient, in July [...] feet for a couple of seconds most. Patient has had an echocardiogram done. It showed normal left ventricular systolic function. Mildly dilated left atrium was reported. Doppler ultrasound of the carotids showed 50 to 69% stenosis bilaterally. His most recent 48-hour Holter monitor demonstrated intermittent AV block with significant pauses up to 6 seconds. From a cardiac standpoint, the patient is doing well. He denies any palpitations, chest pain, pressure or heaviness. He denies SOB, Orthopnea, and PND. He does not have bleeding issues; no blood in urine, stool, or nosebleeds. He denies any decrease in energy level, myalgias, or claudication. He does not have edema, or sudden weight gain. He does acknowledge lightheadedness/diz ziness. His last syncopal episode was in July. 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 [employer] Operator Required: No Is patient in pain?: No Allergies Iodinated Contrast Media (CT) Allergy (Intermediate, Verified 11/26/24 11:47) Hives iodine Allergy (Intermediate, Verified 11/26/24 11:47) Hives Medications ???Medication ???Instructions ???Recorded ???Confirmed ???Type gabapentin 300 mg capsule 300 mg PO QHS 09/03/24 11/26/24 Hi story aspirin 81 mg tablet,delayed 81 mg PO QDAY #90 tabs 10/20/24 Rx release (Adult Low Dose Aspirin) fluticasone furoate 200 1 inh inhalation QDAY 10/20/24 History mcg/actuation blister powder for inhalation (Arnuity Ellipta) atorvastatin 20 mg tablet 20 mg PO DAILY #30 tabs 11/17/24 0 11/26/24 Rx diphenhydramine HCl 25 mg capsule 25 mg PO QHS PRN 11/26/24 5 History (Benadryl) Ejection fraction %: 60 Have you fallen in the past year?: No PFSH Medical History (Reviewed 11/26/24 @ 15:56 by Danyell Quintero GENERAL PEDIATRICIAN, GENERAL PEDIATRICIAN-C) Essential hypertension Hyperlipidemia Asthma Lightheadedness Syncope Sciatica History of back problems Arthritis Surgical History (Reviewed 11/26/24 @ 15:56 by Danyell Quintero GENERAL PEDIATRICIAN, GENERAL PEDIATRICIAN-C) History of repair of ACL History of colonoscopy Family History Aunt Breast cancer Mother Breast cancer Father Cancer Lung Cancer Grandfather Hypertension Grandmother Hypertension Social History Smoking Status: Former smoker quit date: 06/09/87 alcohol intake: current substance use type: other details: THC Gummies ROS Const Const: Negative for fatigue, weakness, headache(s) or frequent falls Eyes Eyes: Negative for blurry vision ENT ENT: Positive for dizziness; Negative for headache(s) or Nosebleed/epistaxis Cardio Chest Pain: No Palpitations: No Edema: None Muscle aches with walking: None Resp Respiratory: Negative for SOB with activity, SOB at rest or SOB orthopnea SOB lying down GI GI: Negative nausea, vomiting, heartburn, bright, red blood in stools or black,tarry stools : Negative for hematuria Neuro Neuro: Positive for dizziness, lightheadedness and syncope (twice in the past two years); Negative for near syncope, frequent falls, headache(s), weakness or blurry vision Endo Endo: Negative for fatigue Cardiology Exam Const Appearance: cooperative, comfortable and no acute distress Nutritional Appearance: well nourished and obese Orientati (more content not included)... Normal [facility] Chest PA and Lateralon 11-26 Chest PA and Lateral [facility] Imaging Services [address] [place], [place] [id number] Chest PA and Lateral MR#: [id number] Acct: [id number] Name: DEMETRIUS PENA Rep #: [id number] : 1965 M 59 From: Sofia lacy MD PCP: Dr. Luis Carter MD Status: PRE [facility] [place] Study: Chest PA and Lateral Date of Exam: 11/26/24 Exam# [id number] Ordering Dr: Danyell Quintero NP GENERAL PEDIATRICIAN- C PROCEDURE: CHEST PA AND LATERAL 11/26/2024 REASON FOR EXAM: PACEMAKER INSERTION TECHNIQUE: CHEST PA AND LATERAL COMPARISON: None. FINDINGS: The lungs are expanded. There is no demonstrated parenchymal abnormality. There is no demonstrated pleural abnormality. Normal heart and pericardium. Normal mediastinum and jennyfer. Normal visualized pulmonary arteries. Normal visualized aortic arch and descending thoracic aorta. Normal visualized thoracic spine. Normal visualized ribs, clavicles, and shoulders. There is no demonstrated abnormality of the visualized soft tissue structures of the upper abdomen. RAD/Chest PA and Lateral IMPRESSION: No evidence for acute abnormality. Reading Location: [place] [address] CC: GENERAL PEDIATRICIAN-Percy Quintero; Dr. Luis Carter MD Extension Associate: Signed Normal [facility] Prothrombin Time w/INRon INR Coag (PPP) [Relative time] 0.9 {INR} Normal [facility] Comment on above: Performed By: #### L 501.9520, L100.0500, L300.3900, L500.2500, L400.0001 ####[facility] [address] [place], [address] PT Coag (PPP) [Time] 12.2 s Normal 11.7-14.9 [facility] Comment on above: Performed By: #### L 501.9520, L100.0500, L300.3900, L500.2500, L400.0001 ####[facility] [address] [facility] [place], [address] Thyroid Stim Hormone (TSH)on 11-26-2024 TSH 1.110 uIU/mL Normal 0.300-4.200 [facility] Comment on above: Performed By: #### L 501.9520, L100.0500, L300.3900, L500.2500, L400.0001 ####[facility] [address] [place], [address] Urinalysis, Completeon 11-26 RBC 0-5 SEEN Normal 0-5 [facility] Comment on above: Order Comment: COLLE CTOR TO SPECIFY Performed By: #### L 501.9520, L100.0500, L300.3900, L500.2500, L400.0001 ####[facility] [address] [place], [address] BACTERIA 0 SEEN Normal None Seen [facility] Comment on above: Order Comment: COLLE CTOR TO SPECIFY Performed By: #### L 501.9520, L100.0500, L300.3900, L500.2500, L400.0001 ####[facility] [address] [place], [address] EPI,SQUAMOUS 0 SEEN Normal 0-5 [facility] Comment on above: Order Comment: COLLE CTOR TO SPECIFY Performed By: #### L 501.9520, L100.0500, L300.3900, L500.2500, L400.0001 ####[facility] [address] [place], [address] Mucus Ql (Urine sed) 0 SEEN Normal [facility] Comment on above: Order Comment: COLLE CTOR TO SPECIFY Performed By: #### L 501.9520, L100.0500, L300.3900, L500.2500, L400.0001 ####[facility] [address] [place], [address] WBC 0 SEEN Normal 0-5 [facility] Comment on above: Order Comment: COLLE CTOR TO SPECIFY Performed By: #### L 501.9520, L100.0500, L300.3900, L500.2500, L400.0001 ####[facility] [address] [place], [address] Anion gap in Serum or Plasma Ordered By: August Oconnor on 11-16-2024 Anion gap [Moles/Vol] 10 mmol/L 5-15 [facility] BUN/creatinine ratioOrdered By: August Oconnor on 11-16-2024 Urea nitrogen/Creatinine [Mass ratio] 18.6 mg/mg 10- [facility] Bilirubin, totalOrdered By: August Oconnor on 11-16-2024 Bilirubin [Mass/Vol] 0.32 mg/dL 0.00-1.30 [facility] Calculated very low density lipoprotein (VLDL) cholesterol measurementOrdered By: August Oconnor on 11-16-2024 Calculated very low density lipoprotein (VLDL) cholesterol measurement 37 mg/dL - [facility] Carbon dioxide, total [Moles /volume] in Central venous bloodOrdered By: August Oconnor on 11-16-2024 CO2 [Moles/Vol] 27.9 mmol/L 21.0-32.0 [facility] Chloride assayOrdered By: Jacobo Oconnor on 11-16-2024 Chloride [Moles/Vol] 102 mmol/L 98-108 [facility] Comprehensive Metabolic Prof ilon 11-16-2024 Albumin [Mass/Vol] 4.3 g/dL Normal 3.4-4.8 [facility] Comment on above: Performed By: #### L 500.4100, L500.4050 #### [facility] [address] [place], [address] Albumin/Globulin [Mass ratio] 1.3 {ratio} Normal 0.9-2.4 [facility] Comment on above: Performed By: #### L 500.4100, L500.4050 #### [facility] [address] [place], [address] ALK PHOS 57 U/L Normal 40-129 [facility] Comment on above: Performed By: #### L 500.4100, L500.4050 #### [facility] [address] [place], [address] ALT [Catalytic activity/Vol] 23 U/L Normal <=46 [facility] Comment on above: Performed By: #### L 500.4100, L500.4050 #### [facility] [address] [place], [address] AST [Catalytic activity/Vol] 23 U/L Normal <=37 [facility] Comment on above: Performed By: #### L 500.4100, L500.4050 #### [facility] [address] [place], [address] Bilirubin [Mass/Vol] 0.32 mg/dL Normal 0.00-1.30 [facility] Comment on above: Performed By: #### L 500.4100, L500.4050 #### [facility] [address] [place], [address] BUN/CRE 18.6 RATIO Normal 10-20 [facility] Comment on above: Performed By: #### L 500.4100, L500.4050 #### [facility] [address] [place], [address] Calcium [Mass/Vol] 9.3 mg/dL Normal 7.6-11.0 [facility] Comment on above: Performed By: #### L 500.4100, L500.4050 #### [facility] [address] [place], [address] Chloride [Moles/Vol] 102 mmol/L Normal 98-108 [facility] Comment on above: Performed By: #### L 500.4100, L500.4050 #### [facility] [address] [place], [address] CO2 [Moles/Vol] 27.9 mmol/L Normal 21.0-32.0 [facility] Comment on above: Performed By: #### L 500.4100, L500.4050 #### [facility] [address] [place], [address] Creatinine [Mass/Vol] 1.02 mg/dL Normal 0.70-1.20 [facility] Comment on above: Performed By: #### L 500.4100, L500.4050 #### [facility] [address] [place], [address] GAP 10 Normal 5-15 [facility] Comment on above: Performed By: #### L 500.4100, L500.4050 #### [facility] [address] [place], [address] GFR/1.73 sq M.predicted among non-blacks MDRD (S/P/Bld) [Vol rate/Area] 84 mL/min/{1.73_m2} Normal >60 [facility] Comment on above: Result Comment: mL/m in/1.73m2 CKD-EPI Creatinine Equation (2020) Performed By: #### L 500.4100, L500.4050 #### [facility] [address] [place], [address] Globulin (S) [Mass/Vol] 3.2 g/dL Normal 2.2-4.2 [facility] Comment on above: Performed By: #### L 500.4100, L500.4050 #### [facility] [address] [place], [address] Glucose [Mass/Vol] 118 mg/dL High 70-99 [facility] Comment on above: Performed By: #### L 500.4100, L500.4050 #### [facility] [address] [place], [address] Potassium [Moles/Vol] 4.5 mmol/L Normal 3.3-5.1 [facility] Comment on above: Performed By: #### L 500.4100, L500.4050 #### [facility] [address] [place], [address] Sodium [Moles/Vol] 139 mmol/L Normal 133-145 [facility] Comment on above: Performed By: #### L 500.4100, L500.4050 #### [facility] [address] [place], [address] T PROT 7.5 g/dL Normal 5.9-8.4 [facility] Comment on above: Performed By: #### L 500.4100, L500.4050 #### [facility] [address] [place], [address] Urea nitrogen [Mass/Vol] 19 mg/dL Normal 4-19 [facility] Comment on above: Performed By: #### L 500.4100, L500.4050 #### [facility] [address] [place], [address] Glomerular filtration rate ( GFR) estimation/1.73 sq m using serum, plasma, or whole bOrdered By: August Oconnor on 11-16-2024 GFR/1.73 sq M.predicted among non-blacks MDRD (S/P/Bld) [Vol rate/Area] 84 mL/min/{1.73_m2} >60 [facility] Comment on above: mL/min/1.73m2 CKD-EP I Creatinine Equation (2020) LDL calc ser/plasOrdered By: August Oconnor on 11-16-2024 Cholesterol in LDL [Mass/Vol] 180 mg/dL [facility] Comment on above: Itarmwtetp=871-628 m g/dL & Higher Siau=140 mg/dL or greater Laboratory - Chemistry and C hemistry - challengeOrdered By: August Oconnor on 11-16-2024 AST [Catalytic activity/Vol] 23 U/L <38 [facility] Lipid Profileon 11-16-2024 CHOL:HDL 5.19 Normal [facility] Comment on above: Performed By: #### L 500.4100, L500.4050 #### [facility] [address] [place], [address] Cholesterol [Mass/Vol] 269 mg/dL High <=200 [facility] Comment on above: Result Comment: Chol esterol level, Desirable <200 mg/dL Borderline high cholesterol 200-239 mg/dL High cholesterol >=240 mg/dL Recommendations of the NCEP Adult Treatment Panel for the following risk-cutoff thresholds for the [place] population. Performed By: #### L 500.4100, L500.4050 #### [facility] [address] [place], [address] Cholesterol in HDL [Mass/Vol] 52 mg/dL Normal [facility] Comment on above: Result Comment: Giovanna onal Cholesterol Education Program (NCEP) guidelines: <40 mg/dL: Low HDL-cholesterol (major risk factor for CHD) >= 60 mg/dL: High HDL-cholesterol (negative risk factor for CHD) HDL-cholesterol is affected by a number of factors, e.g. smoking, exercise, hormones, sex and age. Performed By: #### L 500.4100, L500.4050 #### [facility] [address] [place], [address] Cholesterol in LDL [Mass/Vol] 180 mg/dL Normal [facility] Comment on above: Result Comment: Bord tjiqcz=772-178 mg/dL Higher Vtjp=578 mg/dL or greater Performed By: #### L 500.4100, L500.4050 #### [facility] [address] [place], [address] Cholesterol in VLDL [Mass/Vol] 37 mg/dL Normal 5-40 [facility] Comment on above: Performed By: #### L 500.4100, L500.4050 #### [facility] [address] [place], [address] Triglyceride [Mass/Vol] 185 mg/dL Normal [facility] Comment on above: Result Comment: The drugs N-Acetylcysteine and Metamizole may falsely depress this assay. Normal range: <150 mg/dL Borderline High: 150-199 mg/dL High: 200-499 mg/dL Very High: >500 mg/dL Performed By: #### L 500.4100, L500.4050 #### [facility] [address] [place], [address] Potassium measurement (mass/ volume)Ordered By: August Oconnor on 11-16-2024 Potassium (Unsp spec) [Mass/Vol] 4.5 mmol/L 3.3-5.1 [facility] Screening total cholesterol/ high density lipoprotein (HDL) cholesterol ratioOrdered By: August Oconnor on 11-16-2024 Cholesterol.total/Cholest reva in HDL [Mass ratio] 5.19 {ratio} [facility] Serum creatinine measurement (mass/volume)Ordered By: August Oconnor on 11-16-2024 Creatinine [Mass/Vol] 1.02 mg/dL 0.70-1.20 [facility] Serum globulin measurementOr dered By: August Oconnor on 11-16-2024 Globulin (S) [Mass/Vol] 3.2 g/dL 2.2-4.2 [facility] Serum glucose measurement (m ass/volume)Ordered By: August Oconnor on 11-16-2024 Glucose [Mass/Vol] 118 mg/dL High 70-99 [facility] Serum or plasma alanine sexton otransferase (ALT) measurementOrdered By: August Oconnor on 11-16-2024 ALT [Catalytic activity/Vol] 23 U/L <47 [facility] Serum or plasma albumin nima urement (mass/volume)Ordered By: August Oconnor on 11-16-2024 Albumin [Mass/Vol] 4.3 g/dL 3.4-4.8 [facility] Serum or plasma albumin/glob ulin mass ratioOrdered By: August Oconnor on 11-16-2024 Albumin/Globulin [Mass ratio] 1.3 {ratio} 0.9-2.4 [facility] Serum or plasma alkaline kamini sphatase measurementOrdered By: August Oconnor on 06-10-2025 ALP [Catalytic activity/Vol] 57 U/L 40-129 [facility] Serum or plasma calcium nima urement (mass/volume)Ordered By: August Oconnor on 11-16-2024 Calcium [Mass/Vol] 9.3 mg/dL 7.6-11.0 [facility] Serum or plasma cholesterol in HDL measurement (mass/volume)Ordered By: August Oconnor on 11-16-2024 Cholesterol in HDL [Mass/Vol] 52 mg/dL >40 [facility] Comment on above: National Cholesterol Education Program (NCEP) guidelines:<40 mg/dL: Low HDL-cholesterol (major risk factor for CHD)>= 60 mg/dL: High HDL-cholesterol (negative risk factor for CHD)HDL-cholesterol is affected by a number of factors, e.g. smoking, exercise, hormones, sex and age. Serum or plasma cholesterol measurement (mass/volume)Ordered By: August Oconnor on 11-16-2024 Cholesterol [Mass/Vol] 269 mg/dL High <201 [facility] Comment on above: Cholesterol level, D esirable <200 mg/dLBorderline high cholesterol 200-239 mg/dLHigh cholesterol >=240 mg/dLRecommendations of the NCEP Adult Treatment Panel for the following risk-cutoff thresholds for the [place] population. Serum or plasma urea nitroge n measurement (mass/volume)Ordered By: August Oconnor on 11-16-2024 Urea nitrogen [Mass/Vol] 19 mg/dL 4-19 [facility] Sodium levelOrdered By: Zack Oconnor on 11-16-2024 Sodium [Moles/Vol] 139 mmol/L 133-145 [facility] Total proteinOrdered By: Seth Oconnor on 11-16-2024 Protein [Mass/Vol] 7.5 g/dL 5.9-8.4 [facility] Triglycerides measurementOrd ered By: August Oconnor on 11-16-2024 Triglyceride [Mass/Vol] 185 mg/dL <199 [facility] Comment on above: The drugs N-Acetylcy steine and Metamizole may falsely depress this assay. Normal range: <150 mg/dLBorderline High: 150-199 mg/dLHigh: 200-499 mg/dLVery High: >500 mg/dL Cardiology Visit Reporton Cardiology Visit Report [facility] [address] [place] [address] OFFICE VISIT Date of Service: 10/20/24 MR#: [id number] Acct: [id number] Name: DEMETRIUS PENA Rep #: [id number] : 1965 Provider: Dr. 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 Normal [facility] Duplex ultrasound of carotid artery reportOrdered By: Eriberto Heller on 09-12-2024 Study report [facility] [address] [place] [address] Carotid Duplex Ultrasound 09/10/24 1440 MR#: [id number] Acct: [id number] Name: DEMETRIUS PENA Rep #:[id number] : 1965 58 From: Eriberto Goins Attending Dr: Dr. Luis Carter MD Status: REG CLI Ordering Dr: Luis Carter MD Date: 10/01 Location: [facility] Sex: M C Admitted: Reason For Study [...] the left vertebral artery. Procedure Carotid Duplex 80928. This is a Carotid Duplex examination using [...] ~ Date Dictated: 09/10/24 1440 Date Transcribed: 09/12/24 133 Extension Associate: Signed [facility] Work Phone: Carotid Duplex Ultrasoundon 09-10-2024 Carotid Duplex Ultrasound [facility] [address] [place] [address] Carotid Duplex Ultrasound 09/10/24 1440 MR#: [id number] Acct: [id number] Name: DEMETRIUS PENA Rep #: [id number] : 1965 58 From: Eriberto Heller MD [...] the left vertebral artery. Procedure Carotid Duplex 23408. This is a Carotid Duplex examination using [...] By: Nayeli Childers RVT 09/12/24 1338 Date Eriberto Heller MD CC: Dr. Luis Carter MD Date Dictated: 09/10/24 1440 Date Transcribed: 09/12/24 1338 Extension Associate: Signed Normal [facility] Echo Completeon 09-10-2024 Echo Complete [facility] [address] [place] [address] Echo Complete 09/10/24 1412 MR#: [id number] Acct: [id number] Name: DEMETRIUS PENA Rep #: [id number] : 1965 58 From: George Mann MD Attending Dr: Dr. Luis Carter MD Status: REG I Ordering Dr: Luis Carter MD Date: 09/10/24 Location: [facility] Sex: M C Admitted: Reason For Study [...] Referring Physician: Luis Carter Chi Performed By: Kmaila Mitchell RDCS 09/10/24 1558 Date George Mann MD CC: Dr. Luis Carter MD Date Dictated: 09/10/241411 Date Transcribed: 09/10/24 1558 Extension Associate: Signed Normal [facility] Echocardiogram study reportO rdered By: George Mann on 09-10-2024 Study report [facility] [address] [place] [address] Echo Complete 09/10/24 141 MR#: [id number] Acct: [id number] Name: DEMETRIUS PENA Rep #:[id number] : 1965 58 From: George Goins Attending Dr: Dr. Luis Carter MD Status: REG CLI Ordering Dr: Luis Carter MD Date: 10/01 Location: [facility] Sex: M C Admitted: Reason For Study [...] Date Dictated: 09/10/24 1412 Date Transcribed: 09/10/24 1558 Extension Associate: Signed [facility] Work Phone: Hemoglobin A1con 08-18-2024 HbA1c (Bld) [Mass fraction] 6.1 % Normal <=5.6 [facility] Comment on above: Order Comment: ADD O N FROM 08/17/24 H209 Performed By: #### L 500.4050, L100.0100, L501.9985 #### [facility] [address] [place], [address] Absolute lymphocyte countOrd ered By: Luis Carter on 08-17-2024 Lymphocytes Auto (Unsp spec) [#/Vol] 1.42 10*3/uL 0.83-4.51 [facility] Absolute neutrophil countOrd ered By: Luis Carter on 08-17-2024 Neutrophils (Bld) [#/Vol] 3.9 10*3/uL 2.0-7.7 [facility] Anion gap in Serum or Plasma Ordered By: Luis Carter on 08-17-2024 Anion gap [Moles/Vol] 12 mmol/L 5- [facility] Automated lymphocyte count a s percentage of total leukocytesOrdered By: Luis Juliane on 08-17-2024 Lymphocytes/100 WBC Auto (Unsp spec) 21.9 % - [facility] BUN/creatinine ratioOrdered By: [facility] on 08-17-2024 Urea nitrogen/Creatinine [Mass ratio] 18.6 mg/mg - [facility] Basophil percentageOrdered B y: Luis Juliane on 08-17-2024 Basophils/100 WBC (Bld) 0.9 % 0-1 [facility] Bilirubin, totalOrdered By: Luis Carter on 08-17-2024 Bilirubin [Mass/Vol] 0.43 mg/dL 0.00-1.30 [facility] CBC W/Diff, Automatedon 08-07 Absolute Lymph 1.42 X10 3/uL Normal 0.83-4.51 [facility] Comment on above: Performed By: #### L 500.4050, L100.0100, L501.9985 #### [facility] [address] [place], [address] Absolute Neut 3.9 X10 3/uL Normal 2.0-7.7 [facility] Comment on above: Performed By: #### L 500.4050, L100.0100, L501.9985 #### [facility] [address] [place], [address] Basophils/100 WBC (Bld) 0.9 % Normal 0-1 [facility] Comment on above: Performed By: #### L 500.4050, L100.0100, L501.9985 #### [facility] [address] [place], [address] Eosinophils/100 WBC (Bld) 9.2 % High 0-5 [facility] Comment on above: Performed By: #### L 500.4050, L100.0100, L501.9985 #### [facility] [address] [place], [address] Erythrocyte distribution width (RBC) [Ratio] 13.0 % Normal 11.6-14.6 [facility] Comment on above: Performed By: #### L 500.4050, L100.0100, L501.9985 #### [facility] [address] [place], [address] Hematocrit (Bld) [Volume fraction] 43.3 % Normal 40-54 [facility] Comment on above: Performed By: #### L 500.4050, L100.0100, L501.9985 #### [facility] [address] [place], [address] Hemoglobin (Bld) [Mass/Vol] 14.5 g/dL Normal 13.0-16.5 [facility] Comment on above: Performed By: #### L 500.4050, L100.0100, L501.9985 #### [facility] [address] [place], [address] IG% 0.200 Normal 0.0-0.9 [facility] Comment on above: Result Comment: IG% - Immature Granulocytes (promyelocytes, myelocytes and metamyelocytes) > 1% indicates that a LEFT SHIFT is Present. Performed By: #### L 500.4050, L100.0100, L501.9985 #### [facility] [address] [place], [address] Lymphocytes/100 WBC (Bld) 21.9 % Normal 19-41 [facility] Comment on above: Performed By: #### L 500.4050, L100.0100, L501.9985 #### [facility] [address] [place], [address] MCH (RBC) [Entitic mass] 30.9 pg Normal 27.0-32.0 [facility] Comment on above: Performed By: #### L 500.4050, L100.0100, L501.9985 #### [facility] [address] [place], [address] MCHC (RBC) [Mass/Vol] 33.5 g/dL Normal 32-36 [facility] Comment on above: Performed By: #### L 500.4050, L100.0100, L501.9985 #### [facility] [address] [place], [address] MCV (RBC) [Entitic vol] 92.3 fL Normal 80-94 [facility] Comment on above: Performed By: #### L 500.4050, L100.0100, L501.9985 #### [facility] [address] [place], [address] Monocytes/100 WBC (Bld) 7.2 % Normal 0-10 [facility] Comment on above: Performed By: #### L 500.4050, L100.0100, L501.9985 #### [facility] [address] [place], [address] Neutrophils/100 WBC (Bld) 60.6 % Normal 47-70 [facility] Comment on above: Performed By: #### L 500.4050, L100.0100, L501.9985 #### [facility] [address] [place], [address] Nucleated RBC (Bld) [#/Vol] 0 10*3/uL Normal 0-5 [facility] Comment on above: Performed By: #### L 500.4050, L100.0100, L501.9985 #### [facility] [address] [place], [address] Platelet mean volume (Bld) [Entitic vol] 8.9 fL Normal 6.2-12.0 [facility] Comment on above: Performed By: #### L 500.4050, L100.0100, L501.9985 #### [facility] [address] [place], [address] Platelets (Bld) [#/Vol] 305 10*3/uL Normal 150-450 [facility] Comment on above: Performed By: #### L 500.4050, L100.0100, L501.9985 #### [facility] [address] [place], [address] RBC (Bld) [#/Vol] 4.69 10*6/uL Normal 4.6-6.2 [facility] Comment on above: Performed By: #### L 500.4050, L100.0100, L501.9985 #### [facility] [address] [place], [address] RDW SD 43.9 fl Normal 35.1-43.9 [facility] Comment on above: Performed By: #### L 500.4050, L100.0100, L501.9985 #### [facility] [address] [place], [address] WBC (Bld) [#/Vol] 6.5 10*3/uL Normal 4.4-11.0 [facility] Comment on above: Performed By: #### L 500.4050, L100.0100, L501.9985 #### [facility] [address] [place], [address] Carbon dioxide, total [Moles /volume] in Central venous bloodOrdered By: Luis Carter on 08-17-2024 CO2 [Moles/Vol] 25.8 mmol/L 21.0-32.0 [facility] Chloride assayOrdered By: Nadeem Carter on 08-17-2024 Chloride [Moles/Vol] 100 mmol/L 98-108 [facility] Comprehensive Metabolic Prof ilon 08-17-2024 Albumin [Mass/Vol] 4.5 g/dL Normal 3.5-5.0 [facility] Comment on above: Performed By: #### L 500.4050, L100.0100, L501.9985 #### [facility] [address] [place], [address] Albumin/Globulin [Mass ratio] 1.3 {ratio} Normal 0.9-2.4 [facility] Comment on above: Performed By: #### L 500.4050, L100.0100, L501.9985 #### [facility] [address] [place], [address] ALK PHOS 59 U/L Normal 40-129 [facility] Comment on above: Performed By: #### L 500.4050, L100.0100, L501.9985 #### [facility] [address] [place], [address] ALT [Catalytic activity/Vol] 24 U/L Normal <=46 [facility] Comment on above: Performed By: #### L 500.4050, L100.0100, L501.9985 #### [facility] [address] [place], [address] AST [Catalytic activity/Vol] 23 U/L Normal <=37 [facility] Comment on above: Performed By: #### L 500.4050, L100.0100, L501.9985 #### [facility] [address] [place], [address] Bilirubin [Mass/Vol] 0.43 mg/dL Normal 0.00-1.30 [facility] Comment on above: Performed By: #### L 500.4050, L100.0100, L501.9985 #### [facility] [address] [place], [address] BUN/CRE 18.6 RATIO Normal 10-20 [facility] Comment on above: Performed By: #### L 500.4050, L100.0100, L501.9985 #### [facility] [address] [place], [address] Calcium [Mass/Vol] 9.6 mg/dL Normal 7.6-11.0 [facility] Comment on above: Performed By: #### L 500.4050, L100.0100, L501.9985 #### [facility] [address] [place], [address] Chloride [Moles/Vol] 100 mmol/L Normal 98-108 [facility] Comment on above: Performed By: #### L 500.4050, L100.0100, L501.9985 #### [facility] [address] [place], [address] CO2 [Moles/Vol] 25.8 mmol/L Normal 21.0-32.0 [facility] Comment on above: Performed By: #### L 500.4050, L100.0100, L501.9985 #### [facility] [address] [place], [address] Creatinine [Mass/Vol] 0.97 mg/dL Normal 0.70-1.20 [facility] Comment on above: Performed By: #### L 500.4050, L100.0100, L501.9985 #### [facility] [address] [place], [address] GAP 12 Normal 5-15 [facility] Comment on above: Performed By: #### L 500.4050, L100.0100, L501.9985 #### [facility] [address] [place], [address] GFR/1.73 sq M.predicted among non-blacks MDRD (S/P/Bld) [Vol rate/Area] 89 mL/min/{1.73_m2} Normal >60 [facility] Comment on above: Result Comment: mL/m in/1.73m2 CKD-EPI Creatinine Equation (2020) Performed By: #### L 500.4050, L100.0100, L501.9985 #### [facility] [address] [place], [address] Globulin (S) [Mass/Vol] 3.3 g/dL Normal 2.2-4.2 [facility] Comment on above: Performed By: #### L 500.4050, L100.0100, L501.9985 #### [facility] [address] [place], [address] Glucose [Mass/Vol] 157 mg/dL High 70-99 [facility] Comment on above: Performed By: #### L 500.4050, L100.0100, L501.9985 #### [facility] [address] [place], [address] Potassium [Moles/Vol] 4.3 mmol/L Normal 3.3-5.1 [facility] Comment on above: Result Comment: Hemo lysis present, Results??could be affected. ?? Performed By: #### L 500.4050, L100.0100, L501.9985 #### [facility] [address] [place], [address] Sodium [Moles/Vol] 138 mmol/L Normal 133-145 [facility] Comment on above: Performed By: #### L 500.4050, L100.0100, L501.9985 #### [facility] [address] [place], [address] T PROT 7.8 g/dL Normal 5.9-8.4 [facility] Comment on above: Performed By: #### L 500.4050, L100.0100, L501.9985 #### [facility] [address] [place], [address] Urea nitrogen [Mass/Vol] 18 mg/dL Normal 4-19 [facility] Comment on above: Performed By: #### L 500.4050, L100.0100, L501.9985 #### [facility] [address] [place], [address] Eosinophil percentageOrdered By: Luis Carter on 08-17-2024 Eosinophils/100 WBC (Bld) 9.2 % High 0-5 [facility] Erythrocyte distribution wid th ratioOrdered By: Luis Carter on 08-17-2024 Erythrocyte distribution width (RBC) [Ratio] 13.0 % 11.6-14.6 [facility] Erythrocyte distribution wid th standard deviationOrdered By: Luis Carter on 08-17-2024 Erythrocyte distribution width (RBC) [Entitic vol] 43.9 fL 35.1-43.9 [facility] Erythrocyte distribution width (RBC) [Ratio] 43.9 fl 35.1-43.9 [facility] GFR/1.73 sq M.predicted nory g non-blacks MDRD (S/P/Bld) [Vol rate/Area]Ordered By: Luis Carter 08-17-2024 Estimated GFR (MDRD) Non-Af Amer 89 >60 [facility] Comment on above: mL/min/1.73m2 CKD-EP I Creatinine Equation (2020) Glomerular filtration rate ( GFR) estimation/1.73 sq m using serum, plasma, or whole bOrdered By: Luis Carter on 08-17-2024 GFR/1.73 sq M.predicted among non-blacks MDRD (S/P/Bld) [Vol rate/Area] 89 mL/min/{1.73_m2} >60 [facility] Comment on above: mL/min/1.73m2 CKD-EP I Creatinine Equation (2020) Hematocrit Auto (Bld) [Volum e fraction]Ordered By: Luis Carter on 03-11-2025 Hematocrit (Bld) [Volume fraction] 43.3 % 40-54 [facility] Hemoglobin A1c percentageOrd ered By: Luis Carter on 08-17-2024 HbA1c (Bld) [Mass fraction] 6.1 % >5.7 [facility] Hemoglobin measurementOrdere d By: Luis Carter on 08-17-2024 Hemoglobin (Bld) [Mass/Vol] 14.5 g/dL 13.0-16.5 [facility] Immature granulocytes/100 WB C Auto (Bld)Ordered By: Luis Carter on 08-17-2024 Immature granulocytes/100 WBC (Bld) 0.200 % 0.0-0.9 [facility] Comment on above: IG% - Immature Granu locytes (promyelocytes, myelocytes and metamyelocytes) > 1% indicates that a LEFT SHIFT is Present. Laboratory - Chemistry and C hemistry - challengeOrdered By: Luis Carter on 08-17-2024 AST [Catalytic activity/Vol] 23 U/L <38 [facility] Lymphocytes Auto (Unsp spec) [#/Vol]Ordered By: Luis Carter on 08-17-2024 Lymphocytes (Bld) [#/Vol] 1.42 10*3/uL 0.83-4.5 1 [facility] Lymphocytes/100 WBC Auto (Un sp spec)Ordered By: Luis Carter 08-17-2024 Lymphocytes/100 WBC (Bld) 21.9 % 19-41 [facility] MCV (mean corpuscular volume ) determinationOrdered By: Luis Carter 08-17-2024 MCV (RBC) [Entitic vol] 92.3 fL 80-94 [facility] Mean corpuscular hemoglobin (MCH) determinationOrdered By: Luis Carter 08-17-2024 MCH (RBC) [Entitic mass] 30.9 pg 27.0-32.0 [facility] Mean corpuscular hemoglobin concentration (MCHC) determinationOrdered By: Luis Carter 08-17-2024 MCHC (RBC) [Mass/Vol] 33.5 g/dL 32-36 [facility] Mean platelet volume determi nationOrdered By: Luis Carter 08-17-2024 Platelet mean volume (Bld) [Entitic vol] 8.9 fL 6.2-12.0 [facility] Monocyte percentageOrdered B y: Luis Carter on 08-17-2024 Monocytes/100 WBC (Bld) 7.2 % 0-10 [facility] Neutrophil percentageOrdered By: Luis Carter on 08-17-2024 Neutrophils/100 WBC (Bld) 60.6 % 47-70 [facility] Nucleated red blood cell per centageOrdered By: Luis Carter on 08-17-2024 Nucleated RBC/100 WBC (Bld) [Ratio] 0 % 0-5 [facility] Platelet countOrdered By: Nadeem Carter on 08-17-2024 Platelets (Bld) [#/Vol] 305 10*3/uL 150-450 [facility] Potassium (Unsp spec) [Mass/ Vol]Ordered By: Luis Carter on 08-17-2024 Potassium [Moles/Vol] 4.3 mmol/L 3.3-5.1 [facility] Comment on above: Hemolysis present, R esults could be affected. Potassium measurement (mass/ volume)Ordered By: Luis Carter on 08-17-2024 Potassium (Unsp spec) [Mass/Vol] 4.3 mmol/L 3.3-5.1 [facility] Comment on above: Hemolysis present, R esults could be affected. RBC Auto (Bld) [#/Vol]Ordere d By: Luis Carter on 08-17-2024 RBC (Bld) [#/Vol] 4.69 10*6/uL 4.6-6.2 [facility] Serum creatinine measurement (mass/volume)Ordered By: Luis Carter on 08-17-2024 Creatinine [Mass/Vol] 0.97 mg/dL 0.70-1.20 [facility] Serum globulin measurementOr dered By: Luis Carter on 08-17-2024 Globulin (S) [Mass/Vol] 3.3 g/dL 2.2-4.2 [facility] Serum glucose measurement (m ass/volume)Ordered By: Luis Carter on 08-17-2024 Glucose [Mass/Vol] 157 mg/dL High 70-99 [facility] Serum or plasma alanine sexton otransferase (ALT) measurementOrdered By: Luis Carter on 08-17-2024 ALT [Catalytic activity/Vol] 24 U/L <47 [facility] Serum or plasma albumin nima urement (mass/volume)Ordered By: Luis Carter on 08-17-2024 Albumin [Mass/Vol] 4.5 g/dL 3.5-5.0 [facility] Serum or plasma albumin/glob ulin mass ratioOrdered By: Luis Carter on 08-17-2024 Albumin/Globulin [Mass ratio] 1.3 {ratio} 0.9-2.4 [facility] Serum or plasma alkaline kamini sphatase measurementOrdered By: Lusi Carter on 08-17-2024 ALP [Catalytic activity/Vol] 59 U/L 40-129 [facility] Serum or plasma calcium nima urement (mass/volume)Ordered By: Luis Carter on 08-17-2024 Calcium [Mass/Vol] 9.6 mg/dL 7.6-11.0 [facility] Serum or plasma urea nitroge n measurement (mass/volume)Ordered By: Luis Carter on 08-17-2024 Urea nitrogen [Mass/Vol] 18 mg/dL 4-19 [facility] Sodium levelOrdered By: Luis Carter on 08-17-2024 Sodium [Moles/Vol] 138 mmol/L 133-145 [facility] Total proteinOrdered By: Luis Carter on 08-17-2024 Protein [Mass/Vol] 7.8 g/dL 5.9-8.4 [facility] White blood cell (WBC) count Ordered By: Luis Carter on 08-17-2024 WBC (Bld) [#/Vol] 6.5 10*3/uL 4.4-11.0 [facility] CBC W/Diff, Automatedon 01-08 Absolute Lymph 1.37 X10 3/uL Normal 0.83-4.51 [facility] Comment on above: Performed By: #### L 501.9546, L500.4050, L100.0100, L500.4100, L501.9910 ####[facility] [address] [place], [place], [id number] Absolute Neut 3.1 X10 3/uL Normal 2.0-7.7 [facility] Comment on above: Performed By: #### L 501.9520, L500.4050, L100.0100, L500.4100, L501.9910 ####[facility] [address] [place], [address] Basophils/100 WBC (Bld) 0.9 % Normal 0-1 [facility] Comment on above: Performed By: #### L 501.9520, L500.4050, L100.0100, L500.4100, L501.9910 ####[facility] [address] [place], [address] Eosinophils/100 WBC (Bld) 9.2 % High 0-5 [facility] Comment on above: Performed By: #### L 501.9520, L500.4050, L100.0100, L500.4100, L501.9910 ####[facility] [address] [place], [address] Erythrocyte distribution width (RBC) [Ratio] 12.3 % Normal 11.6-14.6 [facility] Comment on above: Performed By: #### L 501.9520, L500.4050, L100.0100, L500.4100, L501.9910 ####[facility] [address] [place], [address] Hematocrit (Bld) [Volume fraction] 43.9 % Normal 40-54 [facility] Comment on above: Performed By: #### L 501.9520, L500.4050, L100.0100, L500.4100, L501.9910 ####[facility] [address] [place], [address] Hemoglobin (Bld) [Mass/Vol] 14.4 g/dL Normal 13.0-16.5 [facility] Comment on above: Performed By: #### L 501.9520, L500.4050, L100.0100, L500.4100, L501.9910 ####[facility] [address] [place], [address] IG% 0.200 Normal 0.0-0.9 [facility] Comment on above: Result Comment: IG% - Immature Granulocytes (promyelocytes, myelocytes and metamyelocytes) > 1% indicates that a LEFT SHIFT is Present. Performed By: #### L 501.9520, L500.4050, L100.0100, L500.4100, L501.9910 ####[facility] [address] [place], [address] Lymphocytes/100 WBC (Bld) 24.7 % Normal 19-41 [facility] Comment on above: Performed By: #### L 501.9520, L500.4050, L100.0100, L500.4100, L501.9910 ####[facility] [address] [place], [address] MCH (RBC) [Entitic mass] 30.3 pg Normal 27.0-32.0 [facility] Comment on above: Performed By: #### L 501.9520, L500.4050, L100.0100, L500.4100, L501.9910 ####[facility] [address] [place], [address] MCHC (RBC) [Mass/Vol] 32.8 g/dL Normal 32-36 [facility] Comment on above: Performed By: #### L 501.9520, L500.4050, L100.0100, L500.4100, L501.9910 ####[facility] [address] [place], [address] MCV (RBC) [Entitic vol] 92.4 fL Normal 80-94 [facility] Comment on above: Performed By: #### L 501.9520, L500.4050, L100.0100, L500.4100, L501.9910 ####[facility] [address] [place], [address] Monocytes/100 WBC (Bld) 9.5 % Normal 0-10 [facility] Comment on above: Performed By: #### L 501.9520, L500.4050, L100.0100, L500.4100, L501.9910 ####[facility] [address] [place], [address] Neutrophils/100 WBC (Bld) 55.5 % Normal 47-70 [facility] Comment on above: Performed By: #### L 501.9520, L500.4050, L100.0100, L500.4100, L501.9910 ####[facility] [address] [place], [address] Nucleated RBC (Bld) [#/Vol] 0 10*3/uL Normal 0-5 [facility] Comment on above: Performed By: #### L 501.9520, L500.4050, L100.0100, L500.4100, L501.9910 ####[facility] [address] [place], [address] Platelet mean volume (Bld) [Entitic vol] 8.5 fL Normal 6.2-12.0 [facility] Comment on above: Performed By: #### L 501.9520, L500.4050, L100.0100, L500.4100, L501.9910 ####[facility] [address] [place], [address] Platelets (Bld) [#/Vol] 300 10*3/uL Normal 150-450 [facility] Comment on above: Performed By: #### L 501.9520, L500.4050, L100.0100, L500.4100, L501.9910 ####[facility] [address] [place], [address] RBC (Bld) [#/Vol] 4.75 10*6/uL Normal 4.6-6.2 [facility] Comment on above: Performed By: #### L 501.9520, L500.4050, L100.0100, L500.4100, L501.9910 ####[facility] [address] [place], [address] RDW SD 42.0 fl Normal 35.1-43.9 [facility] Comment on above: Performed By: #### L 501.9520, L500.4050, L100.0100, L500.4100, L501.9910 ####[facility] [address] [place], [address] WBC (Bld) [#/Vol] 5.6 10*3/uL Normal 4.4-11.0 [facility] Comment on above: Performed By: #### L 501.9520, L500.4050, L100.0100, L500.4100, L501.9910 ####[facility] [address] [place], [address] Comprehensive Metabolic [facility] 02-02-2024 Albumin [Mass/Vol] 3.7 g/dL Normal 3.2-5.0 [facility] Comment on above: Performed By: #### L 501.9520, L500.4050, L100.0100, L500.4100, L501.9910 ####[facility] [address] [place], [address] Albumin/Globulin [Mass ratio] 0.9 {ratio} Normal 0.9-2.4 [facility] Comment on above: Performed By: #### L 501.9520, L500.4050, L100.0100, L500.4100, L501.9910 ####[facility] [address] [place], [address] ALK P 54 U/L Normal 45-117 [facility] Comment on above: Performed By: #### L 501.9520, L500.4050, L100.0100, L500.4100, L501.9910 ####[facility] [address] [place], [address] ALT [Catalytic activity/Vol] 31 U/L Normal 16-61 [facility] Comment on above: Performed By: #### L 501.9520, L500.4050, L100.0100, L500.4100, L501.9910 ####[facility] [address] [place], [address] AST [Catalytic activity/Vol] 22 U/L Normal 15-37 [facility] Comment on above: Performed By: #### L 501.9520, L500.4050, L100.0100, L500.4100, L501.9910 ####[facility] [address] [place], [address] Bilirubin [Mass/Vol] 0.40 mg/dL Normal 0.20-1.00 [facility] Comment on above: Result Comment: For patients on eltrombopag therapy, use of Dimension [place] TBIL is not recommended. Performed By: #### L 501.9520, L500.4050, L100.0100, L500.4100, L501.9910 ####[facility] [address] [place], [address] BUN/CRE 15.3 RATIO Normal 10-20 [facility] Comment on above: Performed By: #### L 501.9520, L500.4050, L100.0100, L500.4100, L501.9910 ####[facility] [address] [place], [address] CA,Total 9.2 mg/dL Normal 8.5-10.1 [facility] Comment on above: Performed By: #### L 501.9520, L500.4050, L100.0100, L500.4100, L501.9910 ####[facility] [address] [place], [address] Chloride [Moles/Vol] 104 mmol/L Normal 98-107 [facility] Comment on above: Performed By: #### L 501.9520, L500.4050, L100.0100, L500.4100, L501.9910 ####[facility] [address] [place], [address] CO2 [Moles/Vol] 30.0 mmol/L Normal 21.0-32.0 [facility] Comment on above: Performed By: #### L 501.9520, L500.4050, L100.0100, L500.4100, L501.9910 ####[facility] [address] [place], [address] Creatinine [Mass/Vol] 1.11 mg/dL Normal 0.70-1.30 [facility] Comment on above: Result Comment: The validity of the calculated GFR GFRAA in patients over 70 years has not been determined. Clinical correlation is essential. Performed By: #### L 501.9520, L500.4050, L100.0100, L500.4100, L501.9910 ####[facility] [address] [place], [address] EST GFR - AA 87 mL/min Normal >60 [facility] Comment on above: Result Comment: Afri can [place] GFR Calc Performed By: #### L 501.9520, L500.4050, L100.0100, L500.4100, L501.9910 ####[facility] [address] [place], [address] GAP 4 Low 5-15 [facility] Comment on above: Performed By: #### L 501.9520, L500.4050, L100.0100, L500.4100, L501.9910 ####[facility] [address] [place], [address] GFR/1.73 sq M.predicted among non-blacks MDRD (S/P/Bld) [Vol rate/Area] 72 mL/min/{1.73_m2} Normal >60 [facility] Comment on above: Result Comment: Non- GFR Calc Performed By: #### L 501.9520, L500.4050, L100.0100, L500.4100, L501.9910 ####[facility] [address] [place], [address] Globulin (S) [Mass/Vol] 4.1 g/dL Normal 2.2-4.2 [facility] Comment on above: Performed By: #### L 501.9520, L500.4050, L100.0100, L500.4100, L501.9910 ####[facility] [address] [place], [address] Glucose [Mass/Vol] 122 mg/dL High 74-106 [facility] Comment on above: Result Comment: Fast ing Glucose result from 100 to 125 mg/dL suggests IMPAIRED HOMEOSTASIS per A.D.A. criteria. Performed By: #### L 501.9520, L500.4050, L100.0100, L500.4100, L501.9910 ####[facility] [address] [place], [address] Potassium [Moles/Vol] 4.8 mmol/L Normal 3.5-5.1 [facility] Comment on above: Performed By: #### L 501.9520, L500.4050, L100.0100, L500.4100, L501.9910 ####[facility] [address] [place], [address] Sodium [Moles/Vol] 138 mmol/L Normal 136-145 [facility] Comment on above: Performed By: #### L 501.9520, L500.4050, L100.0100, L500.4100, L501.9910 ####[facility] [address] [place], [address] T PROT 7.8 g/dL Normal 6.4-8.2 [facility] Comment on above: Performed By: #### L 501.9520, L500.4050, L100.0100, L500.4100, L501.9910 ####[facility] [address] [place], [address] Urea nitrogen [Mass/Vol] 17 mg/dL Normal 7-18 [facility] Comment on above: Performed By: #### L 501.9520, L500.4050, L100.0100, L500.4100, L501.9910 ####[facility] [address] [place], [address] Lipid Profileon 02-02-2024 Cholesterol [Mass/Vol] 263 mg/dL High 200 [facility] Comment on above: Result Comment: <200 mg/dL Desirable 200-240 mg/dL Borderline >240 mg/dL High Risk Performed By: #### L 501.9520, L500.4050, L100.0100, L500.4100, L501.9910 ####[facility] [address] [place], [address] Cholesterol in HDL [Mass/Vol] 56 mg/dL Normal [facility] Comment on above: Result Comment: The drugs N-Acetylcysteine and Metamizole may falsely depress this assay. Reference Range HDL <40 mg/dL Low HDL Cholesterol HDL >or= 60 mg/dL High HDL Cholesterol Performed By: #### L 501.9520, L500.4050, L100.0100, L500.4100, L501.9910 ####[facility] [address] [place], [address] Cholesterol in LDL [Mass/Vol] 184 mg/dL High 0-130 [facility] Comment on above: Performed By: #### L 501.9520, L500.4050, L100.0100, L500.4100, L501.9910 ####[facility] [address] [place], [address] Cholesterol in VLDL [Mass/Vol] 23 mg/dL Normal 5-40 [facility] Comment on above: Performed By: #### L 501.9520, L500.4050, L100.0100, L500.4100, L501.9910 ####[facility] [address] [place], [address] Triglyceride [Mass/Vol] 115 mg/dL Normal [facility] Comment on above: Result Comment: The drugs N-Acetylcysteine and Metamizole may falsely depress this assay. Serum Triglycerides Reference Interval Normal <150 mg/dL Borderline high 150 - 199 mg/dL High 200 - 499 mg/dL Very High > or = 500 mg/dL Performed By: #### L 501.9520, L500.4050, L100.0100, L500.4100, L501.9910 ####[facility] [address] [place], [address] PSA,Total - Annual Screenon 02-02-2024 PSA,TOT SCREEN 1.22 ng/mL Normal 0.00-4.00 [facility] Comment on above: Result Comment: This test was performed using the TPSA assay method for the [employer] chemistry system. Values obtained with different assay methods cannot be used interchangably. When changing PSA assays in the course of monitoring a patient, additional sequential testing should be carried out to confirm baseline values. Performed By: #### L 501.9520, L500.4050, L100.0100, L500.4100, L501.9910 ####[facility] [address] [place], [address] Thyroid Stim Hormone (TSH)on 02-02-2024 TSH 1.720 uIU/mL Normal 0.358-3.740 [facility] Comment on above: Performed By: #### L 501.9520, L500.4050, L100.0100, L500.4100, L501.9910 ####[facility] [address] [place], [address] Absolute lymphocyte countOrd ered By: Luis Carter on 01-27-2023 Lymphocytes Auto (Unsp spec) [#/Vol] 1.12 10*3/uL 0.83-4.51 [facility] Basophil percentageOrdered B y: Luis Carter on 01-27-2023 Basophils/100 WBC (Bld) 0.5 % 0-1 [facility] Bilirubin [Mass/Vol] 0.60 mg/dL 0.20-1.00 [facility] Comment on above: For patients on eltr ombopag therapy, use of Dimension [place] TBIL is not recommended. Chloride [Moles/Vol] 103 mmol/L 98-107 [facility] Eosinophils/100 WBC (Bld) 5.4 % 0-5 [facility] Glucose [Mass/Vol] 121 mg/dL 74-106 [facility] Comment on above: Fasting Glucose resu lt from 100 to 125 mg/dL suggests IMPAIRED HOMEOSTASIS per A.D.A. criteria. Neutrophils (Bld) [#/Vol] 4.1 10*3/uL 2.0-7.7 [facility] Neutrophils/100 WBC (Bld) 64.7 % 47-70 [facility] Potassium [Moles/Vol] 4.0 mmol/L 3.5-5.1 [facility] Protein [Mass/Vol] 7.6 g/dL 6.4-8.2 [facility] Sodium [Moles/Vol] 136 mmol/L 136-145 [facility] WBC (Bld) [#/Vol] 6.3 10*3/uL 4.4-11.0 [facility] Blood erythrocytes count (nu mber/volume)Ordered By: Luis Carter on 01-27-2023 RBC (Bld) [#/Vol] 4.68 10*6/uL 4.6-6.2 [facility] Blood hemoglobin measurement (mass/volume)Ordered By: Luis Carter on 01-27-2023 Hemoglobin (Bld) [Mass/Vol] 14.2 g/dL 13.0-16.5 [facility] Blood lymphocytes/100 leukoc ytesOrdered By: Luis Carter on 01-27-2023 Lymphocytes/100 WBC (Bld) 17.9 % 19-41 [facility] Blood monocytes/100 leukocyt esOrdered By: Luis Carter on 01-27-2023 Monocytes/100 WBC (Bld) 11.3 % 0-10 [facility] Blood platelet mean volumeOr dered By: Luis Carter on 01-27-2023 Platelet mean volume (Bld) [Entitic vol] 8.9 fL 6.2-12.0 [facility] Determination of erythrocyte mean corpuscular volume (MCV)Ordered By: Luis Carter on 01-27-2023 MCV (RBC) [Entitic vol] 91.7 fL 80-94 [facility] Hematocrit Auto (Bld) [Volum e fraction][facility]: [facility] 01-[facility]23 Hematocrit (Bld) [Volume fraction] 42.9 % 40-54 [facility] Laboratory - Chemistry and C hemistry - challengeOrdered By: Luis Carter on 01-27-2023 ALP [Catalytic activity/Vol] 61 U/L 45-117 [facility] ALT [Catalytic activity/Vol] 36 U/L 16-61 [facility] CO2 [Moles/Vol] 30.0 mmol/L 21.0-32.0 [facility] Globulin (S) [Mass/Vol] 3.9 g/dL 2.2-4.2 [facility] Urea nitrogen/Creatinine [Mass ratio] 16.5 mg/mg 10-20 [facility] Laboratory - Hematology and Cell countsOrdered By: Luis Carter on 01-27-2023 Erythrocyte distribution width (RBC) [Entitic vol] 41.9 fL 35.1-43.9 [facility] Erythrocyte distribution width (RBC) [Ratio] 12.6 % 11.6-14.6 [facility] Immature granulocytes/100 WBC (Bld) 0.200 % 0.0-0.9 [facility] Comment on above: IG% - Immature Granu locytes (promyelocytes, myelocytes and metamyelocytes) > 1% indicates that a LEFT SHIFT is Present. MCH (RBC) [Entitic mass] 30.3 pg 27.0-32.0 [facility] Nucleated RBC/100 WBC (Bld) [Ratio] 0 % 0-5 [facility] MCHC Auto (RBC) [Mass/Vol]Or dered By: Luis Carter on 01-27-2023 MCHC (RBC) [Mass/Vol] 33.1 g/dL 32-36 [facility] No Panel InformationOrdered By: Luis Carter on 01-27-2023 Estimated GFR (MDRD) Amer 95 mL/min >60 [facility] Comment on above: GFR Calc Estimated GFR (MDRD) Non-Af Amer 79 mL/min >60 [facility] Comment on above: Non- GFR Calc Prostate Specific Antigen Screen 1.03 ng/mL 0.00-4.00 [facility] Comment on above: This test was perfor med using the TPSA assay method for the[employer] chemistry system. Values obtained with differentassay methods cannot be used interchangably.When changing PSA assays in the course of monitoring apatient, additional sequential testing should be carriedout to confirm baseline values. Thyroid Stimulating Hormone (TSH) 1.20 uIU/mL 0.358-3.74 [facility] Platelets bldOrdered By: Luis Carter on 01-27-2023 Platelets (Bld) [#/Vol] 302 10*3/uL 150-450 [facility] Serum or plasma albumin nima urement (mass/volume)Ordered By: Luis Carter on 01-27-2023 Albumin [Mass/Vol] 3.7 g/dL 3.2-5.0 [facility] Serum or plasma albumin/glob ulin mass ratioOrdered By: Luis Carter on 01-27-2023 Albumin/Globulin [Mass ratio] 0.9 {ratio} 0.9-2.4 [facility] Serum or plasma calcium nima urement (mass/volume)Ordered By: Luis Carter on 01-27-2023 Calcium [Mass/Vol] 8.9 mg/dL 8.5-10.1 [facility] Serum or plasma creatinine m easurement (mass/volume)Ordered By: Luis Carter on 01-27-2023 Creatinine [Mass/Vol] 1.03 mg/dL 0.70-1.30 [facility] Comment on above: The validity of the calculated GFR & GFRAA in patients over 70 years has not been determined. Clinical correlation is essential. Serum or plasma urea nitroge n measurement (mass/volume)Ordered By: Luis Carter on 01-27-2023 Urea nitrogen [Mass/Vol] 17 mg/dL 7-18 [facility] Thin prep Papanicolaou smear with manual screeningOrdered By: Luis Carter on 01-27-2023 Thin prep Papanicolaou smear with manual screening 21 U/L 15-37 [facility] Thin prep Papanicolaou smear with manual screening 3 5-15 [facility] CNPNon 11-27-2022 CNPN Telephone (INTMWS) ---- DEMETRIUS PENA ([id number]) 1965 M Date Time Provider Department 11/27/22 RODOLFO GUERRERO During your visit today, we recorded the following information about you: Skylar Jonelle 11/27/2022 9:57 AM Signed Pts called to [...] requested return call to arrange appt. Maddison Gale, RN 11/27/2022 4:38 PM Signed Pt called [...] Fully Assessed Reason for Visit: Patient Question [2977] Prescriptions as of 12/18/2022 - gabapentin (NEURONTIN) 300 mg capsule Take 300 mg by mouth once daily. - diclofenac, EC, (VOLTAREN) 75 mg EC tablet Take 75 mg by mouth once daily. - metaxalone (SKELAXIN) 800 mg tablet Take 800 mg by mouth once daily. Problem List As Of Date: 11/27/2022 (None) Encounter Status:Closed by MADDISON GALE on 11/27/22 [facility] CNNURSEon 06-28-2022 CNNURSE Nurse Visit (PODIWS) ---- DEMETRIUS PENA ([id number]) 1965 M Date Time Provider Department 06/28/22 2:00 PM NURSE/[facility] PODIWS During your visit today, we [...] Status:Closed by CARRI HUNT on 06/28/22 Normal [place] Absolute lymphocyte counton 01-24-2022 Lymphocytes Auto (Unsp spec) [#/Vol] 1.21 10*3/uL 0.83-4.51 [facility] Work Phone: Basophil percentageon 2021 Basophils/100 WBC (Bld) 0.7 % 0-1 [facility] Work Phone: [phone] Bilirubin [Mass/Vol] 0.40 mg/dL 0.20-1.00 [facility] Work Phone: [phone] Comment on above: For patients on eltr ombopag therapy, use of Dimension [place] TBIL is not recommended. Chloride [Moles/Vol] 103 mmol/L 98-107 [facility] Work Phone: Eosinophils/100 WBC (Bld) 4.3 % 0-5 [facility] Work Phone: [phone] Glucose [Mass/Vol] 89 mg/dL 74-106 [facility] Work Phone: [phone] Neutrophils (Bld) [#/Vol] 3.5 10*3/uL 2.0-7.7 [facility] Work Phone: [phone] Neutrophils/100 WBC (Bld) 62.6 % 47-70 [facility] Work Phone: [phone] Potassium [Moles/Vol] 4.5 mmol/L 3.5-5.1 [facility] Work Phone: Protein [Mass/Vol] 7.4 g/dL 6.4-8.2 [facility] Work Phone: Sodium [Moles/Vol] 140 mmol/L 136-145 [facility] Work Phone: WBC (Bld) [#/Vol] 5.5 10*3/uL 4.4-11.0 [facility] Work Phone: Blood erythrocytes count (nu mber/volume)on 01-24-2022 RBC (Bld) [#/Vol] 4.48 10*6/uL 4.6-6.2 [facility] Work Phone: Blood hemoglobin measurement (mass/volume)on 01-24-2022 Hemoglobin (Bld) [Mass/Vol] 14.0 g/dL 13.0-16.5 [facility] Work Phone: Blood lymphocytes/100 leukoc yteson 01-24-2022 Lymphocytes/100 WBC (Bld) 21.9 % 19-41 [facility] Work Phone: [phone] Blood monocytes/100 leukocyt eson 01-24-2022 Monocytes/100 WBC (Bld) 10.3 % 0-10 [facility] Work Phone: Blood platelet mean volumeon 01-24-2022 Platelet mean volume (Bld) [Entitic vol] 9.0 fL 6.2-12.0 [facility] Work Phone: Determination of erythrocyte mean corpuscular volume (MCV)on 01-24-2022 MCV (RBC) [Entitic vol] 94.0 fL 80-94 [facility] Work Phone: Hematocrit Auto (Bld) [Volum e fraction]on 01-24-2022 Hematocrit (Bld) [Volume fraction] 42.1 % 40-54 [facility] Work Phone: Laboratory - Chemistry and C hemistry - challengeon 01-24-2022 ALP [Catalytic activity/Vol] 53 U/L 45-117 [facility] Work Phone: ALT [Catalytic activity/Vol] 41 U/L 16-61 [facility] Work Phone: CO2 [Moles/Vol] 32.0 mmol/L 21.0-32.0 [facility] Work Phone: Globulin (S) [Mass/Vol] 3.7 g/dL 2.2-4.2 [facility] Work Phone: Urea nitrogen/Creatinine [Mass ratio] 18.3 mg/mg 10-20 [facility] Work Phone: Laboratory - Hematology and Cell countson 01-24-2022 Erythrocyte distribution width (RBC) [Entitic vol] 41.7 fL 35.1-43.9 [facility] Work Phone: Erythrocyte distribution width (RBC) [Ratio] 12.0 % 11.6-14.6 [facility] Work Phone: Immature granulocytes/100 WBC (Bld) 0.200 % 0.0-0.9 [facility] Work Phone: Comment on above: IG% - Immature Granu locytes (promyelocytes, myelocytes and metamyelocytes) > 1% indicates that a LEFT SHIFT is Present. MCH (RBC) [Entitic mass] 31.3 pg 27.0-32.0 [facility] Work Phone: Nucleated RBC/100 WBC (Bld) [Ratio] 0 % 0-5 [facility] Work Phone: MCHC Auto (RBC) [Mass/Vol]on 01-24-2022 MCHC (RBC) [Mass/Vol] 33.3 g/dL 32-36 [facility] Work Phone: No Panel Informationon 01-24 Estimated GFR (MDRD) Amer 84 mL/min >60 [facility] Work Phone: Comment on above: GFR Calc Estimated GFR (MDRD) Non-Af Amer 70 mL/min >60 [facility] Work Phone: Comment on above: Non- GFR Calc Prostate Specific Antigen Screen 1.30 ng/mL 0.00-4.00 [facility] Work Phone: Comment on above: This test was perfor med using the TPSA assay method for [employer] chemistry system. Values obtained with differentassay methods cannot be used interchangably.When changing PSA assays in the course of monitoring apatient, additional sequential testing should be carriedout to confirm baseline values. Thyroid Stimulating Hormone (TSH) 1.23 uIU/mL 0.358-3.74 [facility] Work Phone: Platelets bldon 01-24-2022 Platelets (Bld) [#/Vol] 307 10*3/uL 150-450 [facility] Work Phone: Serum or plasma albumin inma urement (mass/volume)on 01-24-2022 Albumin [Mass/Vol] 3.7 g/dL 3.2-5.0 [facility] Work Phone: Serum or plasma albumin/glob ulin mass ratioon 01-24-2022 Albumin/Globulin [Mass ratio] 1.0 {ratio} 0.9-2.4 [facility] Work Phone: Serum or plasma calcium nima urement (mass/volume)on 01-24-2022 Calcium [Mass/Vol] 8.9 mg/dL 8.5-10.1 [facility] Work Phone: Serum or plasma creatinine m easurement (mass/volume)on 01-24-2022 Creatinine [Mass/Vol] 1.15 mg/dL 0.70-1.30 [facility] Work Phone: Comment on above: The validity of the calculated GFR & GFRAA in patients over 70 years has not been determined. Clinical correlation is essential. Serum or plasma urea nitroge n measurement (mass/volume)on 01-24-2022 Urea nitrogen [Mass/Vol] 21 mg/dL 12-24 [facility] Work Phone: Thin prep Papanicolaou smear with manual screeningon 01-24-2022 Thin prep Papanicolaou smear with manual screening 25 U/L 15-37 [facility] Work Phone: Thin prep Papanicolaou smear with manual screening 5 5-15 [facility] Work Phone: No Panel Informationon 10-08 [facility] Vital Signs Date Time Vital Sign Value Performing Clinician Faci lity 11-26-2024 06:35-0400 Body mass index (BMI) [Ratio] 30 kg/m2 Dr. Luis Carter MD Work Phone: [facility] 11-26-2024 06:35-0400 Body weight 87.[address] Luis Carter MD Work Phone: [facility] 11-26-2024 06:35-0400 Diastolic blood pressure 79 mm[Hg] Dr. Luis Carter MD Work Phone: [facility] [facility] 11-26-2024 06:35-0400 Heart rate 70 /min Dr. Luis Carter MD Work Phone: [facility] 11-26-2024 06:35-0400 Respiratory rate 18 /min Dr. Luis Carter MD Work Phone: [facility] 11-26-2024 06:35-0400 SaO2% (BldA) [Mass fraction] 96 % Dr. Luis Carter MD Work Phone: [facility] 11-26-2024 06:35-0400 Systolic blood pressure 151 mm[Hg] Dr. Luis Carter MD Work Phone: [facility] 10-20-2024 08:35-0400 Body height 170.[address] Luis Carter MD Work Phone: [facility] 10-20-2024 08:35-0400 Body mass index (BMI) [Ratio] 29 kg/m2 Dr. Luis Carter MD Work Phone: [facility] 10-20-2024 08:35-0400 Body weight 83.[address] Luis Carter MD Work Phone: [facility] 10-20-2024 08:35-0400 Diastolic blood pressure 62 mm[Hg] Dr. Luis Carter MD Work Phone: [facility] 10-20-2024 08:35-0400 Heart rate 64 /min Dr. Luis Carter MD Work Phone: [facility] 10-20-2024 08:35-0400 Respiratory rate 20 /min Dr. Luis Carter MD Work Phone: [facility] 10-20-2024 08:35-0400 Systolic blood pressure 138 mm[Hg] Dr. Luis Carter MD Work Phone: [facility] Encounters Encounter Date Encounter Type Care Provider Facility Start: 11-29-2024 ambulatory [facility] Facility:[facility] Start: 11-26-2024 End: 11-26-2024 Patient encounter procedure Danyell Quintero NP-[facility] -[facility] Work Phone: Start: 11-26-2024 End: 11-26-[address] Luis Carter MD Work Phone: [facility] Work Phone: Start: 11-16-2024 End: 11-16-[address] Luis Carter MD Work Phone: [facility] Work Phone: Start: 11-16-2024 End: 11-16-[address] August Oconnor MD -Laboratory Work Phone: Start: 11-16-2024 End: 11-16-2024 ambulatory August Oconnor Facility:[facility] Start: 10-20-2024 End: 10-20-[address] August Oconnor MD -[facility] Work Phone: Start: 10-20-2024 End: 10-20-[address] Luis Carter MD Work Phone: [facility] Work Phone: Start: 09-10-2024 Non-patient / Non-visit Dr. Eriberto faulkner MD -[facility] Start: 09-10-2024 End: 09-10-[address] Luis Carter MD Work Phone: [facility] Work Phone: Start: 09-10-2024 End: 09-10-[address] Luis Carter MD -Cardiovascular Services Work Phone: Start: 09-10-2024 End: 09-10-2024 ambulatory [facility] Juliane Facility:[facility] Start: 08-17-2024 End: 08-17-[address] Luis Carter MD Work Phone: [facility] Work Phone: Start: 08-17-2024 End: 08-17-[address] Luis Carter MD -Laboratory, y Office [address] [place] [address] Start: 08-17-2024 End: 08-17-2024 ambulatory Luis [facility] Juliane Facility:[facility] Start: 02-02-2024 End: 02-02-2024 ambulatory [facility] Juliane Facility:[facility] Start: 08-06-2023 End: 08-06-2023 ambulatory [facility] Work Phone: Start: 08-06-2023 End: 08-06-2023 Patient encounter procedure [facility] Work Phone: Start: 02-03-2023 Non-patient / Non-visit Dr. Nadeem Carter Work Phone: [facility] Start: 01-31-2023 End: 01-31-[address] Luis Carter Work Phone: [facility] Work Phone: Start: 01-31-2023 End: 01-31-2023 Patient encounter procedure [facility]-P[facility] Services/Neurology Work Phone: Start: 01-27-2023 End: 01-27-2023 ambulatory [facility] Work Phone: Start: 01-27-2023 End: 01-27-2023 Patient encounter procedure [facility], y Office 3rd Flr Start: 11-27-2022 Telephone encounter Rodolfo sanders MD Work Phone: Internal Medicine [place] Comment on above: Patient Question Start: 06-28-2022 End: 06-28-2022 ambulatory NIDHI C CALL Facility:[facility] Start: 06-28-2022 End: 06-28-2022 Nursing evaluation of patient and report Nurse/[facility] Work Phone: Podiatry Comment on above: Arthritis of foot (P rimary Dx); Pes planus of both feet Start: 01-24-2022 End: 01-24-2022 ambulatory [facility] Work Phone: Start: 01-24-2022 End: 01-24-2022 [facility] Start: 10-08-2021 End: 10-08-2021 Subsequent hospital visit by physician X[facility] Work Phone: Radiology Comment on above: Arthritis [...] Treatment Date Care Activity Detail Author Start: 11-26-2024 Evaluation of diagnostic study results [facility] Start: 10-20-2024 Patient referral [facility] Work Phone: Start: 10-20-2024 Evaluation of diagnostic study results [facility] Start: 02-07-2023 [facility]enza [facility] Start: 06-09-2022 DEPRESSION ASSESSMENT DEPRESSION ASSESSMENT [facility] Start: 02-07-2022 Influenza vaccination [facility] Start: 11-09-2020 COVID-19 VACCINE (2 - Booster for Kezia series) COVID-19 VACCINE (2 - Booster for Kezia series) [facility] Start: 09-21-2019 PROSTATE CANCER SCREENING DISCUSSION PROSTATE CANCER SCREENING DISCUSSION [facility] Start: 2014 SHINGRIX VACCINE (1 of 2) SHINGRIX VACCINE (1 of 2) [facility] Start: 2009 COLOGUARD (FIT-DNA) COLOGUARD (FIT-DNA) [facility] Start: 2009 Colonoscopy COLONOSCOPY [facility] Start: 2009 COLORECTAL CANCER SCREENING COLORECTAL CANCER SCREENING [facility] Start: [address] COLONOGRAPHY [facility] Start: 2009 DIABETES SCREEN DIABETES SCREEN [facility] Start: 2009 FECAL OCCULT BLOOD FECAL OCCULT BLOOD [facility] Start: 2009 SIGMOIDOSCOPY SIGMOIDOSCOPY [facility] Start: 09-21-1999 LIPID SCREEN LIPID SCREEN [facility] Start: 09-21-1983 Urine microalbumin profile DTAP,TDAP,TD (1 - Tdap) [facility] Start: 1982 HEPATITIS C SCREENING HEPATITIS C SCREENING [facility] Start: 1982 HIV SCREENING HIV SCREENING [facility] Start: 1976 Adult depression screening assessment DEPRESSION SCREENING [facility] Start: 1964 HEPATITIS B (1 of 3 - 3-dose series) HEPATITIS B (1 of 3 - 3-dose series) [facility] Patient referral [facility] Work Phone: Thyroid stimulating hormone measurement [facility] Payers Date Payer Category Payer Unknown [id number] 2024 Self-pay [id number] 2024 Unknown [id number] 2022 Unknown ANTHEM BLUE ACCE SS PPO [id number] 2022-Present [phone] [address] [place] [address] PPO [id number] 2021 Private Health Insurance [employer] A ETNA MANAGED CHOICE POS [id number] 2021-Present [phone] [address] [place] [address] POS [id number] 2021 Private Health Insurance [id number] 2021 Private Health Insurance [employer] A ETNA MANAGED CHOICE POS [id number] 2021-Present [phone] [address] [place] [address] POS [id number] 2006 Unknown [facility] *DO NOT USE* [id number] Unknown ANTHEM [id number] Unknown ANTHEM [id number] 62 Unknown [id number] 62 Unknown [id number] 62 Unknown [id number] 62 Unknown [id number] 62 Unknown [id number] 62 Unknown [id number] 62 Unknown [id number] 62 Unknown [id number] 62 Social History Date Type Detail Facility Start: 06-23-2019 [facility] tobacco [facility] History of tobacco use Chews Tobacco [facility] Start: 10-08-2021 Alcohol intake Current drinke r of alcohol (finding) [facility] Start: 1965 Sex Assigned At Not on file [facility] Start: 09-28-2021 End: 10-08-2021 Exposure to SARS-CoV-2 (event) Not sure [facility] Start: 1965 Sex Assigned At Male [facility] Start: 06-23-2019 Tobacco use and exposure User of smokeless tobacco [facility] Unknown if ever smoked [facility] Work Phone: Start: 08-26-2024 End: 09-16-2024 Sex Male (finding) [facility] Start: 09-03-2024 Tobacco smoking stat us GAIS Smokes tobacco daily (finding) [facility] Start: 10-20-2024 End: 11-26-2024 Tobacco smoking status NHIS Ex-smoker (finding) [facility] Clinical Notes 10-08-2021 to 10-20-2024 Note Date & Type Note Facility 10-20-2024 Evaluation note Diagnosis Onset Date Resolution Asthma chronic October 20, 2024 9:59am Carotid artery disease chronic Ma 2024 9:59am Dyslipidemia chronic October 20 9:59am ETOH abuse chronic October 20, 2024 9:59am Lightheadedness chronic October 20, 2024 9:59am Syncope resolved October 20, 2024 9:59am [facility] Work Phone: 1(880) 998-416905-14-2025 Evaluation note* Diagnosis Onset Date Resolution Status Admit Date Asthma chronic October 20, 2024 9:59am Carotid artery disease chronic Ma 2024 9:59am Dyslipidemia chronic October 20 9:59am ETOH abuse chronic October 20, 2024 9:59am Lightheadedness chronic October 20, 2024 9:59am Syncope resolved October 20, 2024 9:59am Sick sinus syndrome with tachycardia acute November 26, 2024 11:24am [facility] Work Phone: 1(824) 891-821605-14-2025 Progress [facility] [address] [place] [address] OFFICE VISIT Date of Service: 10/20/24 MR#: [id number] Acct: [id number] Name: DEMETRIUS EPNA Rep #: [id number] : 1965 Provider: Dr. Zack Oconnor MD Age/Sex: 59/M Location: [facility] Status: Signed HPI HPI History of Present Illness Details: This gentleman has been referred to us for syncopal episode. Per patient, in July of this year, he was partying with his and some friends. Per him, he drank excessively and also had some THC Gummies. While with his friends, he momentarily just put hishead back. According to him, his friend shook [...] feels lightheaded. No syncope or presyncope. Per him,he just feels unsteady on his feet for [...] It showed normal left ventricular systolic function. Mildlydilated left atrium was reported. Doppler ultrasoundof the carotids showed 50 to 69% stenosis bilaterally. Intake Vital Signs 10/20/24 08:35 Height 5 ft 7 in Weight: 185 lb BMI 29.0 BP 138/62 H Blood Pressure Location Lt brachial Position Sitting Respiration 20 H Pulse 64 Pulse Source NIBP Intake Visit Reasons: SYNCOPE (JULIANE) Reserve Operator Required: No Accompanied by: Self Is patient [...] Cardiac Ejection fraction %: 60 10/20/24 1040 MD> Date _ August Oconnor MD Cosigner Signature: Date (if applicable) CC: Dr. Luis Carter MD ~ [facility]05-14-2025 Progress note Author August Oconnor [facility] Note Date/Time October 20, 2024 10:40 am [facility] [address] [place] [address]. [address] [place] [address] OFFICE VISIT Date of Service: 10/20/24 MR#: [id number] Acct: [id number] Name: DEMETRIUS PENA Rep #: [id number] : 1965 Provider: Dr. Zack Oconnor MD Age/Sex: 59/M Location[place] [facility] Status: Signed HPI HPI History of Present [...] Source NIBP Intake Visit Reasons: SYNCOPE (JULIANE) Reserve Operator Required: No Accompanied by: Self Is patient [...] Oconnor MD> Date _ August Oconnor MD Cosign Signature: Date (if applicable) CC: Dr. Luis Carter MD ~ [facility] Work Phone: 1(697) 630-135308-28-2023 Procedure [facility] 11-27-2022 Miscellaneous Notes* Telephone Encounter - Maddison Gale RN - 11/27/2022 4:34 PM EDT Pt called and is notified of providers message and instructions. Pt voices understanding, states his elbow is hurting so he will have to see other provider. Pt will call back to schedule with Dr Valentine. Maddison Babulski, RN * Telephone Encounter - Danielle Hernandez LPN - 11/27/2022 4:25 PM EDT Message left to pt with info and requested return call to arrange appt. * Telephone Encounter - Rodolfo Guerrero MD - 11/27/2022 12:51 PM EDT Okay. Schedule in 1-2 months. Request records. * Telephone Encounter - Skylar Sal - 11/27/2022 9:55 AM EDT Pts called to see if pt could be added as a pt. She is a pt and spoke with Dr. Guerrero. Please advise if pt can be established. [facility]23 NoteHNO ID: [id number] Author: Carri Hunt LPN Service: ? Author Type: LICENSED NURSE Type: Progress Notes Filed: 06/28/2022 2:19 PM Note Text: Per Demetrius Wilde was provided with powerstep original inserts, size 9, and instructed/educated in its application, wear, and care. All questions were answered, and patient was able to demonstrate competence with the necessary skills to utilize the above equipment. [facility] History of Present illness Narrative* Carri Hunt LPN - 06/28/2022 2:19 PM EST Per Demetrius Wilde was provided with powerstep original inserts, size 9, and instructed/educated in its application, wear, and care. All questions were answered, and patient was able to demonstrate competence with the necessary skills to utilize the above equipment. Carri Hunt LPN documented [facility]22 History of Present illness Narrative* Naila Diaz RN - 10/08/2021 2:[address] Aly, Demetrius was provided with a pair of Power [...] 2.5 years ago and was treated at [facility] with epidural. That epidural injection helped his pain in back and legs but the pain in his foot did not relieve. Patient was prescribed gabapentin and voltaren. The gabapentin and voltaren did help. [facility] The [facility] pain specialist feels he needs another epidural injection . Patient is not interested in another injection. Patient new specialist feels his pain is related to drop foot from his back and he will not treat him fci with neurontin or voltaren, rather recommends epidural. [...] today Corbin Aly DPM Podiatry [address] [facility] [address] Dept: [phone] Dept documented in this encounterNew[facility]05-[facility]-2022 History of Present illness Narrative* RT [...] 08, 2021 10:35 AM documented in this encounterNewark [facility]05-02-2022 Instructions* Patient Instructions* Corbin Aly - 10/08/2021 10:18 AM EDT Powerstep Original Full length. Can purchase at [employer] here in [place], [employer] in [place] or [place]. Also can find in [place] in [facility] Powersteps can also be purchased online, starting [...] consider injection under xray documented in this encounterNew[facility]* Diagnosis Arthritis of foot- Primary Unspecified arthropathy, ankle and foot Left foot drop Other acquired deformity of ankle and foot Neuropathy Mononeuritis of unspecified site Pes planus of both feet [facility]* Diagnosis Arthritis of foot Unspecified arthropathy, ankle and foot Pes planus of both feet documented in this encounter [facility] noteNo assessment information availableWSycamore Medical Center Work Phone: Evaluation note* Diagnosis Arthritis of foot- Primary Unspecified arthropathy, ankle and foot Pes planus of both feet documented in this encounter [facility]* Diagnosis Onset Date Resolution Status Admit Date Asthma chronic October 20, 2024 9:59am Carotid artery disease chronic Ma y 2024 9:59am Dyslipidemia chronic October 20 9:59am ETOH abuse chronic October 20, 2024 9:59am Lightheadedness chronic October 20, 2024 9:59am Syncope resolved October 20, 2024 9:59am [facility] Work Phone: Reason for referral (narrative)* Diagnostic Procedure Only (Routine) - Closed Specialty Diagnoses / Procedures Referred By Contac t Referred To Contact XR IMAGING Diagnoses Arthritis of foot Pes planus of both feet Procedures XR FOOT GENERAL 3V AP/LAT/OBL BILATERAL RADEX FOOT COMPLETE MINIMUM 3 VIEWS [address] [place] [address] Xr Imaging Referral ID Status Reason Start Date Expiration Date V isits Requested Visits Authorized [id number] Closed Auto-Generate d Referral 10/08/2021 11/07/2022 1 1 [facility] for referral (narrative)* Diagnostic Procedure Only (Routine) - Closed Specialty Diagnoses / Procedures Referred By Contac t Referred To Contact XR IMAGING Diagnoses Arthritis of foot Pes planus of both feet Procedures XR FOOT GENERAL 3V AP/LAT/OBL BILATERAL RADEX FOOT COMPLETE MINIMUM 3 VIEWS Corbin [address] [place] [address] Xr Imaging Referral ID Status Reason Start Date Expiration Date V isits Requested Visits Authorized [id number] Closed Auto-Generate d Referral 10/08/2021 11/07/2022 1 1 T [facility] for referral (narrative)No reason for referral information availableWSycamore Medical Center Work Phone: Rewmyn for visit Narrative* Diagnostic Procedure Only (Routine) - Closed Specialty Diagnoses / Procedures Referred By Contac t Referred To Contact XR IMAGING Diagnoses Arthritis of foot Pes planus of both feet Procedures XR FOOT GENERAL 3V AP/LAT/OBL BILATERAL RADEX FOOT COMPLETE MINIMUM 3 VIEWS [address] [place] [address] Xr Imaging Referral ID Status Reason Start Date Expiration Date V isits Requested Visits Authorized [id number] Closed Auto-Generate d Referral 10/08/2021 11/07/2022 1 1 [facility] Family History No Family History Records Found Relationship Condition Age at Onset Recorded Date/T shon aunt Malignant neoplasm of breast Unknown mother Malignant neoplasm of breast Unknown father Malignant neoplasm Unknown grandfather Hypertension Unknown grandmother Hypertension Unknown Summary Purpose Advance Directives No Advanced Directives Records Found Advance Directive Response Recorded Date/ Time Advance Directives No November 26 10:07am Chief Complaint and Reason for Visit Chief [...] m Syncope October 20, 2024 9:59a m Chief Complaint Admit Date SOB September 10, 2024 1:56 pm SYNCOPE (JULIANE) October 20, 2024 9:59a m SYNCOPE, DIZZINESS November 16, 2024 9:14 am Chief Complaint Admit Date SOB September 10, 2024 1:56 pm SYNCOPE (JULIANE) October 20, 2024 9:59a m SYNCOPE, DIZZINESS November 16, 2024 9:14 am 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 [place] November 082024 11:24am Reason for Visit Admit Date Asthma October 20, 2024 9:59a m Carotid artery disease October 20, 2024 9: 59am Dyslipidemia October 20, 2024 9:59a m ETOH abuse October 20, 2024 9:59a m Lightheadedness October 20, 2024 9:59a m Syncope October 20, 2024 9:59a m Sick sinus syndrome with tachycardia Nov 11:24am Additional Source Comments Source Comments (unrecognize d section and content) In the event this informatio n is protected by the Federal Confidentiality of Alcohol and Drug Abuse Patient Records regulations: The Federal rules restrict any use of the information to criminally investigate or prosecute any alcohol or drug abuse patient.[facility] HospitalIn the event this information is protected by the Federal Confidentiality of Alcohol and Drug Abuse Patient Records regulations: The Federal rules restrict any use of the information to criminally investigate or prosecute any alcohol or drug abuse patient.[facility] HospitalIn the event this information is protected by the Federal Confidentiality of Alcohol and Drug Abuse Patient Records regulations: The Federal rules restrict any use of the information to criminally investigate or prosecute any alcohol or drug abuse patient.[facility] HospitalIn the event this information is protected by the Federal Confidentiality of Alcohol and Drug Abuse Patient Records regulations: The Federal rules restrict any use of the information to criminally investigate or prosecute any alcohol or drug abuse patient.[facility] Reason for Visit (unrecogniz ed section and content) Reason Comments New Pain Reason Comments Patient Question Care Teams (unrecognized sec tion and content) Red Leader Relationship Specialty Start Date End Date Call, Nidhi Kaur [facility] [place] [address] PCP - General 07/02/04 Red Leader Relationship Specialty Start Date End Date Call, Nidhi [place] [address] PCP - General 07/02/04 Red Leader Relationship Specialty Start Date End Date Call, Nidhi Kaur [facility], [place] [address] PCP - General 07/02/04 Red Leader Relationship Specialty Start Date End Date Call, Nidhi Kaur [facility], [place] [address] PCP - General 07/02/04 Team Status: Active [...] Dates Dr. Luis Carter MD Primary Care Provtiffanie peguero, Attending Provider, Referring Provider Active Team Status: [...] October 20, 2024 End: October 20, 2024 Team Status: Inactive Member Role Status Dates Dr. Luis Carter MD Primary Care Provider Active Start: November 16, 2024 End: November 16, 2024 Dr. August Oconnor MD Attending Provider Active Start: November 16, 2024 End: November 16, 2024 Dr. August Oconnor MD Referring Provider Active Start: November 16, 2024 End: November 16, 2024 Team Status: Inactive Member Role Status Dates Dr. Luis Carter MD Primary Care Provider Active Start: November 26, 2024 End: November 26, 2024 Dr. Luis Carter MD Referring Provider Active Start: November 26, 2024 End: November 26, 2024 Danyell Quintero GENERAL PEDIATRICIAN, GENERAL PEDIATRICIAN-C Attending Provider Active Start: November 26, 2024 End: November 26, 2024 Goals (unrecognized section and content) Goals [...] section and content) DATE CREATED AUTHOR 12/19/2022 [place] DATE CREATED AUTHOR AUTHOR'Lesvia DOWD 11/29/2024 [facility] FOR RECORDS PERTAINING TO PATIENTS WHO [...] BE BASED ON THE PRIMARY CLINICAL RECORDS. [facility] [employer] [facility]. provides no warranty or guarantee of the accuracy or completeness of information in this document.
--- OUTSIDE RECORDS SUMMARY | 2024-11-29 23:09 | XMS RPT_ITS | CCD ---
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 Luis Chiang Primary Care Provider Juliane, Dr. Luis Chiang Referring Provider Juliane, Dr. Luis Chiang Other Provider Dr. Chapin Buckley Attending Provider [phone]([facility])[phone] Julinae CUTLER, Dr. Luis Chiang Primary Care Provider 1([facility] )[phone] Juliane CUTLER, Dr. Luis Chiang Attending Provider 1([facility])[phone] Juliane CUTLER, Dr. Luis Chiang Referring Provider Johnathna CUTLER, Dr. Vazquez Attending Provider [phone] Pina CUTLER, Dr. Wei Attending Provider 1([facility])[phone] Elvin CUTLER, Dr. Koch Attending Provider [...] dye [Other] Propensity to adverse reactions 6 [facility] (2 sources) Contrast media Allergy to substance 0 [facility] Work Phone: (10 sources) Iodine Drug Allergy 0 [facility] (1 source) OTHER; Translations: [OTHER] Propensity to adverse reactions (disorder) [address] [facility] Repository (8 sources) Triiodobenzoic Acids Allergy to substance 3 [facility] Comment on above: CT DYE (1 source) Iodine Drug Allergy 5 [facility] Repository (1 source) Iodinated Contrast Media Drug allergy (disorder) 5 [facility] Repository Medications Current Medications Medication Drug [...] Drug Class(es) Dates Sig (Normalized) Sig (Original) [id number] 200 actuat albuterol 0.09 mg/actuat metered dose [...] )on 11-26-2024 BUN/CRE 20.8 RATIO High 03-28 [facility] Comment on above: Performed By: #### L 501.9520, L100.0500, L300.3900, L500.2500, L400.0001 ####[facility] [address] [place], [address] Calcium [Mass/Vol] 9.4 mg/dL Normal 7.6-11.0 [facility] Comment on above: Performed By: #### L 501.9520, L100.0500, L300.3900, L500.2500, L400.0001 ####[facility] [address] [place], [address] Chloride [Moles/Vol] 103 mmol/L Normal 98-[address] [facility] Comment on above: Performed By: #### L 501.9520, L100.0500, L300.3900, L500.2500, L400.0001 ####[facility] [address] [place], [address] CO2 [Moles/Vol] 27.6 mmol/L Normal 21.0-32.0 [facility] Comment on above: Performed By: #### L 501.9520, L100.0500, L300.3900, L500.2500, L400.0001 ####[facility] [address] [place], [address] Creatinine [Mass/Vol] 0.95 mg/dL Normal 0.70-1.20 [facility] Comment on above: Performed By: #### L 501.9520, L100.0500, L300.3900, L500.2500, L400.0001 ####[facility] [address] [place], [address] ECRCL 84.03 ml/min Normal 50-250 [facility] Comment on above: Performed By: #### L 501.9520, L100.0500, L300.3900, L500.2500, L400.0001 ####[facility] [address] [place], [address] GAP 10 Normal 5-15 [facility] Comment on above: Performed By: #### L 501.9520, L100.0500, L300.3900, L500.2500, L400.0001 ####[facility] [address] [place], [address] GFR/1.73 sq M.predicted among non-blacks MDRD (S/P/Bld) [Vol rate/Area] 92 mL/min/{1.73_m2} Normal >60 [facility] Comment on above: Result Comment: mL/m in/1.73m2 CKD-EPI Creatinine Equation (2020) Performed By: #### L 501.9520, L100.0500, L300.3900, L500.2500, L400.0001 ####[facility] [address] [place], [address] Glucose [Mass/Vol] 114 mg/dL High 70-99 [facility] Comment on above: Performed By: #### L 501.9520, L100.0500, L300.3900, L500.2500, L400.0001 ####[facility] [address] [place], [address] Potassium [Moles/Vol] 5.0 mmol/L Normal 3.3-5.1 [facility] Comment on above: Performed By: #### L 501.9520, L100.0500, L300.3900, L500.2500, L400.0001 ####[facility] [address] [place], [address] Sodium [Moles/Vol] 141 mmol/L Normal 133-145 [facility] Comment on above: Performed By: #### L 501.9520, L100.0500, L300.3900, L500.2500, L400.0001 ####[facility] [address] [place], [address] Urea nitrogen [Mass/Vol] 20 mg/dL High 4-19 [facility] Comment on above: Performed By: #### L 501.9520, L100.0500, L300.3900, L500.2500, L400.0001 ####[facility] [address] [place], [address] CBC-Complete Blood Cnt No Di ffon 11-26-2024 Erythrocyte distribution width (RBC) [Ratio] 12.6 % Normal 11.6-14.6 [facility] Comment on above: Performed By: #### L 501.9520, L100.0500, L300.3900, L500.2500, L400.0001 #### [facility] [address] [place], [address] Hematocrit (Bld) [Volume fraction] 43.0 % Normal 40-54 [facility] Comment on above: Performed By: #### L 501.9520, L100.0500, L300.3900, L500.2500, L400.0001 #### [facility] [address] [place], [address] Hemoglobin (Bld) [Mass/Vol] 14.4 g/dL Normal 13.0-16.5 [facility] Comment on above: Performed By: #### L 501.9520, L100.0500, L300.3900, L500.2500, L400.0001 #### [facility] [address] [place], [address] MCH (RBC) [Entitic mass] 31.2 pg Normal 27.0-32.0 [facility] Comment on above: Performed By: #### L 501.9520, L100.0500, L300.3900, L500.2500, L400.0001 #### [facility] [address] [place], [address] MCHC (RBC) [Mass/Vol] 33.5 g/dL Normal 32-36 [facility] Comment on above: Performed By: #### L 501.9520, L100.0500, L300.3900, L500.2500, L400.0001 #### [facility] [address] [place], [address] MCV (RBC) [Entitic vol] 93.1 fL Normal 80-94 [facility] Comment on above: Performed By: #### L 501.9520, L100.0500, L300.3900, L500.2500, L400.0001 #### [facility] [address] [place], [address] Platelet mean volume (Bld) [Entitic vol] 8.8 fL Normal 6.2-12.0 [facility] Comment on above: Performed By: #### L 501.9520, L100.0500, L300.3900, L500.2500, L400.0001 #### [facility] [address] [place], [address] Platelets (Bld) [#/Vol] 303 10*3/uL Normal 150-450 [facility] Comment on above: Performed By: #### L 501.9520, L100.0500, L300.3900, L500.2500, L400.0001 #### [facility] [address] [place], [address] RBC (Bld) [#/Vol] 4.62 10*6/uL Normal 4.6-6.2 [facility] Comment on above: Performed By: #### L 501.9520, L100.0500, L300.3900, L500.2500, L400.0001 #### [facility] [address] [place], [address] RDW SD 42.9 fl Normal 35.1-43.9 [facility] Comment on above: Performed By: #### L 501.9520, L100.0500, L300.3900, L500.2500, L400.0001 #### [facility] [address] [place], [address] WBC (Bld) [#/Vol] 8.2 10*3/uL Normal 4.4-11.0 [facility] Comment on above: Performed By: #### L 501.9520, L100.0500, L300.3900, L500.2500, L400.0001 #### [facility] [address] [place], [address] Cardiology Visit Reporton Cardiology Visit Report [facility] [address] [place], [place] [address] OFFICE VISIT Date of Service: 11/26/24 MR#: [id number] Acct: [id number] Name: DEMETRIUS PENA Rep #: [id number] : 1965 Provider: JAC causey Age/Sex: 59/M [place] [facility] [place]: Signed HPI HPI History of Present [...] H P and pacemaker teaching per AR Vat Skimmer Required: No Is patient in pain?: No [...] the past year?: No PFSH Medical History Essential hypertension Hyperlipidemia Asthma Lightheadedness Syncope Sciatica [...] obese Orientati (more content not included)... Normal [facility] Chest PA and Lateralon 11-26 Chest PA and Lateral [facility] [address] [place], [place] [id number] Chest PA and Lateral MR#: [id number] Acct: [id number] Name: DEMETRIUS PENA Rep #: [id number] : 1965 M 59 From: Sofia lacy MD PCP: Dr. Luis Carter MD Status: PRE [facility] Study: Chest PA and Lateral Date of Exam: 11/26/24 Exam# [id number] Ordering Dr: Danyell Quintero NP BARREL BANDER- C PROCEDURE: CHEST PA AND LATERAL 11/26/2024 [...] No evidence for acute abnormality. Reading Location: [place] [address] CC: BARREL [employer]ANDER-Percy Quintero; Dr. Luis Carter MD Diamond Polisher: Signed Normal [facility] Prothrombin Time w/INRon INR Coag (PPP) [Relative time] 0.9 {INR} Normal [facility] Comment on above: Performed By: #### L 501.9520, L100.0500, L300.3900, L500.2500, L400.0001 ####[facility] [address] [place], [address] PT Coag (PPP) [Time] 12.2 s Normal 11.7-14.[address] [facility] Comment on above: Performed By: #### L 501.9520, L100.0500, L300.3900, L500.2500, L400.0001 ####[facility] [address] [facility] [place], [address] Thyroid Stim Hormone (TSH)on 11-26-2024 TSH 1.110 uIU/mL Normal 0.300-4.200 [facility] Comment on above: Performed By: #### L 501.9520, L100.0500, L300.3900, L500.2500, L400.0001 ####[facility] [address] [place], [address] Urinalysis, Completeon 11-26 RBC 0-5 SEEN Normal 0-5 [facility] Comment on above: Order Comment: COLLE CTOR TO SPECIFY Performed By: #### L 501.9520, L100.0500, L300.3900, L500.2500, L400.0001 ####[facility] [address] [place], [address] BACTERIA 0 SEEN Normal None Seen [facility] Comment on above: Order Comment: COLLE CTOR TO SPECIFY Performed By: #### L 501.9520, L100.0500, L300.3900, L500.2500, L400.0001 ####[facility] [address] [place], [address] EPI,SQUAMOUS 0 SEEN Normal 0-5 [facility] Comment on above: Order Comment: COLLE CTOR TO SPECIFY Performed By: #### L 501.9520, L100.0500, L300.3900, L500.2500, L400.0001 ####[facility] [address] [place], [address] Mucus Ql (Urine sed) 0 SEEN Normal [facility] Comment on above: Order Comment: COLLE CTOR TO SPECIFY Performed By: #### L 501.9520, L100.0500, L300.3900, L500.2500, L400.0001 ####[facility] [address] [place], [address] WBC 0 SEEN Normal 0-5 [facility] Comment on above: Order Comment: COLLE CTOR TO SPECIFY Performed By: #### L 501.9520, L100.0500, L300.3900, L500.2500, L400.0001 ####[facility] [address] [place], [address] Anion gap in Serum or Plasma Ordered By: August Oconnor on 11-16-2024 Anion gap [Moles/Vol] 10 mmol/L 5-15 [facility] BUN/creatinine ratioOrdered By: August Oconnor on 11-16-2024 Urea nitrogen/Creatinine [Mass ratio] 18.6 mg/mg 10- [facility] Bilirubin, totalOrdered By: August Oconnor on 11-16-2024 Bilirubin [Mass/Vol] 0.32 mg/dL 0.00-1.[address] [facility] Calculated very low density lipoprotein (VLDL) cholesterol measurementOrdered By: August Oconnor on 11-16-2024 Calculated very low density lipoprotein (VLDL) cholesterol measurement 37 mg/dL - [facility] Carbon dioxide, total [Moles /volume] in Central venous bloodOrdered By: August Oocnnor on 11-16-2024 CO2 [Moles/Vol] 27.9 mmol/L 21.0-32.0 [facility] Chloride assayOrdered By: Jacobo Oconnor on 11-16-2024 Chloride [Moles/Vol] 102 mmol/L 98-[address] [facility] Comprehensive Metabolic Prof ilon 11-16-2024 Albumin [Mass/Vol] 4.3 g/dL Normal 3.4-4.8 [facility] Comment on above: Performed By: #### L 500.4100, L500.4050 #### [facility] [address] [place], [address] Albumin/Globulin [Mass ratio] 1.3 {ratio} Normal 0.9-2.4 [facility] Comment on above: Performed By: #### L 500.4100, L500.4050 #### [facility] [address] [place], [address] ALK PHOS 57 U/L Normal 40-129 [facility] Comment on above: Performed By: #### L 500.4100, L500.4050 #### [facility] [address] [place], [address] ALT [Catalytic activity/Vol] 23 U/L Normal <=46 [facility] Comment on above: Performed By: #### L 500.4100, L500.4050 #### [facility] [address] [place], [address] AST [Catalytic activity/Vol] 23 U/L Normal <=37 [facility] Comment on above: Performed By: #### L 500.4100, L500.4050 #### [facility] [address] [place], [address] Bilirubin [Mass/Vol] 0.32 mg/dL Normal 0.00-1.[address] [facility] Comment on above: Performed By: #### L 500.4100, L500.4050 #### [facility] [address] [place], [address] BUN/CRE 18.6 RATIO Normal 10-20 [facility] Comment on above: Performed By: #### L 500.4100, L500.4050 #### [facility] [address] [place], [address] Calcium [Mass/Vol] 9.3 mg/dL Normal 7.6-11.0 [facility] Comment on above: Performed By: #### L 500.4100, L500.4050 #### [facility] [address] [place], [address] Chloride [Moles/Vol] 102 mmol/L Normal 98-[address] [facility] Comment on above: Performed By: #### L 500.4100, L500.4050 #### [facility] [address] [place], [address] CO2 [Moles/Vol] 27.9 mmol/L Normal 21.0-32.0 [facility] Comment on above: Performed By: #### L 500.4100, L500.4050 #### [facility] [address] [place], [address] Creatinine [Mass/Vol] 1.02 mg/dL Normal 0.70-1.20 [facility] Comment on above: Performed By: #### L 500.4100, L500.4050 #### [facility] [address] [place], [address] GAP 10 Normal 5-15 [facility] Comment on above: Performed By: #### L 500.4100, L500.4050 #### [facility] [address] [place], [address] GFR/1.73 sq M.predicted among non-blacks MDRD (S/P/Bld) [Vol rate/Area] 84 mL/min/{1.73_m2} Normal >60 [facility] Comment on above: Result Comment: mL/m in/1.73m2 CKD-EPI Creatinine Equation (2020) Performed By: #### L 500.4100, L500.4050 #### [facility] [address] [place], [address] Globulin (S) [Mass/Vol] 3.2 g/dL Normal 2.2-4.2 [facility] Comment on above: Performed By: #### L 500.4100, L500.4050 #### [facility] [address] [place], [address] Glucose [Mass/Vol] 118 mg/dL High 70-99 [facility] Comment on above: Performed By: #### L 500.4100, L500.4050 #### [facility] [address] [place], [address] Potassium [Moles/Vol] 4.5 mmol/L Normal 3.3-5.1 [facility] Comment on above: Performed By: #### L 500.4100, L500.4050 #### [facility] [address] [place], [address] Sodium [Moles/Vol] 139 mmol/L Normal 133-145 [facility] Comment on above: Performed By: #### L 500.4100, L500.4050 #### [facility] [address] [place], [address] T PROT 7.5 g/dL Normal 5.9-8.4 [facility] Comment on above: Performed By: #### L 500.4100, L500.4050 #### [facility] [address] [place], [address] Urea nitrogen [Mass/Vol] 19 mg/dL Normal 4-19 [facility] Comment on above: Performed By: #### L 500.4100, L500.4050 #### [facility] [address] [place], [address] Glomerular filtration rate ( GFR) estimation/1.73 sq m using serum, plasma, or whole bOrdered By: August Oconnor on 11-16-2024 GFR/1.73 sq M.predicted among non-blacks MDRD (S/P/Bld) [Vol rate/Area] 84 mL/min/{1.73_m2} >60 [facility] Comment on above: mL/min/1.73m2 CKD-EP I Creatinine Equation (2020) LDL calc ser/plasOrdered By: August Oconnor on 11-16-2024 Cholesterol in LDL [Mass/Vol] 180 mg/dL [facility] Comment on above: Onhjqnctev=475-514 m g/dL & Higher Wcri=977 mg/dL or greater Laboratory - Chemistry and C hemistry - challengeOrdered By: August Oconnor on 11-16-2024 AST [Catalytic activity/Vol] 23 U/L <38 [facility] Lipid Profileon 11-16-2024 CHOL:HDL 5.19 Normal [facility] Comment on above: Performed By: #### L 500.4100, L500.4050 #### [facility] [address] [place], [address] Cholesterol [Mass/Vol] 269 mg/dL High <=200 [facility] Comment on above: Result Comment: Chol esterol level, Desirable <200 mg/dL Borderline high cholesterol 200-239 mg/dL High cholesterol >=240 mg/dL Recommendations of the NCEP Adult Treatment Panel for the following risk-cutoff thresholds for the [place] population. Performed By: #### L 500.4100, L500.4050 #### [facility] [address] [place], [address] Cholesterol in HDL [Mass/Vol] 52 mg/dL Normal [facility] Comment on above: Result Comment: Giovanna onal Cholesterol Education Program (NCEP) guidelines: <40 mg/dL: Low HDL-cholesterol (major risk factor for CHD) >= 60 mg/dL: High HDL-cholesterol (negative risk factor for CHD) HDL-cholesterol is affected by a number of factors, e.g. smoking, exercise, hormones, sex and age. Performed By: #### L 500.4100, L500.4050 #### [facility] [address] [place], [address] Cholesterol in LDL [Mass/Vol] 180 mg/dL Normal [facility] Comment on above: Result Comment: Bord ejgiph=897-651 mg/dL Higher Mfpn=715 mg/dL or greater Performed By: #### L 500.4100, L500.4050 #### [facility] [address] [place], [address] Cholesterol in VLDL [Mass/Vol] 37 mg/dL Normal 5-40 [facility] Comment on above: Performed By: #### L 500.4100, L500.4050 #### [facility] [address] [place], [address] Triglyceride [Mass/Vol] 185 mg/dL Normal [facility] Comment on above: Result Comment: The drugs N-Acetylcysteine and Metamizole may falsely depress this assay. Normal range: <150 mg/dL Borderline High: 150-199 mg/dL High: 200-499 mg/dL Very High: >500 mg/dL Performed By: #### L 500.4100, L500.4050 #### [facility] [address] [place], [address] Potassium measurement (mass/ volume)Ordered By: August Oconnor on 11-16-2024 Potassium (Unsp spec) [Mass/Vol] 4.5 mmol/L 3.3-5.1 [facility] Screening total cholesterol/ high density lipoprotein (HDL) cholesterol ratioOrdered By: August Oconnor on 11-16-2024 Cholesterol.total/Cholest reva in HDL [Mass ratio] 5.19 {ratio} [facility] Serum creatinine measurement (mass/volume)Ordered By: August Oconnor on 11-16-2024 Creatinine [Mass/Vol] 1.02 mg/dL 0.70-1.20 [facility] Serum globulin measurementOr dered By: August Oconnor on 11-16-2024 Globulin (S) [Mass/Vol] 3.2 g/dL 2.2-4.2 [facility] Serum glucose measurement (m ass/volume)Ordered By: August Oconnor on 11-16-2024 Glucose [Mass/Vol] 118 mg/dL High 70-99 [facility] Serum or plasma alanine sexton otransferase (ALT) measurementOrdered By: August Oconnor on 11-16-2024 ALT [Catalytic activity/Vol] 23 U/L <47 [facility] Serum or plasma albumin nima urement (mass/volume)Ordered By: August Oconnor on 11-16-2024 Albumin [Mass/Vol] 4.3 g/dL 3.4-4.8 [facility] Serum or plasma albumin/glob ulin mass ratioOrdered By: August Oconnor on 11-16-2024 Albumin/Globulin [Mass ratio] 1.3 {ratio} 0.9-2.4 [facility] Serum or plasma alkaline kamini sphatase measurementOrdered By: August Oconnor on 06-10-2025 ALP [Catalytic activity/Vol] 57 U/L 40-129 [facility] Serum or plasma calcium nima urement (mass/volume)Ordered By: August Oconnor on 11-16-2024 Calcium [Mass/Vol] 9.3 mg/dL 7.6-11.0 [facility] Serum or plasma cholesterol in HDL measurement (mass/volume)Ordered By: August Oconnor on 11-16-2024 Cholesterol in HDL [Mass/Vol] 52 mg/dL >40 [facility] Comment on above: National Cholesterol Education Program (NCEP) guidelines:<40 mg/dL: Low HDL-cholesterol (major risk factor for CHD)>= 60 mg/dL: High HDL-cholesterol (negative risk factor for CHD)HDL-cholesterol is affected by a number of factors, e.g. smoking, exercise, hormones, sex and age. Serum or plasma cholesterol measurement (mass/volume)Ordered By: August Oconnor on 11-16-2024 Cholesterol [Mass/Vol] 269 mg/dL High <201 [facility] Comment on above: Cholesterol level, D esirable <200 mg/dLBorderline high cholesterol 200-239 mg/dLHigh cholesterol >=240 mg/dLRecommendations of the NCEP Adult Treatment Panel for the following risk-cutoff thresholds for the [place] population. Serum or plasma urea nitroge n measurement (mass/volume)Ordered By: August Oconnor on 11-16-2024 Urea nitrogen [Mass/Vol] 19 mg/dL 4-19 [facility] Sodium levelOrdered By: Zack Oconnor on 11-16-2024 Sodium [Moles/Vol] 139 mmol/L 133-145 [facility] Total proteinOrdered By: Seth Oconnor on 11-16-2024 Protein [Mass/Vol] 7.5 g/dL 5.9-8.4 [facility] Triglycerides measurementOrd ered By: August Oconnor on 11-16-2024 Triglyceride [Mass/Vol] 185 mg/dL <199 [facility] Comment on above: The drugs N-Acetylcy steine and Metamizole may falsely depress this assay. Normal range: <150 mg/dLBorderline High: 150-199 mg/dLHigh: 200-499 mg/dLVery High: >500 mg/dL Cardiology Visit Reporton Cardiology Visit Report [facility] [address] [place] [address] OFFICE VISIT Date of Service: 10/20/24 MR#: [id number] Acct: [id number] Name: DEMETRIUS PENA Rep #: [id number] : 1965 Provider: Dr. August Oconnor MD Age/Sex: 59/M [place] [facility] [place]: Signed HPI HPI History of Present [...] Source NIBP Intake Visit Reasons: SYNCOPE (JULIANE) Vat Skimmer Required: No Accompanied by: Self Is patient [...] (50-69%) stenos (more content not included)... Normal [facility] Duplex ultrasound of carotid artery reportOrdered By: Eriberto Heller on 09-12-2024 Study report [facility] [address] [place] [address] Carotid Duplex Ultrasound 09/10/24 1440 MR#: [id number] Acct: [id number] Name: DEMETRIUS PENA Rep #:[id number] : 1965 58 From: Eriberto Goins Attending Dr: Dr. Luis Carter MD Status: REG CLI Ordering Dr: Luis Carter MD Date: 10/01 Location: [facility] Sex: M C Admitted: Reason For Study [...] the left vertebral artery. Procedure Carotid Duplex 36648. This is a Carotid Duplex examination using [...] Dictated: 09/10/24 1440 Date Transcribed: 09/12/24 133 Diamond Polisher: Signed [facility] Work Phone: Carotid Duplex Ultrasoundon 09-10-2024 Carotid Duplex Ultrasound [facility] [address] [place] [address] Carotid Duplex Ultrasound 09/10/24 1440 MR#: [id number] Acct: [id number] Name: DEMETRIUS PENA Rep #: [id number] : 1965 58 From: Eriberto Heller MD [...] the left vertebral artery. Procedure Carotid Duplex 92843. This is a Carotid Duplex examination using [...] Dictated: 09/10/24 1440 Date Transcribed: 09/12/24 1338 Diamond Polisher: Signed Normal [facility] Echo Completeon 09-10-2024 Echo Complete [facility] [address] [place] [address] Echo Complete 09/10/24 1412 MR#: [id number] Acct: [id number] Name: DEMETRIUS PENA Rep #: [id number] : 1965 58 From: George Mann MD Attending Dr: Dr. Luis Carter MD Status: REG I Ordering Dr: Luis Carter MD Date: 09/10/24 Location: [facility] Sex: M C Admitted: Reason For Study [...] Date Dictated: 09/10/241411 Date Transcribed: 09/10/24 1558 Diamond Polisher: Signed Normal [facility] Echocardiogram study reportO rdered By: George Mann on 09-10-2024 Study report [facility] [address] [place] [address] Echo Complete 09/10/24 141 MR#: [id number] Acct: [id number] Name: DEMETRIUS PENA Rep #:[id number] : 1965 58 From: George Goins Attending Dr: Dr. Luis Carter MD Status: REG CLI Ordering Dr: Luis Carter MD Date: 10/01 Location: [facility] Sex: M C Admitted: Reason For Study [...] Dictated: 09/10/24 1412 Date Transcribed: 09/10/24 1558 Diamond Polisher: Signed [facility] Work Phone: Hemoglobin A1con 08-18-2024 HbA1c (Bld) [Mass fraction] 6.1 % Normal <=5.6 [facility] Comment on above: Order Comment: ADD O N FROM 08/17/24 H209 Performed By: #### L 500.4050, L100.0100, L501.9985 #### [facility] [address] [place], [address] Absolute lymphocyte countOrd ered By: Luis Carter on 08-17-2024 Lymphocytes Auto (Unsp spec) [#/Vol] 1.42 10*3/uL 0.83-4.51 [facility] Absolute neutrophil countOrd ered By: Luis Carter on 08-17-2024 Neutrophils (Bld) [#/Vol] 3.9 10*3/uL 2.0-7.7 [facility] Anion gap in Serum or Plasma Ordered By: Luis Carter on 08-17-2024 Anion gap [Moles/Vol] 12 mmol/L 5- [facility] Automated lymphocyte count a s percentage of total leukocytesOrdered By: Luis Juliane on 08-17-2024 Lymphocytes/100 WBC Auto (Unsp spec) 21.9 % - [facility] BUN/creatinine ratioOrdered By: [facility] on 08-17-2024 Urea nitrogen/Creatinine [Mass ratio] 18.6 mg/mg - [facility] Basophil percentageOrdered B y: Luis Juliane on 08-17-2024 Basophils/100 WBC (Bld) 0.9 % 0-1 [facility] Bilirubin, totalOrdered By: Luis Carter on 08-17-2024 Bilirubin [Mass/Vol] 0.43 mg/dL 0.00-1.[address] [facility] CBC W/Diff, Automatedon 08-07 Absolute Lymph 1.42 X10 3/uL Normal 0.83-4.51 [facility] Comment on above: Performed By: #### L 500.4050, L100.0100, L501.9985 #### [facility] [address] [place], [address] Absolute Neut 3.9 X10 3/uL Normal 2.0-7.7 [facility] Comment on above: Performed By: #### L 500.4050, L100.0100, L501.9985 #### [facility] [address] [place], [address] Basophils/100 WBC (Bld) 0.9 % Normal 0-1 [facility] Comment on above: Performed By: #### L 500.4050, L100.0100, L501.9985 #### [facility] [address] [place], [address] Eosinophils/100 WBC (Bld) 9.2 % High 0-5 [facility] Comment on above: Performed By: #### L 500.4050, L100.0100, L501.9985 #### [facility] [address] [place], [address] Erythrocyte distribution width (RBC) [Ratio] 13.0 % Normal 11.6-14.6 [facility] Comment on above: Performed By: #### L 500.4050, L100.0100, L501.9985 #### [facility] [address] [place], [address] Hematocrit (Bld) [Volume fraction] 43.3 % Normal 40-54 [facility] Comment on above: Performed By: #### L 500.4050, L100.0100, L501.9985 #### [facility] [address] [place], [address] Hemoglobin (Bld) [Mass/Vol] 14.5 g/dL Normal 13.0-16.5 [facility] Comment on above: Performed By: #### L 500.4050, L100.0100, L501.9985 #### [facility] [address] [place], [address] IG% 0.200 Normal 0.0-0.9 [facility] Comment on above: Result Comment: IG% - Immature Granulocytes (promyelocytes, myelocytes and metamyelocytes) > 1% indicates that a LEFT SHIFT is Present. Performed By: #### L 500.4050, L100.0100, L501.9985 #### [facility] [address] [place], [address] Lymphocytes/100 WBC (Bld) 21.9 % Normal 19-41 [facility] Comment on above: Performed By: #### L 500.4050, L100.0100, L501.9985 #### [facility] [address] [place], [address] MCH (RBC) [Entitic mass] 30.9 pg Normal 27.0-32.0 [facility] Comment on above: Performed By: #### L 500.4050, L100.0100, L501.9985 #### [facility] [address] [place], [address] MCHC (RBC) [Mass/Vol] 33.5 g/dL Normal 32-36 [facility] Comment on above: Performed By: #### L 500.4050, L100.0100, L501.9985 #### [facility] [address] [place], [address] MCV (RBC) [Entitic vol] 92.3 fL Normal 80-94 [facility] Comment on above: Performed By: #### L 500.4050, L100.0100, L501.9985 #### [facility] [address] [place], [address] Monocytes/100 WBC (Bld) 7.2 % Normal 0-10 [facility] Comment on above: Performed By: #### L 500.4050, L100.0100, L501.9985 #### [facility] [address] [place], [address] Neutrophils/100 WBC (Bld) 60.6 % Normal 47-70 [facility] Comment on above: Performed By: #### L 500.4050, L100.0100, L501.9985 #### [facility] [address] [place], [address] Nucleated RBC (Bld) [#/Vol] 0 10*3/uL Normal 0-5 [facility] Comment on above: Performed By: #### L 500.4050, L100.0100, L501.9985 #### [facility] [address] [place], [address] Platelet mean volume (Bld) [Entitic vol] 8.9 fL Normal 6.2-12.0 [facility] Comment on above: Performed By: #### L 500.4050, L100.0100, L501.9985 #### [facility] [address] [place], [address] Platelets (Bld) [#/Vol] 305 10*3/uL Normal 150-450 [facility] Comment on above: Performed By: #### L 500.4050, L100.0100, L501.9985 #### [facility] [address] [place], [address] RBC (Bld) [#/Vol] 4.69 10*6/uL Normal 4.6-6.2 [facility] Comment on above: Performed By: #### L 500.4050, L100.0100, L501.9985 #### [facility] [address] [place], [address] RDW SD 43.9 fl Normal 35.1-43.9 [facility] Comment on above: Performed By: #### L 500.4050, L100.0100, L501.9985 #### [facility] [address] [place], [address] WBC (Bld) [#/Vol] 6.5 10*3/uL Normal 4.4-11.0 [facility] Comment on above: Performed By: #### L 500.4050, L100.0100, L501.9985 #### [facility] [address] [place], [address] Carbon dioxide, total [Moles /volume] in Central venous bloodOrdered By: Luis Carter on 08-17-2024 CO2 [Moles/Vol] 25.8 mmol/L 21.0-32.0 [facility] Chloride assayOrdered By: Nadeem Carter on 08-17-2024 Chloride [Moles/Vol] 100 mmol/L 98-[address] [facility] Comprehensive Metabolic Prof ilon 08-17-2024 Albumin [Mass/Vol] 4.5 g/dL Normal 3.5-5.0 [facility] Comment on above: Performed By: #### L 500.4050, L100.0100, L501.9985 #### [facility] [address] [place], [address] Albumin/Globulin [Mass ratio] 1.3 {ratio} Normal 0.9-2.4 [facility] Comment on above: Performed By: #### L 500.4050, L100.0100, L501.9985 #### [facility] [address] [place], [address] ALK PHOS 59 U/L Normal 40-129 [facility] Comment on above: Performed By: #### L 500.4050, L100.0100, L501.9985 #### [facility] [address] [place], [address] ALT [Catalytic activity/Vol] 24 U/L Normal <=46 [facility] Comment on above: Performed By: #### L 500.4050, L100.0100, L501.9985 #### [facility] [address] [place], [address] AST [Catalytic activity/Vol] 23 U/L Normal <=37 [facility] Comment on above: Performed By: #### L 500.4050, L100.0100, L501.9985 #### [facility] [address] [place], [address] Bilirubin [Mass/Vol] 0.43 mg/dL Normal 0.00-1.[address] [facility] Comment on above: Performed By: #### L 500.4050, L100.0100, L501.9985 #### [facility] [address] [place], [address] BUN/CRE 18.6 RATIO Normal 10-20 [facility] Comment on above: Performed By: #### L 500.4050, L100.0100, L501.9985 #### [facility] [address] [place], [address] Calcium [Mass/Vol] 9.6 mg/dL Normal 7.6-11.0 [facility] Comment on above: Performed By: #### L 500.4050, L100.0100, L501.9985 #### [facility] [address] [place], [address] Chloride [Moles/Vol] 100 mmol/L Normal 98-[address] [facility] Comment on above: Performed By: #### L 500.4050, L100.0100, L501.9985 #### [facility] [address] [place], [address] CO2 [Moles/Vol] 25.8 mmol/L Normal 21.0-32.0 [facility] Comment on above: Performed By: #### L 500.4050, L100.0100, L501.9985 #### [facility] [address] [place], [address] Creatinine [Mass/Vol] 0.97 mg/dL Normal 0.70-1.20 [facility] Comment on above: Performed By: #### L 500.4050, L100.0100, L501.9985 #### [facility] [address] [place], [address] GAP 12 Normal 5-15 [facility] Comment on above: Performed By: #### L 500.4050, L100.0100, L501.9985 #### [facility] [address] [place], [address] GFR/1.73 sq M.predicted among non-blacks MDRD (S/P/Bld) [Vol rate/Area] 89 mL/min/{1.73_m2} Normal >60 [facility] Comment on above: Result Comment: mL/m in/1.73m2 CKD-EPI Creatinine Equation (2020) Performed By: #### L 500.4050, L100.0100, L501.9985 #### [facility] [address] [place], [address] Globulin (S) [Mass/Vol] 3.3 g/dL Normal 2.2-4.2 [facility] Comment on above: Performed By: #### L 500.4050, L100.0100, L501.9985 #### [facility] [address] [place], [address] Glucose [Mass/Vol] 157 mg/dL High 70-99 [facility] Comment on above: Performed By: #### L 500.4050, L100.0100, L501.9985 #### [facility] [address] [place], [address] Potassium [Moles/Vol] 4.3 mmol/L Normal 3.3-5.1 [facility] Comment on above: Result Comment: Hemo lysis present, Results??could be affected. ?? Performed By: #### L 500.4050, L100.0100, L501.9985 #### [facility] [address] [place], [address] Sodium [Moles/Vol] 138 mmol/L Normal 133-145 [facility] Comment on above: Performed By: #### L 500.4050, L100.0100, L501.9985 #### [facility] [address] [place], [address] T PROT 7.8 g/dL Normal 5.9-8.4 [facility] Comment on above: Performed By: #### L 500.4050, L100.0100, L501.9985 #### [facility] [address] [place], [address] Urea nitrogen [Mass/Vol] 18 mg/dL Normal 4-19 [facility] Comment on above: Performed By: #### L 500.4050, L100.0100, L501.9985 #### [facility] [address] [place], [address] Eosinophil percentageOrdered By: Luis Carter on 08-17-2024 Eosinophils/100 WBC (Bld) 9.2 % High 0-5 [facility] Erythrocyte distribution wid th ratioOrdered By: Luis Carter on 08-17-2024 Erythrocyte distribution width (RBC) [Ratio] 13.0 % 11.6-14.6 [facility] Erythrocyte distribution wid th standard deviationOrdered By: Luis Carter on 08-17-2024 Erythrocyte distribution width (RBC) [Entitic vol] 43.9 fL 35.1-43.9 [facility] Erythrocyte distribution width (RBC) [Ratio] 43.9 fl 35.1-43.9 [facility] GFR/1.73 sq M.predicted nory g non-blacks MDRD (S/P/Bld) [Vol rate/Area]Ordered By: Luis Carter 08-17-2024 Estimated GFR (MDRD) Non-Af Amer 89 >60 [facility] Comment on above: mL/min/1.73m2 CKD-EP I Creatinine Equation (2020) Glomerular filtration rate ( GFR) estimation/1.73 sq m using serum, plasma, or whole bOrdered By: Luis Carter on 08-17-2024 GFR/1.73 sq M.predicted among non-blacks MDRD (S/P/Bld) [Vol rate/Area] 89 mL/min/{1.73_m2} >60 [facility] Comment on above: mL/min/1.73m2 CKD-EP I Creatinine Equation (2020) Hematocrit Auto (Bld) [Volum e fraction]Ordered By: Luis Carter on 03-11-2025 Hematocrit (Bld) [Volume fraction] 43.3 % 40-54 [facility] Hemoglobin A1c percentageOrd ered By: Luis Carter on 08-17-2024 HbA1c (Bld) [Mass fraction] 6.1 % >5.7 [facility] Hemoglobin measurementOrdere d By: Luis Carter on 08-17-2024 Hemoglobin (Bld) [Mass/Vol] 14.5 g/dL 13.0-16.5 [facility] Immature granulocytes/100 WB C Auto (Bld)Ordered By: Luis Carter on 08-17-2024 Immature granulocytes/100 WBC (Bld) 0.200 % 0.0-0.9 [facility] Comment on above: IG% - Immature Granu locytes (promyelocytes, myelocytes and metamyelocytes) > 1% indicates that a LEFT SHIFT is Present. Laboratory - Chemistry and C hemistry - challengeOrdered By: Luis Carter on 08-17-2024 AST [Catalytic activity/Vol] 23 U/L <38 [facility] Lymphocytes Auto (Unsp spec) [#/Vol]Ordered By: Luis Carter on 08-17-2024 Lymphocytes (Bld) [#/Vol] 1.42 10*3/uL 0.83-4.5 1 [facility] Lymphocytes/100 WBC Auto (Un sp spec)Ordered By: Luis Carter 08-17-2024 Lymphocytes/100 WBC (Bld) 21.9 % 19-41 [facility] MCV (mean corpuscular volume ) determinationOrdered By: Luis Carter 08-17-2024 MCV (RBC) [Entitic vol] 92.3 fL 80-94 [facility] Mean corpuscular hemoglobin (MCH) determinationOrdered By: Luis Carter 08-17-2024 MCH (RBC) [Entitic mass] 30.9 pg 27.0-32.0 [facility] Mean corpuscular hemoglobin concentration (MCHC) determinationOrdered By: Luis Carter 08-17-2024 MCHC (RBC) [Mass/Vol] 33.5 g/dL 32-36 [facility] Mean platelet volume determi nationOrdered By: Luis Carter 08-17-2024 Platelet mean volume (Bld) [Entitic vol] 8.9 fL 6.2-12.0 [facility] Monocyte percentageOrdered B y: Luis Carter on 08-17-2024 Monocytes/100 WBC (Bld) 7.2 % 0-10 [facility] Neutrophil percentageOrdered By: Luis Carter on 08-17-2024 Neutrophils/100 WBC (Bld) 60.6 % 47-70 [facility] Nucleated red blood cell per centageOrdered By: Luis Carter on 08-17-2024 Nucleated RBC/100 WBC (Bld) [Ratio] 0 % 0-5 [facility] Platelet countOrdered By: Nadeem Carter on 08-17-2024 Platelets (Bld) [#/Vol] 305 10*3/uL 150-450 [facility] Potassium (Unsp spec) [Mass/ Vol]Ordered By: Luis Carter on 08-17-2024 Potassium [Moles/Vol] 4.3 mmol/L 3.3-5.1 [facility] Comment on above: Hemolysis present, R esults could be affected. Potassium measurement (mass/ volume)Ordered By: Luis Carter on 08-17-2024 Potassium (Unsp spec) [Mass/Vol] 4.3 mmol/L 3.3-5.1 [facility] Comment on above: Hemolysis present, R esults could be affected. RBC Auto (Bld) [#/Vol]Ordere d By: Luis Carter on 08-17-2024 RBC (Bld) [#/Vol] 4.69 10*6/uL 4.6-6.2 [facility] Serum creatinine measurement (mass/volume)Ordered By: Luis Carter on 08-17-2024 Creatinine [Mass/Vol] 0.97 mg/dL 0.70-1.20 [facility] Serum globulin measurementOr dered By: Luis Carter on 08-17-2024 Globulin (S) [Mass/Vol] 3.3 g/dL 2.2-4.2 [facility] Serum glucose measurement (m ass/volume)Ordered By: Luis Carter on 08-17-2024 Glucose [Mass/Vol] 157 mg/dL High 70-99 [facility] Serum or plasma alanine sexton otransferase (ALT) measurementOrdered By: Luis Carter on 08-17-2024 ALT [Catalytic activity/Vol] 24 U/L <47 [facility] Serum or plasma albumin nima urement (mass/volume)Ordered By: Luis Carter on 08-17-2024 Albumin [Mass/Vol] 4.5 g/dL 3.5-5.0 [facility] Serum or plasma albumin/glob ulin mass ratioOrdered By: Luis Carter on 08-17-2024 Albumin/Globulin [Mass ratio] 1.3 {ratio} 0.9-2.4 [facility] Serum or plasma alkaline kamini sphatase measurementOrdered By: Luis Carter on 08-17-2024 ALP [Catalytic activity/Vol] 59 U/L 40-129 [facility] Serum or plasma calcium nima urement (mass/volume)Ordered By: Luis Carter on 08-17-2024 Calcium [Mass/Vol] 9.6 mg/dL 7.6-11.0 [facility] Serum or plasma urea nitroge n measurement (mass/volume)Ordered By: Luis Carter on 08-17-2024 Urea nitrogen [Mass/Vol] 18 mg/dL 4-19 [facility] Sodium levelOrdered By: Luis Carter on 08-17-2024 Sodium [Moles/Vol] 138 mmol/L 133-145 [facility] Total proteinOrdered By: Luis Carter on 08-17-2024 Protein [Mass/Vol] 7.8 g/dL 5.9-8.4 [facility] White blood cell (WBC) count Ordered By: Luis Carter on 08-17-2024 WBC (Bld) [#/Vol] 6.5 10*3/uL 4.4-11.0 [facility] CBC W/Diff, Automatedon 01-08 Absolute Lymph 1.37 X10 3/uL Normal 0.83-4.51 [facility] Comment on above: Performed By: #### L 501.9587, L500.4050, L100.0100, L500.4100, L501.9910 ####[facility] [address] [place], [place], [id number] Absolute Neut 3.1 X10 3/uL Normal 2.0-7.7 [facility] Comment on above: Performed By: #### L 501.9520, L500.4050, L100.0100, L500.4100, L501.9910 ####[facility] [address] [place], [address] Basophils/100 WBC (Bld) 0.9 % Normal 0-1 [facility] Comment on above: Performed By: #### L 501.9520, L500.4050, L100.0100, L500.4100, L501.9910 ####[facility] [address] [place], [address] Eosinophils/100 WBC (Bld) 9.2 % High 0-5 [facility] Comment on above: Performed By: #### L 501.9520, L500.4050, L100.0100, L500.4100, L501.9910 ####[facility] [address] [place], [address] Erythrocyte distribution width (RBC) [Ratio] 12.3 % Normal 11.6-14.6 [facility] Comment on above: Performed By: #### L 501.9520, L500.4050, L100.0100, L500.4100, L501.9910 ####[facility] [address] [place], [address] Hematocrit (Bld) [Volume fraction] 43.9 % Normal 40-54 [facility] Comment on above: Performed By: #### L 501.9520, L500.4050, L100.0100, L500.4100, L501.9910 ####[facility] [address] [place], [address] Hemoglobin (Bld) [Mass/Vol] 14.4 g/dL Normal 13.0-16.5 [facility] Comment on above: Performed By: #### L 501.9520, L500.4050, L100.0100, L500.4100, L501.9910 ####[facility] [address] [place], [address] IG% 0.200 Normal 0.0-0.9 [facility] Comment on above: Result Comment: IG% - Immature Granulocytes (promyelocytes, myelocytes and metamyelocytes) > 1% indicates that a LEFT SHIFT is Present. Performed By: #### L 501.9520, L500.4050, L100.0100, L500.4100, L501.9910 ####[facility] [address] [place], [address] Lymphocytes/100 WBC (Bld) 24.7 % Normal 19-41 [facility] Comment on above: Performed By: #### L 501.9520, L500.4050, L100.0100, L500.4100, L501.9910 ####[facility] [address] [place], [address] MCH (RBC) [Entitic mass] 30.3 pg Normal 27.0-32.0 [facility] Comment on above: Performed By: #### L 501.9520, L500.4050, L100.0100, L500.4100, L501.9910 ####[facility] [address] [place], [address] MCHC (RBC) [Mass/Vol] 32.8 g/dL Normal 32-36 [facility] Comment on above: Performed By: #### L 501.9520, L500.4050, L100.0100, L500.4100, L501.9910 ####[facility] [address] [place], [address] MCV (RBC) [Entitic vol] 92.4 fL Normal 80-94 [facility] Comment on above: Performed By: #### L 501.9520, L500.4050, L100.0100, L500.4100, L501.9910 ####[facility] [address] [place], [address] Monocytes/100 WBC (Bld) 9.5 % Normal 0-10 [facility] Comment on above: Performed By: #### L 501.9520, L500.4050, L100.0100, L500.4100, L501.9910 ####[facility] [address] [place], [address] Neutrophils/100 WBC (Bld) 55.5 % Normal 47-70 [facility] Comment on above: Performed By: #### L 501.9520, L500.4050, L100.0100, L500.4100, L501.9910 ####[facility] [address] [place], [address] Nucleated RBC (Bld) [#/Vol] 0 10*3/uL Normal 0-5 [facility] Comment on above: Performed By: #### L 501.9520, L500.4050, L100.0100, L500.4100, L501.9910 ####[facility] [address] [place], [address] Platelet mean volume (Bld) [Entitic vol] 8.5 fL Normal 6.2-12.0 [facility] Comment on above: Performed By: #### L 501.9520, L500.4050, L100.0100, L500.4100, L501.9910 ####[facility] [address] [place], [address] Platelets (Bld) [#/Vol] 300 10*3/uL Normal 150-450 [facility] Comment on above: Performed By: #### L 501.9520, L500.4050, L100.0100, L500.4100, L501.9910 ####[facility] [address] [place], [address] RBC (Bld) [#/Vol] 4.75 10*6/uL Normal 4.6-6.2 [facility] Comment on above: Performed By: #### L 501.9520, L500.4050, L100.0100, L500.4100, L501.9910 ####[facility] [address] [place], [address] RDW SD 42.0 fl Normal 35.1-43.9 [facility] Comment on above: Performed By: #### L 501.9520, L500.4050, L100.0100, L500.4100, L501.9910 ####[facility] [address] [place], [address] WBC (Bld) [#/Vol] 5.6 10*3/uL Normal 4.4-11.0 [facility] Comment on above: Performed By: #### L 501.9520, L500.4050, L100.0100, L500.4100, L501.9910 ####[facility] [address] [place], [address] Comprehensive Metabolic [facility] 02-02-2024 Albumin [Mass/Vol] 3.7 g/dL Normal 3.2-5.0 [facility] Comment on above: Performed By: #### L 501.9520, L500.4050, L100.0100, L500.4100, L501.9910 ####[facility] [address] [place], [address] Albumin/Globulin [Mass ratio] 0.9 {ratio} Normal 0.9-2.4 [facility] Comment on above: Performed By: #### L 501.9520, L500.4050, L100.0100, L500.4100, L501.9910 ####[facility] [address] [place], [address] ALK P 54 U/L Normal 45-117 [facility] Comment on above: Performed By: #### L 501.9520, L500.4050, L100.0100, L500.4100, L501.9910 ####[facility] [address] [place], [address] ALT [Catalytic activity/Vol] 31 U/L Normal 16-61 [facility] Comment on above: Performed By: #### L 501.9520, L500.4050, L100.0100, L500.4100, L501.9910 ####[facility] [address] [place], [address] AST [Catalytic activity/Vol] 22 U/L Normal 15-37 [facility] Comment on above: Performed By: #### L 501.9520, L500.4050, L100.0100, L500.4100, L501.9910 ####[facility] [address] [place], [address] Bilirubin [Mass/Vol] 0.40 mg/dL Normal 0.20-1.[address] [facility] Comment on above: Result Comment: For patients on eltrombopag therapy, use of Dimension Damon TBIL is not recommended. Performed By: #### L 501.9520, L500.4050, L100.0100, L500.4100, L501.9910 ####[facility] [address] [place], [address] BUN/CRE 15.3 RATIO Normal 10-20 [facility] Comment on above: Performed By: #### L 501.9520, L500.4050, L100.0100, L500.4100, L501.9910 ####[facility] [address] [place], [address] CA,Total 9.2 mg/dL Normal 8.5-10.1 [facility] Comment on above: Performed By: #### L 501.9520, L500.4050, L100.0100, L500.4100, L501.9910 ####[facility] [address] [place], [address] Chloride [Moles/Vol] 104 mmol/L Normal 98-[address] [facility] Comment on above: Performed By: #### L 501.9520, L500.4050, L100.0100, L500.4100, L501.9910 ####[facility] [address] [place], [address] CO2 [Moles/Vol] 30.0 mmol/L Normal 21.0-32.0 [facility] Comment on above: Performed By: #### L 501.9520, L500.4050, L100.0100, L500.4100, L501.9910 ####[facility] [address] [place], [address] Creatinine [Mass/Vol] 1.11 mg/dL Normal 0.70-1.30 [facility] Comment on above: Result Comment: The validity of the calculated GFR GFRAA in patients over 70 years has not been determined. Clinical correlation is essential. Performed By: #### L 501.9520, L500.4050, L100.0100, L500.4100, L501.9910 ####[facility] [address] [place], [address] EST GFR - AA 87 mL/min Normal >60 [facility] Comment on above: Result Comment: Afri can Kyrgyz GFR Calc Performed By: #### L 501.9520, L500.4050, L100.0100, L500.4100, L501.9910 ####[facility] [address] [place], [address] GAP 4 Low 5-15 [facility] Comment on above: Performed By: #### L 501.9520, L500.4050, L100.0100, L500.4100, L501.9910 ####[facility] [address] [place], [address] GFR/1.73 sq M.predicted among non-blacks MDRD (S/P/Bld) [Vol rate/Area] 72 mL/min/{1.73_m2} Normal >60 [facility] Comment on above: Result Comment: Non- GFR Calc Performed By: #### L 501.9520, L500.4050, L100.0100, L500.4100, L501.9910 ####[facility] [address] [place], [address] Globulin (S) [Mass/Vol] 4.1 g/dL Normal 2.2-4.2 [facility] Comment on above: Performed By: #### L 501.9520, L500.4050, L100.0100, L500.4100, L501.9910 ####[facility] [address] [place], [address] Glucose [Mass/Vol] 122 mg/dL High 74-106 [facility] Comment on above: Result Comment: Fast ing Glucose result from 100 to 125 mg/dL suggests IMPAIRED HOMEOSTASIS per A.D.A. criteria. Performed By: #### L 501.9520, L500.4050, L100.0100, L500.4100, L501.9910 ####[facility] [address] [place], [address] Potassium [Moles/Vol] 4.8 mmol/L Normal 3.5-5.1 [facility] Comment on above: Performed By: #### L 501.9520, L500.4050, L100.0100, L500.4100, L501.9910 ####[facility] [address] [place], [address] Sodium [Moles/Vol] 138 mmol/L Normal 136-145 [facility] Comment on above: Performed By: #### L 501.9520, L500.4050, L100.0100, L500.4100, L501.9910 ####[facility] [address] [place], [address] T PROT 7.8 g/dL Normal 6.4-8.2 [facility] Comment on above: Performed By: #### L 501.9520, L500.4050, L100.0100, L500.4100, L501.9910 ####[facility] [address] [place], [address] Urea nitrogen [Mass/Vol] 17 mg/dL Normal 7-18 [facility] Comment on above: Performed By: #### L 501.9520, L500.4050, L100.0100, L500.4100, L501.9910 ####[facility] [address] [place], [address] Lipid Profileon 02-02-2024 Cholesterol [Mass/Vol] 263 mg/dL High 200 [facility] Comment on above: Result Comment: <200 mg/dL Desirable 200-240 mg/dL Borderline >240 mg/dL High Risk Performed By: #### L 501.9520, L500.4050, L100.0100, L500.4100, L501.9910 ####[facility] [address] [place], [address] Cholesterol in HDL [Mass/Vol] 56 mg/dL Normal [facility] Comment on above: Result Comment: The drugs N-Acetylcysteine and Metamizole may falsely depress this assay. Reference Range HDL <40 mg/dL Low HDL Cholesterol HDL >or= 60 mg/dL High HDL Cholesterol Performed By: #### L 501.9520, L500.4050, L100.0100, L500.4100, L501.9910 ####[facility] [address] [place], [address] Cholesterol in LDL [Mass/Vol] 184 mg/dL High 0-130 [facility] Comment on above: Performed By: #### L 501.9520, L500.4050, L100.0100, L500.4100, L501.9910 ####[facility] [address] [place], [address] Cholesterol in VLDL [Mass/Vol] 23 mg/dL Normal 5-40 [facility] Comment on above: Performed By: #### L 501.9520, L500.4050, L100.0100, L500.4100, L501.9910 ####[facility] [address] [place], [address] Triglyceride [Mass/Vol] 115 mg/dL Normal [facility] Comment on above: Result Comment: The drugs N-Acetylcysteine and Metamizole may falsely depress this assay. Serum Triglycerides Reference Interval Normal <150 mg/dL Borderline high 150 - 199 mg/dL High 200 - 499 mg/dL Very High > or = 500 mg/dL Performed By: #### L 501.9520, L500.4050, L100.0100, L500.4100, L501.9910 ####[facility] [address] [place], [address] PSA,Total - Annual Screenon 02-02-2024 PSA,TOT SCREEN 1.22 ng/mL Normal 0.00-4.00 [facility] Comment on above: Result Comment: This test was performed using the TPSA assay method for the [employer] chemistry system. Values obtained with different assay methods cannot be used interchangably. When changing PSA assays in the course of monitoring a patient, additional sequential testing should be carried out to confirm baseline values. Performed By: #### L 501.9520, L500.4050, L100.0100, L500.4100, L501.9910 ####[facility] [address] [place], [address] Thyroid Stim Hormone (TSH)on 02-02-2024 TSH 1.720 uIU/mL Normal 0.358-3.740 [facility] Comment on above: Performed By: #### L 501.9520, L500.4050, L100.0100, L500.4100, L501.9910 ####[facility] [address] [place], [address] Absolute lymphocyte countOrd ered By: Luis Carter on 01-27-2023 Lymphocytes Auto (Unsp spec) [#/Vol] 1.12 10*3/uL 0.83-4.51 [facility] Basophil percentageOrdered B y: Luis Carter on 01-27-2023 Basophils/100 WBC (Bld) 0.5 % 0-1 [facility] Bilirubin [Mass/Vol] 0.60 mg/dL 0.20-1.[address] [facility] Comment on above: For patients on eltr ombopag therapy, use of Dimension Damon TBIL is not recommended. Chloride [Moles/Vol] 103 mmol/L 98-[address] [facility] Eosinophils/100 WBC (Bld) 5.4 % 0-5 [facility] Glucose [Mass/Vol] 121 mg/dL 74-106 [facility] Comment on above: Fasting Glucose resu lt from 100 to 125 mg/dL suggests IMPAIRED HOMEOSTASIS per A.D.A. criteria. Neutrophils (Bld) [#/Vol] 4.1 10*3/uL 2.0-7.7 [facility] Neutrophils/100 WBC (Bld) 64.7 % 47-70 [facility] Potassium [Moles/Vol] 4.0 mmol/L 3.5-5.1 [facility] Protein [Mass/Vol] 7.6 g/dL 6.4-8.2 [facility] Sodium [Moles/Vol] 136 mmol/L 136-145 [facility] WBC (Bld) [#/Vol] 6.3 10*3/uL 4.4-11.0 [facility] Blood erythrocytes count (nu mber/volume)Ordered By: Luis Carter on 01-27-2023 RBC (Bld) [#/Vol] 4.68 10*6/uL 4.6-6.2 [facility] Blood hemoglobin measurement (mass/volume)Ordered By: Luis Carter on 01-27-2023 Hemoglobin (Bld) [Mass/Vol] 14.2 g/dL 13.0-16.5 [facility] Blood lymphocytes/100 leukoc ytesOrdered By: Luis Carter on 01-27-2023 Lymphocytes/100 WBC (Bld) 17.9 % 19-41 [facility] Blood monocytes/100 leukocyt esOrdered By: Luis Carter on 01-27-2023 Monocytes/100 WBC (Bld) 11.3 % 0-10 [facility] Blood platelet mean volumeOr dered By: Luis Carter on 01-27-2023 Platelet mean volume (Bld) [Entitic vol] 8.9 fL 6.2-12.0 [facility] Determination of erythrocyte mean corpuscular volume (MCV)Ordered By: Luis Carter on 01-27-2023 MCV (RBC) [Entitic vol] 91.7 fL 80-94 [facility] Hematocrit Auto (Bld) [Volum e fraction][facility]: [facility] 01-27-2023 Hematocrit (Bld) [Volume fraction] 42.9 % 40-54 [facility] Laboratory - Chemistry and C hemistry - challengeOrdered By: Luis Carter on 01-27-2023 ALP [Catalytic activity/Vol] 61 U/L 45-117 [facility] ALT [Catalytic activity/Vol] 36 U/L 16-61 [facility] CO2 [Moles/Vol] 30.0 mmol/L 21.0-32.0 [facility] Globulin (S) [Mass/Vol] 3.9 g/dL 2.2-4.2 [facility] Urea nitrogen/Creatinine [Mass ratio] 16.5 mg/mg 10-20 [facility] Laboratory - Hematology and Cell countsOrdered By: Luis Carter on 01-27-2023 Erythrocyte distribution width (RBC) [Entitic vol] 41.9 fL 35.1-43.9 [facility] Erythrocyte distribution width (RBC) [Ratio] 12.6 % 11.6-14.6 [facility] Immature granulocytes/100 WBC (Bld) 0.200 % 0.0-0.9 [facility] Comment on above: IG% - Immature Granu locytes (promyelocytes, myelocytes and metamyelocytes) > 1% indicates that a LEFT SHIFT is Present. MCH (RBC) [Entitic mass] 30.3 pg 27.0-32.0 [facility] Nucleated RBC/100 WBC (Bld) [Ratio] 0 % 0-5 [facility] MCHC Auto (RBC) [Mass/Vol]Or dered By: Luis Carter on 01-27-2023 MCHC (RBC) [Mass/Vol] 33.1 g/dL 32-36 [facility] No Panel InformationOrdered By: Luis Carter on 01-27-2023 Estimated GFR (MDRD) Amer 95 mL/min >60 [facility] Comment on above: GFR Calc Estimated GFR (MDRD) Non-Af Amer 79 mL/min >60 [facility] Comment on above: Non- GFR Calc Prostate Specific Antigen Screen 1.03 ng/mL 0.00-4.00 [facility] Comment on above: This test was perfor med using the TPSA assay method for the[employer] chemistry system. Values obtained with differentassay methods cannot be used interchangably.When changing PSA assays in the course of monitoring apatient, additional sequential testing should be carriedout to confirm baseline values. Thyroid Stimulating Hormone (TSH) 1.20 uIU/mL 0.358-3.74 [facility] Platelets bldOrdered By: Luis Carter on 01-27-2023 Platelets (Bld) [#/Vol] 302 10*3/uL 150-450 [facility] Serum or plasma albumin nima urement (mass/volume)Ordered By: Luis Carter on 01-27-2023 Albumin [Mass/Vol] 3.7 g/dL 3.2-5.0 [facility] Serum or plasma albumin/glob ulin mass ratioOrdered By: Luis Carter on 01-27-2023 Albumin/Globulin [Mass ratio] 0.9 {ratio} 0.9-2.4 [facility] Serum or plasma calcium nima urement (mass/volume)Ordered By: Luis Carter on 01-27-2023 Calcium [Mass/Vol] 8.9 mg/dL 8.5-10.1 [facility] Serum or plasma creatinine m easurement (mass/volume)Ordered By: Luis Carter on 01-27-2023 Creatinine [Mass/Vol] 1.03 mg/dL 0.70-1.30 [facility] Comment on above: The validity of the calculated GFR & GFRAA in patients over 70 years has not been determined. Clinical correlation is essential. Serum or plasma urea nitroge n measurement (mass/volume)Ordered By: Luis Carter on 01-27-2023 Urea nitrogen [Mass/Vol] 17 mg/dL 7-18 [facility] Thin prep Papanicolaou smear with manual screeningOrdered By: Luis Carter on 01-27-2023 Thin prep Papanicolaou smear with manual screening 21 U/L 15-37 [facility] Thin prep Papanicolaou smear with manual screening 3 5-15 [facility] CNPNon 11-27-2022 CNPN Telephone (INTMWS) ---- DEMETRIUS PENA ([id number]) 1965 M Date Time Provider Department 11/27/22 [...] Fully Assessed Reason for Visit: Patient Question [3617] Prescriptions as of 12/18/2022 - gabapentin (NEURONTIN) 300 mg capsule Take 300 mg by mouth once daily. - diclofenac, EC, (VOLTAREN) 75 mg EC tablet Take 75 mg by mouth once daily. - metaxalone (SKELAXIN) 800 mg tablet Take 800 mg by mouth once daily. Problem List As Of Date: 11/27/2022 (None) Encounter Status:Closed by MADDISON GALE on 11/27/22 [facility] CNNURSEon 06-28-2022 CNNURSE Nurse Visit (PODIWS) ---- DEMETRIUS PENA ([id number]) 1965 M Date Time Provider Department 06/28/22 2:00 PM NURSE/[facility] PODIWS During your visit today, we [...] Status:Closed by CARRI HUNT on 06/28/22 Normal [facility] Absolute lymphocyte counton 01-24-2022 Lymphocytes Auto (Unsp spec) [#/Vol] 1.21 10*3/uL 0.83-4.51 [facility] Work Phone: Basophil percentageon 2021 Basophils/100 WBC (Bld) 0.7 % 0-1 [facility] Work Phone: [phone] Bilirubin [Mass/Vol] 0.40 mg/dL 0.20-1.[address] [facility] Work Phone: [phone] Comment on above: For patients on eltr ombopag therapy, use of Dimension Damon TBIL is not recommended. Chloride [Moles/Vol] 103 mmol/L 98-[address] [facility] Work Phone: Eosinophils/100 WBC (Bld) 4.3 % 0-5 [facility] Work Phone: [phone] Glucose [Mass/Vol] 89 mg/dL 74-106 [facility] Work Phone: [phone] Neutrophils (Bld) [#/Vol] 3.5 10*3/uL 2.0-7.7 [facility] Work Phone: [phone] Neutrophils/100 WBC (Bld) 62.6 % 47-70 [facility] Work Phone: Potassium [Moles/Vol] 4.5 mmol/L 3.5-5.1 [facility] Work Phone: Protein [Mass/Vol] 7.4 g/dL 6.4-8.2 [facility] Work Phone: Sodium [Moles/Vol] 140 mmol/L 136-145 [facility] Work Phone: WBC (Bld) [#/Vol] 5.5 10*3/uL 4.4-11.0 [facility] Work Phone: Blood erythrocytes count (nu mber/volume)on 01-24-2022 RBC (Bld) [#/Vol] 4.48 10*6/uL 4.6-6.2 [facility] Work Phone: Blood hemoglobin measurement (mass/volume)on 01-24-2022 Hemoglobin (Bld) [Mass/Vol] 14.0 g/dL 13.0-16.5 [facility] Work Phone: Blood lymphocytes/100 leukoc yteson 01-24-2022 Lymphocytes/100 WBC (Bld) 21.9 % 19-41 [facility] Work Phone: Blood monocytes/100 leukocyt eson 01-24-2022 Monocytes/100 WBC (Bld) 10.3 % 0-10 [facility] Work Phone: Blood platelet mean volumeon 01-24-2022 Platelet mean volume (Bld) [Entitic vol] 9.0 fL 6.2-12.0 [facility] Work Phone: Determination of erythrocyte mean corpuscular volume (MCV)on 01-24-2022 MCV (RBC) [Entitic vol] 94.0 fL 80-94 [facility] Work Phone: [phone] Hematocrit Auto (Bld) [Volum e fraction]on 01-24-2022 Hematocrit (Bld) [Volume fraction] 42.1 % 40-54 [facility] Work Phone: Laboratory - Chemistry and C hemistry - challengeon 01-24-2022 ALP [Catalytic activity/Vol] 53 U/L 45-117 [facility] Work Phone: ALT [Catalytic activity/Vol] 41 U/L 16-61 [facility] Work Phone: CO2 [Moles/Vol] 32.0 mmol/L 21.0-32.0 [facility] Work Phone: Globulin (S) [Mass/Vol] 3.7 g/dL 2.2-4.2 [facility] Work Phone: Urea nitrogen/Creatinine [Mass ratio] 18.3 mg/mg 10-20 [facility] Work Phone: Laboratory - Hematology and Cell countson 01-24-2022 Erythrocyte distribution width (RBC) [Entitic vol] 41.7 fL 35.1-43.9 [facility] Work Phone: Erythrocyte distribution width (RBC) [Ratio] 12.0 % 11.6-14.6 [facility] Work Phone: Immature granulocytes/100 WBC (Bld) 0.200 % 0.0-0.9 [facility] Work Phone: Comment on above: IG% - Immature Granu locytes (promyelocytes, myelocytes and metamyelocytes) > 1% indicates that a LEFT SHIFT is Present. MCH (RBC) [Entitic mass] 31.3 pg 27.0-32.0 [facility] Work Phone: Nucleated RBC/100 WBC (Bld) [Ratio] 0 % 0-5 [facility] Work Phone: MCHC Auto (RBC) [Mass/Vol]on 01-24-2022 MCHC (RBC) [Mass/Vol] 33.3 g/dL 32-[address] [facility] Work Phone: No Panel Informationon 01-24 Estimated GFR (MDRD) Amer 84 mL/min >60 [facility] Work Phone: Comment on above: GFR Calc Estimated GFR (MDRD) Non-Af Amer 70 mL/min >60 [facility] Work Phone: Comment on above: Non- GFR Calc Prostate Specific Antigen Screen 1.30 ng/mL 0.00-4.00 [facility] Work Phone: Comment on above: This test was perfor med using the TPSA assay method for [employer] chemistry system. Values obtained with differentassay methods cannot be used interchangably.When changing PSA assays in the course of monitoring apatient, additional sequential testing should be carriedout to confirm baseline values. Thyroid Stimulating Hormone (TSH) 1.23 uIU/mL 0.358-3.74 [facility] Work Phone: Platelets bldon 01-24-2022 Platelets (Bld) [#/Vol] 307 10*3/uL 150-450 [facility] Work Phone: Serum or plasma albumin nima urement (mass/volume)on 01-24-2022 Albumin [Mass/Vol] 3.7 g/dL 3.2-5.0 [facility] Work Phone: Serum or plasma albumin/glob ulin mass ratioon 01-24-2022 Albumin/Globulin [Mass ratio] 1.0 {ratio} 0.9-2.4 [facility] Work Phone: Serum or plasma calcium nima urement (mass/volume)on 01-24-2022 Calcium [Mass/Vol] 8.9 mg/dL 8.5-10.1 [facility] Work Phone: Serum or plasma creatinine m easurement (mass/volume)on 01-24-2022 Creatinine [Mass/Vol] 1.15 mg/dL 0.70-1.30 [facility] Work Phone: Comment on above: The validity of the calculated GFR & GFRAA in patients over 70 years has not been determined. Clinical correlation is essential. Serum or plasma urea nitroge n measurement (mass/volume)on 01-24-2022 Urea nitrogen [Mass/Vol] 21 mg/dL 12-24 [facility] Work Phone: Thin prep Papanicolaou smear with manual screeningon 01-24-2022 Thin prep Papanicolaou smear with manual screening 25 U/L 15-37 [facility] Work Phone: Thin prep Papanicolaou smear with manual screening 5 5-15 [facility] Work Phone: No Panel Informationon 10-08 [facility] Vital Signs Date Time Vital Sign Value Performing Clinician Faci lity 11-26-2024 06:35-0400 Body mass index (BMI) [Ratio] 30 kg/m2 Dr. Luis Carter MD Work Phone: [facility] 11-26-2024 06:35-0400 Body weight 87.[address] Luis Carter MD Work Phone: [facility] 11-26-2024 06:35-0400 Diastolic blood pressure 79 mm[Hg] Dr. Luis Carter MD Work Phone: [facility] 11-26-2024 06:35-0400 Heart rate 70 /min Dr. Luis Carter MD Work Phone: [facility] 11-26-2024 06:35-0400 Respiratory rate 18 /min Dr. Luis Carter MD Work Phone: [facility] 11-26-2024 06:35-0400 SaO2% (BldA) [Mass fraction] 96 % Dr. Luis Carter MD Work Phone: [facility] 11-26-2024 06:35-0400 Systolic blood pressure 151 mm[Hg] Dr. Luis Carter MD Work Phone: [facility] 10-20-2024 08:35-0400 Body height 170.[address] Luis Carter MD Work Phone: [facility] 10-20-2024 08:35-0400 Body mass index (BMI) [Ratio] 29 kg/m2 Dr. Luis Carter MD Work Phone: [facility] 10-20-2024 08:35-0400 Body weight 83.[address] Luis Carter MD Work Phone: [facility] 10-20-2024 08:35-0400 Diastolic blood pressure 62 mm[Hg] Dr. Luis Carter MD Work Phone: [facility] 10-20-2024 08:35-0400 Heart rate 64 /min Dr. Luis Carter MD Work Phone: [facility] 10-20-2024 08:35-0400 Respiratory rate 20 /min Dr. Luis Carter MD Work Phone: [facility] 10-20-2024 08:35-0400 Systolic blood pressure 138 mm[Hg] Dr. Luis Carter MD Work Phone: [facility] Encounters Encounter Date Encounter Type Care Provider Facility Start: 11-29-2024 ambulatory [facility] Facility:[facility] Start: 11-26-2024 End: 11-26-2024 Patient encounter procedure Danyell Quintero NP-[facility] Work Phone: Start: 11-26-2024 End: 11-26-[address] Luis Carter MD Work Phone: [facility] Work Phone: Start: 11-16-2024 End: 11-16-[address] Luis Carter MD Work Phone: [facility] Work Phone: Start: 11-16-2024 End: 11-16-[address] August Oconnor MD -Laboratory Work Phone: Start: 11-16-2024 End: 11-16-2024 ambulatory August Oconnor Facility:[facility] Start: 10-20-2024 End: 10-20-[address] August Oconnor MD -[facility] Work Phone: Start: 10-20-2024 End: 10-20-[address] Luis Carter MD Work Phone: [facility] Work Phone: Start: 09-10-2024 Non-patient / Non-visit [facility]. Eriberto faulkner MD [facility] Start: 09-10-2024 End: 09-10-[address] Luis Carter MD Work Phone: [facility] Work Phone: Start: 09-10-2024 End: 09-10-[address] Luis Carter MD -Cardiovascular Services Work Phone: Start: 09-10-2024 End: 09-10-2024 ambulatory [facility] Juliane Facility:[facility] Start: 08-17-2024 End: 08-17-[address] Luis Carter MD Work Phone: [facility] Work Phone: Start: 08-17-2024 End: 08-17-[address] Luis Carter MD -Laboratory, y Office [address] [place] [address] Start: 08-17-2024 End: 08-17-2024 ambulatory Luis [facility] Juliane Facility:[facility] Start: 02-02-2024 End: 02-02-2024 ambulatory [facility] Juliane Facility:[facility] Start: 08-06-2023 End: 08-06-2023 ambulatory [facility] Work Phone: Start: 08-06-2023 End: 08-06-2023 Patient encounter procedure [facility] Work Phone: Start: 02-03-2023 Non-patient / Non-visit Dr. Nadeem Carter Work Phone: [facility] Start: 01-31-2023 End: 01-31-[address] Luis Carter Work Phone: [facility] Work Phone: Start: 01-31-2023 End: 01-31-2023 Patient encounter procedure [facility]-Pulmonary Services/Neurology Work Phone: Start: 01-27-2023 End: 01-27-2023 ambulatory [facility] Work Phone: Start: 01-27-2023 End: 01-27-2023 Patient encounter procedure [facility], y Office 3rd Flr Start: 11-27-2022 Telephone encounter Rodolfo sanders MD Work Phone: [facility] [place] Comment on above: Patient Question Start: 06-28-2022 End: 06-28-2022 ambulatory NIDHI C CALL Facility:[facility] Start: 06-28-2022 End: 06-28-2022 Nursing evaluation of patient and report Nurse/[facility] Work Phone: Podiatry Comment on above: Arthritis of foot (P rimary Dx); Pes planus of both feet Start: 01-24-2022 End: 01-24-2022 ambulatory [facility] Work Phone: Start: 01-24-2022 End: 01-24-2022 [facility] Start: 10-08-2021 End: 10-08-2021 Subsequent hospital visit by physician [facility] Work Phone: Radiology Comment on above: Arthritis [...] Start: 11-26-2024 Evaluation of diagnostic study results [facility] Start: 10-20-2024 Patient referral [facility] Work Phone: Start: 10-20-2024 Evaluation of diagnostic study results [facility] Start: 02-07-2023 Influenza vaccination [facility] Start: 06-09-2022 DEPRESSION ASSESSMENT DEPRESSION ASSESSMENT [facility] Start: 02-07-2022 Influenza vaccination [facility] Start: 11-09-2020 COVID-19 VACCINE (2 - Booster for Kezia series) COVID-19 VACCINE (2 - Booster for Kezia series) [facility] Start: 09-21-2019 PROSTATE CANCER SCREENING DISCUSSION PROSTATE CANCER SCREENING DISCUSSION [facility] Start: 2014 SHINGRIX VACCINE (1 of 2) SHINGRIX VACCINE (1 of 2) [facility] Start: 2009 COLOGUARD (FIT-DNA) COLOGUARD (FIT-DNA) [facility] Start: 2009 Colonoscopy COLONOSCOPY [facility] Start: 2009 COLORECTAL CANCER SCREENING COLORECTAL CANCER SCREENING [facility] Start: [address] COLONOGRAPHY [facility] Start: 2009 DIABETES SCREEN DIABETES SCREEN [facility] Start: 2009 FECAL OCCULT BLOOD FECAL OCCULT BLOOD [facility] Start: 2009 SIGMOIDOSCOPY SIGMOIDOSCOPY [facility] Start: 09-21-1999 LIPID SCREEN LIPID SCREEN [facility] Start: 09-21-1983 Urine microalbumin profile DTAP,TDAP,TD (1 - Tdap) [facility] Start: 1982 HEPATITIS C SCREENING HEPATITIS C SCREENING [facility] Start: 1982 HIV SCREENING HIV SCREENING [facility] Start: 1976 Adult depression screening assessment DEPRESSION SCREENING [facility] Start: 1965 HEPATITIS B (1 of 3 - 3-dose series) HEPATITIS B (1 of 3 - 3-dose series) [facility] Patient referral [facility] Work Phone: Thyroid stimulating hormone measurement [facility] Payers Date Payer Category Payer Unknown [id number] 2024 Self-pay [id number] 2024 Unknown [id number] 2022 Unknown ANTHEM BLUE ACCE SS PPO [id number] 2022-Present [phone] [address] [place] [address] PPO [id number] 2021 Private Health Insurance [employer] A ETNA MANAGED CHOICE POS [id number] 2021-Present [phone] [address] [place] [address] POS [id number] 2021 Private Health Insurance [id number] 2021 Private Health Insurance [employer] A ETNA MANAGED CHOICE POS [id number] 2021-Present [phone] [address] [place] [address] POS [id number] 2006 Unknown [facility] *DO NOT USE* [id number] Unknown ANTHEM [id number] Unknown ANTHEM [id number] Unknown [id number] 62 Unknown [id number] 62 Unknown [id number] 62 Unknown [id number] 62 Unknown [id number] 62 Unknown [id number] 62 Unknown [id number] 62 Unknown [id number] 62 Unknown [id number] 62 Social History Date Type Detail Facility Start: 06-23-2019 [facility] History of tobacco use Chews Tobacco [facility] Start: 10-08-2021 Alcohol intake Current drinke r of alcohol (finding) [facility] Start: 1965 Sex Assigned At Not on file [facility] Start: 09-28-2021 End: 10-08-2021 Exposure to SARS-CoV-2 (event) Not sure [facility] Start: 1965 Sex Assigned At Male [facility] Start: 06-23-2019 Tobacco use and exposure User of smokeless tobacco [facility] if ever smoked [facility] Work Phone: Start: 08-26-2024 End: 09-16-2024 Sex Male (finding) [facility] Start: 09-03-2024 Tobacco smoking stat us IDIS Smokes tobacco daily (finding) [facility] Start: 10-20-2024 End: 11-26-2024 Tobacco smoking status NHIS Ex-smoker (finding) [facility] Clinical Notes 10-08-2021 to 10-20-2024 Note Date & Type Note Facility 10-20-2024 Evaluation note Diagnosis Onset Date Resolution Asthma chronic October 20, 2024 9:59am Carotid artery disease chronic Ma 2024 9:59am Dyslipidemia chronic October 20 9:59am ETOH abuse chronic October 20, 2024 9:59am Lightheadedness chronic October 20, 2024 9:59am Syncope resolved October 20, 2024 9:59am [facility] Work Phone: 1(578) 741-332905-14-2025 Evaluation note* Diagnosis Onset Date Resolution Status Admit Date Asthma chronic October 20, 2024 9:59am Carotid artery disease chronic Ma 2024 9:59am Dyslipidemia chronic October 20 9:59am ETOH abuse chronic October 20, 2024 9:59am Lightheadedness chronic October 20, 2024 9:59am Syncope resolved October 20, 2024 9:59am Sick sinus syndrome with tachycardia acute November 26, 2024 11:24am [facility] Work Phone: 1(254) 849-776605-14-2025 Progress [facility] [address] [place] [address] OFFICE VISIT Date of Service: 10/20/24 MR#: [id number] Acct: [id number] Name: DEMETRIUS PENA Rep #: [id number] : 1965 Provider: Dr. 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 Luis Carter MD ~ [facility]05-14-2025 Progress note Author August Oconnor [facility] Note Date/Time October 20, 2024 10:40 am [facility] [place] [facility] [address] [place] [address]. [address] [place] [address] OFFICE VISIT Date of Service: 10/20/24 MR#: [id number] Acct: [id number] Name: DEMETRIUS PENA Rep #: [id number] : 1965 Provider: Dr. Zack Oconnor MD Age/Sex: 59/M [place] [facility] Status: Signed HPI HPI History of Present [...] Source NIBP Intake Visit Reasons: SYNCOPE (JULIANE) Vat Skimmer Required: No Accompanied by: Self Is patient [...] applicable) CC: Dr. Luis Carter MD ~ [facility] Work Phone: 1(591) 133-454608-28-2023 Procedure [facility] 11-27-2022 Miscellaneous Notes* Telephone Encounter - Maddison [...] pt can be established. documented in this encounterUniversity [facility]01-20-2023 NoteHNO ID: [id number] Author: Carri Hunt LPN Service: ? Author Type: LICENSED NURSE Type: Progress Notes Filed: 06/28/2022 2:19 PM Note Text: Per Demetrius Wilde was provided with powerstep original inserts, size 9, and instructed/educated in its application, wear, and care. All questions were answered, and patient was able to demonstrate competence with the necessary skills to utilize the above equipment. [facility] History of Present illness Narrative* Carri Hunt LPN - 06/28/2022 2:19 PM EST Per Demetrius Wilde was provided with powerstep original inserts, size 9, and instructed/educated in its application, wear, and care. All questions were answered, and patient was able to demonstrate competence with the necessary skills to utilize the above equipment. Carri Hunt LPN documented in this encounterUniversity Hospitals [facility]05-02-2022 History of Present illness Narrative* Naila Diaz [...] 2.5 years ago and was treated at [facility] with epidural. That epidural injection helped his pain in back and legs but the pain in his foot did not relieve. Patient was prescribed gabapentin and voltaren. The gabapentin and voltaren did help. [facility] The new pain specialist feels he needs another epidural injection . Patient is not interested in another injection. Patient new specialist feels his pain is related to drop foot from his back and he will not treat him fpc with neurontin or voltaren, rather recommends epidural. [...] today Corbin Aly DPM Podiatry [address] [facility] [address] Dept: [phone] Dept documented in this encounterUniversity Hospitals [facility]05-02-2022 History of Present illness Narrative* RT Mary [...] 08, 2021 10:35 AM documented in this encounterUniversity Hospitals [facility] Center05-02-2022 Instructions* Patient Instructions* Corbin Aly - 10/08/2021 10:18 AM EDT Powerstep Original Full length. Can purchase at [employer] here in [place], [employer] in [place] or [place]. Also can find in [place] in [facility]. Powersteps can also be purchased online, starting [...] consider injection under xray documented in this encounterUniversity Hospitals [facility] CenterEval[facility]* Diagnosis Arthritis of foot- Primary Unspecified arthropathy, ankle and foot Left foot drop Other acquired deformity of ankle and foot Neuropathy Mononeuritis of unspecified site Pes planus of both feet documented in this encounter [facility]* Diagnosis Arthritis of foot Unspecified arthropathy, ankle and foot Pes planus of both feet documented in this encounter [facility] noteNo assessment information availableWProvidence Hospital Work Phone: Evaluation note* Diagnosis Arthritis of foot- Primary Unspecified arthropathy, ankle and foot Pes planus of both feet documented in this encounter [facility]* Diagnosis Onset Date Resolution Status Admit Date Asthma chronic October 20, 2024 9:59am Carotid artery disease chronic Ma y 2024 9:59am Dyslipidemia chronic October 20 9:59am ETOH abuse chronic October 20, 2024 9:59am Lightheadedness chronic October 20, 2024 9:59am Syncope resolved October 20, 2024 9:59am [facility] Work Phone: Reason for referral (narrative)* Diagnostic Procedure Only (Routine) - Closed Specialty Diagnoses / Procedures Referred By Contac t Referred To Contact XR IMAGING Diagnoses Arthritis of foot Pes planus of both feet Procedures XR FOOT GENERAL 3V AP/LAT/OBL BILATERAL RADEX FOOT COMPLETE MINIMUM 3 VIEWS [address] [place] [address] Xr Imaging Referral ID Status Reason Start Date Expiration Date V isits Requested Visits Authorized [id number] Closed Auto-Generate d Referral 10/08/2021 11/07/2022 1 1 [facility] for referral (narrative)* Diagnostic Procedure Only (Routine) - Closed Specialty Diagnoses / Procedures Referred By Contac t Referred To Contact XR IMAGING Diagnoses Arthritis of foot Pes planus of both feet Procedures XR FOOT GENERAL 3V AP/LAT/OBL BILATERAL RADEX FOOT COMPLETE MINIMUM 3 VIEWS Coribn [address] [place] [address] Xr Imaging Referral ID Status Reason Start Date Expiration Date V isits Requested Visits Authorized [id number] Closed Auto-Generate d Referral 10/08/2021 11/07/2022 1 1 T [facility] for referral (narrative)No reason for referral information availableWProvidence Hospital Work Phone: Reyime for visit Narrative* Diagnostic Procedure Only (Routine) - Closed Specialty Diagnoses / Procedures Referred By Contac t Referred To Contact XR IMAGING Diagnoses Arthritis of foot Pes planus of both feet Procedures XR FOOT GENERAL 3V AP/LAT/OBL BILATERAL RADEX FOOT COMPLETE MINIMUM 3 VIEWS Corbin [address] [place] [address] Xr Imaging Referral ID Status Reason Start Date Expiration Date V isits Requested Visits Authorized [id number] Closed Auto-Generate d Referral 10/08/2021 11/07/2022 1 1 [facility] Family History No Family History Records Found [...] or prosecute any alcohol or drug abuse patient.[facility] CenterIn the event this information is protected by the Federal Confidentiality of Alcohol and Drug Abuse Patient Records regulations: The Federal rules restrict any use of the information to criminally investigate or prosecute any alcohol or drug abuse patient.[facility] CenterIn the event this information is protected by the Federal Confidentiality of Alcohol and Drug Abuse Patient Records regulations: The Federal rules restrict any use of the information to criminally investigate or prosecute any alcohol or drug abuse patient.[facility] CenterIn the event this information is protected by the Federal Confidentiality of Alcohol and Drug Abuse Patient Records regulations: The Federal rules restrict any use of the information to criminally investigate or prosecute any alcohol or drug abuse patient.[facility] Reason for Visit (unrecogniz ed section and content) Reason Comments New Pain Reason Comments Patient Question Care Teams (unrecognized sec tion and content) 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 Start Date End Date Call, Nidhi Kaur [facility] [place] [address] PCP - General 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 Start Date End Date Call, Nidhi [place] [address] PCP - General 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 Start Date End Date Call, Nidhi Kaur [facility], [place] [address] PCP - General 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 [facility] [employer] [facility]. provides no warranty or guarantee of the accuracy or completeness of information in this document.
[2024-11-30 03:19] VITALS: BP 165/76; PULSE 69; RESP 18; TEMP 36.4; O2SAT 98
--- NOTE | 2024-11-30 05:05 | RAD_ITS ---
PROCEDURE: CHEST 3 VIEW 11/30/2024 REASON FOR EXAM: POST PERMANENT ICD/PACEMAKER TECHNIQUE: CHEST 3 VIEW COMPARISON: 11/26/2024. FINDINGS: AICD is in good position. The lungs are expanded. There is no demonstrated parenchymal abnormality. There is no demonstrated pleural abnormality. Normal heart and pericardium. Normal mediastinum and jennyfer. Normal visualized pulmonary arteries. Normal visualized aortic arch and descending thoracic aorta. Normal visualized thoracic spine. Normal visualized ribs, clavicles, and shoulders. There is no demonstrated abnormality of the visualized soft tissue structures of the upper abdomen. RAD/Chest 3 View IMPRESSION: AICD is in good position. No evidence for acute abnormality. Reading Location: [place]
--- NOTE | 2024-11-30 05:05 | RAD_ITS ---
PROCEDURE: CHEST 3 VIEW 11/30/2024 REASON FOR EXAM: POST PERMANENT ICD/PACEMAKER TECHNIQUE: CHEST 3 VIEW COMPARISON: 11/26/2024. FINDINGS: AICD is in good position. The lungs are expanded. There is no demonstrated parenchymal abnormality. There is no demonstrated pleural abnormality. Normal heart and pericardium. Normal mediastinum and jennyfer. Normal visualized pulmonary arteries. Normal visualized aortic arch and descending thoracic aorta. Normal visualized thoracic spine. Normal visualized ribs, clavicles, and shoulders. There is no demonstrated abnormality of the visualized soft tissue structures of the upper abdomen. RAD/Chest 3 View IMPRESSION: AICD is in good position. No evidence for acute abnormality. Reading Location: [place]
[2024-11-30 08:25] VITALS: BP 174/84; PULSE 82; RESP 18; TEMP 36.6; O2SAT 98
[2024-11-30 08:28] VITALS: BP 174/84; PULSE 82; RESP 18; TEMP 36.6; O2SAT 98
[2024-11-30] MEDS: Aspirin E.C. 81 MG Tablet PO (08:29)
--- NOTE | 2024-11-30 09:41 | PN.CARD_ITS ---
Subjective Subjective Patient seen and evaluated. Appears to be doing well. No complaints at this time. Objective Data Vital Signs: Vital Signs Temp Pulse Resp BP Pulse Ox O2 Del Method 97.8 F 82 18 174/84 H 98 Room Air 11/30/24 08:28 11/30/24 08:28 11/30/24 08:28 11/30/24 08:28 11/30/24 08:28 11/30/24 08:28 Oxygen Delivery Method Room Air Weight: 184 lb 15.485 oz Body Mass Index (BMI) 29.0 Intake & Output: Intake and Output for Last 24 Hours 11/28/24 11/29/24 11/30/24 23:59 23:59 23:59 Output Total 1150 / 1150 950 / 950 Balance -1150 / -1150 -950 / -950 Lab / Micro Data 11/26/24 12:17 11/26/24 12:17 Cardiology Labs/Tests Rhythm: EKG: ECHO: Stress Test: Cardiac Cath: PCI: CT Surgery: Holter monitor: EPS: PPM: CXR: Chest CT Scan: Radiography Diagnostic Testing: Radiology Impression Chest X-Ray 11/30/24 05:05 IMPRESSION: AICD is in good position. No evidence for acute abnormality. Reading Location: [place] [address] Physical Exam Const alert, oriented x3 and no apparent distress General Appearance: cooperative HEENT hearing grossly normal bilaterally Head and Scalp: atraumatic Eyes EOMs intact bilaterally Neck General: normal visual inspection Chest inspection of chest normal and palpation of chest normal Resp normal respiratory effort Auscultation: clear to auscultation bilaterally Cardio regular rate, regular rhythm, S1 normal heart sound and S2 normal heart sound Jugular Venous Distention: JVD GI normal to inspection, nondistended, normoactive bowel sounds Extremity normal capillary refill and no pedal edema Peripheral Pulses: Yes pulses 2+ throughout and femoral pulses present Skin no rashes or lesions noted Neuro oriented x3 and CN's II-XII intact bilaterally Psych Appearance: grossly normal and appropriate Assessment & Plan Assessment/Plan (1) S/P placement of cardiac pacemaker: PLAN: Patient is status post permanent pacemaker placement for high-grade AV block intermittent. Patient is doing well today chest x-ray demonstrates good position and pacemaker check appears to be functioning well. Patient will be discharged for outpatient follow-up.
--- NOTE | 2024-11-30 09:42 | DCINST_ITS ---
Discharge Instructions Diet Discharge Diet: No restrictions (as you feel able. No excessive stretching. No lifting your arm over your head (keep elbow below shoulder level) until seen for your pacemaker check. Do not lift your elbow away from your side until you are seen for your first visit. Keep the arm sling on if it helps remind you not to lift your arm.) DC O2, CPAP, BIPAP needs Home O2 Discharge instructions: No Dressing / Incision Discharge Activity: May Not Drive May shower in (days): 2 Additional Activity Instructions:: May shower or bathe on [day 3]. Do not scrub the incision or soak in the tub. Just wash with soap and let the water run over the incision. Gently pat dry with towel. Medications: Take your pain medication as directed. Refer to your discharge instruction sheet for a list of medications you are to take. Dressing / Incision Call your doctor if your incision/area has: Continuous Slow Oozing, Sudden Increased Bleeding, Increased Pain/ Swelling, Increased Redness, Foul Smelling Discharge and Swelling at the incision site Call your doctor if you observe: Fever of 101 or Higher, Shortness of breath, Dizziness, Fainting spells, Swelling in the ankles, Chest pain, Prolonged hiccupping and Increased palpitations (irregular heartbeat) Suture Line Care: Avoid Pulling/Pushing and Avoid Pinching/Bending Change Dressing in: do not change dressing Additional Dressing/Incision Instructions:: When dressing is removed, wash and dry incision. Keep covered with a light bandage if it is rubbing against your clothing. Do not cover the incision with an airtight bandage. Change the bandage daily. Do not remove steri strips. The strips will fall off on their own. Follow Up Care Please Follow Up With: George Mann MD When: Pacer follow-up on december 08 at 2;30 pm Test Results: Test results from this visit will be discussed in further detail at your follow- up appointment, if applicable. Discharge Plan Admission Admit Date/Time: 11/29/24 15:18 Attending Provider: George Mann Primary Care Provider: Luis Carter Chi Discharge Orders/Prescriptions Prescriptions: No Action gabapentin 300 mg capsule 300 mg PO QHS Arnuity Ellipta 200 mcg/actuation blister with device 1 inh inhalation QDAY aspirin [Adult Low Dose Aspirin] 81 mg tablet,delayed release (DR/EC) 81 mg PO QDAY Qty: 90 3RF diphenhydramine HCl [Benadryl] 25 mg capsule 25 mg PO QHS PRN atorvastatin 20 mg tablet 20 mg PO DAILY Qty: 30 11RF Referrals / Follow Up: Luis Carter Chi, MD [Primary Care Provider] - Disposition Disposition (needs filled in before D/C Order can be placed): Home, Self Care
--- NOTE | 2024-11-30 09:49 | PHA.DC.MR.R ---
Pharmacy [place] Med Reconciliation Pharmacy Service has performed discharge medication reconciliation for this patient. The patient's discharge medication list was reviewed for discrepancies and discrepancies were resolved. Medications at Discharge Home Medications gabapentin 300 mg capsule 300 mg PO QHS 09/03/24 aspirin 81 mg tablet,delayed release (Adult Low Dose Aspirin) 81 mg PO QDAY #90 tabs 10/20/24 fluticasone furoate 200 mcg/actuation blister powder for inhalation (Arnuity Ellipta) 1 inh inhalation QDAY 10/20/24 atorvastatin 20 mg tablet 20 mg PO DAILY #30 tabs 11/17/24 diphenhydramine HCl 25 mg capsule (Benadryl) 25 mg PO QHS PRN 11/26/24
[2024-11-30 09:52] VITALS: BP 174/84; PULSE 82; RESP 18; TEMP 36.6; O2SAT 98
--- NOTE | 2024-11-30 10:00 | CASEMGMT ---
Patient has order for discharge. RN CM in to discuss needs at discharge. Patient denies needs or help at discharge. Patient had no further questions or concerns.
--- NOTE | 2025-01-17 09:45 | CL.IE_ITS ---
Patient: MARIANO PENA Study Date: 11/29/2024 Performing: George Mann MD : 1965 Age: 59 Gender: male PROCEDURES PERFORMED [id number]-([id number])INITIAL PACER INSERT+DUAL LEADS INDICATIONS Sinoatrial node dysfunction/Sick sinus syndrome PROCEDURE DETAILS The patient was brought to the Catheterization Lab in the postabsorptive nonsedated state. Informed consent was obtained prior to the procedure. Local anesthetic was given subcutaneously to the left upper chest area with Lidocaine 2%. Access was achieved and a guidewire was advanced into the left subclavian vein. Incision was made to the left upper chest. A standard sheath was inserted into the left subclavian vein.. PPM ventricular lead was inserted / positioned to right ventricular apex. PPM ventricular lead testing performed. PPM ventricular lead testing performed. PPM atrial lead was inserted / positioned to the right atrial appendage. PPM atrial lead testing performed. Device pocket was irrigated with antibiotic. Subcutaneous closure was completed. Skin closure was completed. The patient tolerated the procedure well. Estimated Blood Loss: < 10 mls IMPLANTED / EX-PLANTED DEVICES IMPLANTED DEVICE(S): PPM Generator - Item Processing Clerk: [employer], Model # [id number] , Serial # [id number] PPM Atrial lead - Item Processing Clerk: [employer], Model # 7841 , Serial # [id number] PPM Ventricular lead - Item Processing Clerk: [employer], Model # 7842 , Serial # [id number] DEVICE PARAMETERS ATRIAL LEAD PARAMETERS: P wave- 3.3 (mV) Current- .9 (mA) threshold- .6 (V) impedence- 638 (OHMS) VENTRICULAR LEAD PARAMETERS: R wave- 18.6 (mV) Current- .5 (mA) threshold- .5 (V) impedence- 940 (OHMS) DEVICE PARAMETERS: Mode- ddd Lower rate- 60 Upper rate- 130 CONCLUSIONS / RECOMMENDATIONS Device Conclusions: Successful implantation of a dual chamber pacemaker Device Recommendations: Follow up with Primary Care Physician PROCEDURE MEDICATIONS Versed 1 mg IV Fentanyl 50 mcg IV Versed 1 mg IV Versed 1 mg IV Versed 1 mg IV Oxygen: 2 L/min via nasal cannula Ancef 2 Gm IV @ 11/29/2024 13:27:34 Signed By George Mann MD On 11/29/2024 14:47:34 George Mann MD
--- NOTE | 2025-01-17 09:45 | CL.IE_ITS ---
Patient: MARIANO PENA Study Date: 11/29/2024 Performing: George Mann MD : 1965 Age: 59 Gender: male PROCEDURES PERFORMED LP04-(23964)INITIAL PACER INSERT+DUAL LEADS INDICATIONS Sinoatrial node dysfunction/Sick sinus syndrome PROCEDURE DETAILS The patient was brought to the Catheterization Lab in the postabsorptive nonsedated state. Informed consent was obtained prior to the procedure. Local anesthetic was given subcutaneously to the left upper chest area with Lidocaine 2%. Access was achieved and a guidewire was advanced into the left subclavian vein. Incision was made to the left upper chest. A standard sheath was inserted into the left subclavian vein.. PPM ventricular lead was inserted / positioned to right ventricular apex. PPM ventricular lead testing performed. PPM ventricular lead testing performed. PPM atrial lead was inserted / positioned to the right atrial appendage. PPM atrial lead testing performed. Device pocket was irrigated with antibiotic. Subcutaneous closure was completed. Skin closure was completed. The patient tolerated the procedure well. Estimated Blood Loss: < 10 mls IMPLANTED / EX-PLANTED DEVICES IMPLANTED DEVICE(S): PPM Generator - Insulation Power Unit Tender: [employer], Model # [id number] , Serial # [id number] PPM Atrial lead - Insulation Power Unit Tender: [employer], Model # 7841 , Serial # [id number] PPM Ventricular lead - Insulation Power Unit Tender: [employer], Model # 7842 , Serial # [id number] DEVICE PARAMETERS ATRIAL LEAD PARAMETERS: P wave- 3.3 (mV) Current- .9 (mA) threshold- .6 (V) impedence- 638 (OHMS) VENTRICULAR LEAD PARAMETERS: R wave- 18.6 (mV) Current- .5 (mA) threshold- .5 (V) impedence- 940 (OHMS) DEVICE PARAMETERS: Mode- ddd Lower rate- 60 Upper rate- 130 CONCLUSIONS / RECOMMENDATIONS Device Conclusions: Successful implantation of a dual chamber pacemaker Device Recommendations: Follow up with Primary Care Physician PROCEDURE MEDICATIONS Versed 1 mg IV Fentanyl 50 mcg IV Versed 1 mg IV Versed 1 mg IV Versed 1 mg IV Oxygen: 2 L/min via nasal cannula Ancef 2 Gm IV @ 11/29/2024 13:27:34 Signed By George Mann MD On 11/29/2024 14:47:34 George Mann MD
== END 2024-11-30 10:11 | disposition home or self-care (01) ==
LOC: CLSP 15:56 → PCU 15:56
PROVIDERS: Nurse Practitioner Gerontology; Admitting Provider Internal Medicine Cardiovascular Disease; PCP Family Medicine Geriatric Medicine; Referring Provider Internal Medicine Cardiovascular Disease; Visit Provider Internal Medicine Cardiovascular Disease
DX: Z45.018 Encounter for adjustment and management of other part of cardiac pacemaker (principal); I49.5 Sick sinus syndrome; R55 Syncope and collapse; Z79.82 Long term (current) use of aspirin; Z79.899 Other long term (current) drug therapy; I10 Essential (primary) hypertension; J45.909 Unspecified asthma, uncomplicated; E78.5 Hyperlipidemia, unspecified; Z79.51 Long term (current) use of inhaled steroids; Z87.891 Personal history of nicotine dependence; I44.39 Other atrioventricular block
CPT/HCPCS: 33208; 36415; 71046; 71047; 80048; 81001; 84443; 85027; 85610; 99152; 99153; 99221; Q9967; C1894; G0378

== ENCOUNTER → 2025-02-02 | Outpatient (CLI) | payer OTHER, SELFPAY ==
[2025-02-02 10:24] LABS: Hematocrit 43.3 % (40-54); Hemoglobin 14.4 g/dL (13.0-16.5); Immature Granulocytes Count 0.020 X10^3/uL (0.0-0.0); Mean Corp Hgb Conc 33.3 g/dL (32-36); Mean Corpuscular Volume 93.9 fL (80-94); Mean Platelet Vol. 8.8 fl (6.2-12.0); NRBC Flagged by Analyzer 0 % (0-5); Platelet Count 350 K/mm3 (150-450); RBC Distribution Width CV 12.5 % (11.6-14.6); RBC Distribution Width SD 43.0 fl (35.1-43.9); Red Blood Count 4.61 M/mm3 (4.6-6.2); White Blood Count 7.4 K/mm3 (4.4-11.0)
[2025-02-02 10:55] LABS: Bilirubin, Direct 0.17 mg/dL (0.00-0.30)
[2025-02-02 11:04] LABS: AST(SGOT) 23 U/L (<=37); Alanine Aminotransfer ALT/SGPT 25 U/L (<=46); Albumin, Serum 4.2 g/dL (3.4-4.8); Alkaline Phosphatase 61 U/L (40-129); Anion Gap 10 (5-15); BUN 23 mg/dL (4-19); BUN/Creat Ratio 24.8 RATIO (10-20); Calcium,Total 9.7 mg/dL (7.6-11.0); Carbon Dioxide 27.9 mmol/L (21.0-32.0); Chloride 103 mmol/L (98-108); Globulin 3.2 g/dL (2.2-4.2); Glucose 117 mg/dL (70-99); PSA,Total - Annual Screen 0.70 ng/mL (0.02-4.00); Potassium 4.3 mmol/L (3.3-5.1)
[2025-02-03 12:01] LABS: Cholesterol 213 mg/dL (<=200); Low Density Lipoprotein Calc. 122 mg/dL; Triglycerides 135 mg/dL; Very Low Density Lipoprotein 27 mg/dL (5-40); cholesterol:hdl ratio screen 3.34
== END | disposition home or self-care (01) ==
LOC: POLAB3 09:51
PROVIDERS: Nurse Practitioner Family; PCP Family Medicine Geriatric Medicine; Visit Provider Family Medicine Geriatric Medicine
DX: I10 Essential (primary) hypertension (principal); E03.9 Hypothyroidism, unspecified; E78.5 Hyperlipidemia, unspecified; R35.0 Frequency of micturition
CPT/HCPCS: 36415; 80053; 80061; 82248; 84153; 84443; 85025; G0103